=== PATIENT | male | born 1965 | race Caucasian/White ===

== ENCOUNTER → 2018-01-26 11:00 | Outpatient (CLI) | payer MEDICAID, SELFPAY ==
[2018-01-26 11:29] LABS: Hemoglobin A1C 5.6 % (0.0-7.0)
[2018-01-26 11:46] LABS: Basophils # 0.1 K/mm3 (0-0.2); Basophils % 0.6 % (0.1-2.0); Eosinophils # 0.4 K/mm3 (0.0-0.4); Eosinophils % 4.2 % (0.1-12.0); Hematocrit 43.5 % (42.0-52.0); Hemoglobin 13.8 g/dL (14.1-18.0); Lymphocytes # 2.3 K/mm3 (0.7-4.5); Lymphocytes % 21.8 K/mm3 (10-50); Mean Corpuscular HGB Conc 31.8 g/dL (31.8-35.4); Mean Corpuscular Hemoglobin 29.8 pg (27.0-31.2); Mean Corpuscular Volume 93.7 fl (80-94); Mean Platelet Volume 7.9 fl (7.4-10.4); Monocytes # 0.7 K/mm3 (0.1-1.0); Monocytes % 6.9 % (1.7-9.3); Neutrophils % 66.5 % (37.0-80.0); Platelet Count 269 K/mm3 (142-424); Red Blood Count 4.65 M/mm3 (4.60-6.20); Red Cell Distribution Width 14.5 % (11.5-17.5); White Blood Count 10.5 K/mm3 (4.8-10.8)
[2018-01-26 13:03] LABS: Alanine Aminotransferase 34 U/L (12-78); Albumin Level 3.1 gm/dL (3.4-5.0); Albumin/Globulin Ratio 0.7 (1.1-1.8); Alkaline Phosphatase 90 U/L (46-116); Anion Gap 10.2 mEq/L (5-15); Aspartate Amino Transferase 19 U/L (15-37); Bilirubin,Total 0.3 mg/dL (0.2-1.0); Blood Urea Nitrogen 17 mg/dL (7-18); Calcium 8.7 mg/dL (8.5-10.1); Carbon Dioxide 30 mmol/L (21.0-32.0); Chloride 103 mmol/L (98-107); Cholesterol 206 mg/dL (140-200); Creatinine,Serum 1.02 mg/dL (0.70-1.30); Estimated Glomerular Filt Rate 77 ml/min (>60); GFR (African American) 93 ML/MIN (>60); Globulin 4.2 gm/dl (1.3-3.2); Glucose 88 mg/dL (74-106); HDL Cholesterol 69 mg/dL (27-67); LDL Cholesterol 122 mg/dL (0-130); Potassium 4.2 mmoL/L (3.5-5.1); Sodium 139 mmol/L (136-145); Thyroid Stimulating Hormone 2.74 uIU/ml (0.358-3.740); Total Protein,Serum 7.3 gm/dL (6.4-8.2); Triglycerides 75 mg/dL (30-200); VLDL Cholesterol 15 mg/dL (0-40)
== END ==
PROVIDERS: PCP Nurse Practitioner Family; Visit Provider Nurse Practitioner Family
DX: R73.9 Hyperglycemia, unspecified (principal); L03.115 Cellulitis of right lower limb; L03.116 Cellulitis of left lower limb; Z00.00 Encounter for general adult medical examination without abnormal findings; Z68.43 Body mass index [BMI] 50.0-59.9, adult
CPT/HCPCS: 36415; 80053; 80061; 83036; 84443; 85025

== ENCOUNTER 2018-05-20 10:08 | Outpatient (RCR) | payer MEDICAID, SELFPAY ==
--- NOTE | 2018-05-20 12:05 | HMH.PTOPWND ---
Rehab Outpt Wound Evaluation Rehab OP Wound Evaluation Start: 05/20/18 10:20 Freq: Status: Active Protocol: Document 05/20/18 11:55 LIANE (Rec: 05/20/18 12:03 PHOFERNANDO [id number]) Electronically Signed By Alexsander Benitez, PT 05/20/18 11:55 Subjective/History History History Pt is 52 yo white male who presents with c/o left LE edema and weeping drainage x ~ 1 yr. 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 He reports no pain at rest, but does have tenderness to palpation and intermittent numbness/tingling. He also reports he has previpously had symptoms in the right LE, as well. He reports no significant PMH. Wound Eval Wound Left Lateral Calf Wound Type Stasis Ulcer Is This a Chronic Wound Yes Wound Length (cm) 10.0 Wound Width (cm) 5.3 Wound Bed Appearance Buhler Edematous Wound Margins Description Macerated Surrounding Tissue Appearance Buhler Edema Type Non-Pitting Edema Appearance Weeping Shiny Tight Hard Open Sores Red Drainage Description Serous Drainage Amount Copious Wound Topical Solution/Irrigant Saline Irrigant Packing Type Alginate Primary Dressing Unna Boot Wound Secondary Dressing Type Gauze Roll/Wrap Adhering Gauze Roll Wound Debridement Method Mechanical Wound Debridement Amount of Tissue Minimal Removed Dressing Change Patient Tolerance Tolerated Well Lymphedema Eval Classification of Lymphedema Secondary Lymphedema Yes: due to CVI Stage of Lymphedema Lymphedema stages Stage III (Non-pitting, fibrosis and sclerosis, skin changes) Skin Changes Dry Skin Yes Taut, Shiny Skin Yes Skin Folds Yes Papillomatosis Yes Redness Yes Blisters Yes Wounds
[2018-05-20 12:51] LABS: Basophils # 0.1 K/mm3 (0-0.2); Basophils % 0.6 % (0.1-2.0); Eosinophils # 0.5 K/mm3 (0.0-0.4); Eosinophils % 5.5 % (0.1-12.0); Hematocrit 44.1 % (42.0-52.0); Hemoglobin 13.7 g/dL (14.1-18.0); Lymphocytes # 1.9 K/mm3 (0.7-4.5); Lymphocytes % 18.8 K/mm3 (10-50); Mean Corpuscular Hemoglobin 29.1 pg (27.0-31.2); Mean Platelet Volume 7.7 fl (7.4-10.4); Monocytes # 0.6 K/mm3 (0.1-1.0); Monocytes % 5.7 % (1.7-9.3); Neutrophils # 6.9 K/mm3 (1.8-7.8); Neutrophils % 69.4 % (37.0-80.0); Platelet Count 279 K/mm3 (142-424); Red Blood Count 4.69 M/mm3 (4.60-6.20); Red Cell Distribution Width 14.9 % (11.5-17.5); White Blood Count 9.9 K/mm3 (4.8-10.8)
[2018-05-20 13:47] LABS: Alanine Aminotransferase 36 U/L (12-78); Albumin Level 3.2 gm/dL (3.4-5.0); Albumin/Globulin Ratio 0.7 (1.1-1.8); Alkaline Phosphatase 100 U/L (46-116); Anion Gap 11.2 mEq/L (5-15); Aspartate Amino Transferase 27 U/L (15-37); Bilirubin,Total 0.6 mg/dL (0.2-1.0); Blood Urea Nitrogen 12 mg/dL (7-18); Calcium 8.9 mg/dL (8.5-10.1); Carbon Dioxide 30 mmol/L (21.0-32.0); Chloride 101 mmol/L (98-107); Creatinine,Serum 0.92 mg/dL (0.70-1.30); Estimated Glomerular Filt Rate 86 ml/min (>60); GFR (African American) 105 ML/MIN (>60); Globulin 4.3 gm/dl (1.3-3.2); Glucose 93 mg/dL (74-106); Magnesium 1.9 mg/dL (1.4-2.2); Potassium 4.2 mmoL/L (3.5-5.1); Sodium 138 mmol/L (136-145); Total Protein,Serum 7.5 gm/dL (6.4-8.2)
== END 2018-05-20 10:09 | disposition home or self-care (01) ==
LOC: PT 10:08
PROVIDERS: PCP Nurse Practitioner Family; Visit Provider Nurse Practitioner Family
DX: I89.0 Lymphedema, not elsewhere classified (principal); R60.9 Edema, unspecified
CPT/HCPCS: 36415; 80053; 83735; 83880; 85025; 97162

== ENCOUNTER → 2018-05-20 12:45 | Outpatient (CLI) | payer MEDICAID, SELFPAY | PROVIDERS: Visit Provider Internal Medicine | DX: R06.02 Shortness of breath (principal); I50.31 Acute diastolic (congestive) heart failure | CPT/HCPCS: 36415; 80053; 83735; 83880; 85025 ==

== ENCOUNTER → 2018-08-10 09:30 | Outpatient (CLI) | payer MEDICAID, SELFPAY ==
[2018-08-10 13:04] LABS: Alanine Aminotransferase 53 U/L (12-78); Albumin Level 3.3 gm/dL (3.4-5.0); Albumin/Globulin Ratio 0.8 (1.1-1.8); Alkaline Phosphatase 95 U/L (46-116); Anion Gap 12.4 mEq/L (5-15); Aspartate Amino Transferase 29 U/L (15-37); Bilirubin,Total 0.5 mg/dL (0.2-1.0); Blood Urea Nitrogen 13 mg/dL (7-18); Calcium 8.9 mg/dL (8.5-10.1); Carbon Dioxide 29 mmol/L (21.0-32.0); Chloride 105 mmol/L (98-107); Creatinine,Serum 1.03 mg/dL (0.70-1.30); Estimated Glomerular Filt Rate 76 ml/min (>60); Free Thyroxine Index 2.2 ug/dL (5.93-13.13); GFR (African American) 91 ML/MIN (>60); Globulin 4.3 gm/dl (1.3-3.2); Glucose 99 mg/dL (74-106); Magnesium 1.9 mg/dL (1.4-2.2); Potassium 4.4 mmoL/L (3.5-5.1); Sodium 142 mmol/L (136-145); Thyroid Stimulating Hormone 1.96 uIU/ml (0.358-3.740); Total Protein,Serum 7.6 gm/dL (6.4-8.2); Triiodothryronine (T3) Uptake 36 % (31-39)
== END ==
PROVIDERS: PCP Nurse Practitioner Family; Visit Provider Nurse Practitioner Family
DX: I89.0 Lymphedema, not elsewhere classified (principal); Z68.43 Body mass index [BMI] 50.0-59.9, adult
CPT/HCPCS: 36415; 80053; 83735; 84436; 84443; 84479

== ENCOUNTER 2018-10-05 20:57 | Inpatient (IN) ==
--- NOTE | 2018-10-05 21:23 | Emergency Department Note ---
ED Disposition Clinical Impression: Cellulitis of left lower extremity Disposition: Still a Patient Condition on Discharge: Fair - Critical Care Critical Care Time: No Attestation: On 10/05/18, the high probability of a clinically significant, sudden or life threatening deterioration of the following system(s) required my full and direct attention, intervention and personal management. The time I documented below is in addition to time spent performing reported procedures but includes the following listed in this critical care notation. Medical Decision Making - Sajan Inquiry Pt receiving controlled substance: No Vital Signs: 10/05/18 21:02 Temperature 98.0 F Temperature Source Oral Respiratory Rate 18 Blood Pressure [Right Arm] 118/74 Blood Pressure Mean [Right Arm] 88 Blood Pressure Source [Right Arm] Automatic Cuff Blood Pressure Position [Right Arm] Sitting 02 Sat by Pulse Oximetry 95 - Lab Data Lab Results 10/05/18 21:15: WBC 13.9 H, RBC 4.01 L, Hgb 12.3 L, Hct 39.4 L, MCV 98.1 H, MCH 30.6, MCHC 31.2 L, RDW 14.9, Plt Count 322, MPV 7.5, Neut % (Auto) 78.7, Lymph % (Auto) 12.4, [place] % (Auto) 5.0, Eos % (Auto) 2.8, Baso % (Auto) 1.1, Neut # (Auto) 10.9 H, Lymph # (Auto) 1.7, [place] # (Auto) 0.7, Eos # (Auto) 0.4, Baso # (Auto) 0.2 10/05/18 21:15: Sodium 137, Potassium 4.4, Chloride 99, Carbon Dioxide 29, Anion Gap 13.4, BUN 26 H, Creatinine 1.19, Estimated Creat Clear 74, Estimated GFR 64, Est GFR ( Amer) 77, Glucose 171 H, Calcium 8.8, Total Bilirubin 0.4, AST 22, ALT 32, Alkaline Phosphatase 154 H, C-Reactive Protein 19.6 H, Total Protein 8.2, Albumin 2.0 L, Globulin 6.2 H, Albumin/Globulin Ratio 0.3 L 10/05/18 21:15: Lactate 1.3 10/05/18 21:15: ESR > 120 H 10/05/18 21:15: D-Dimer 1760 H* 10/05/18 21:15: Hemoglobin A1c 5.9 Result diagrams: 10/05/18 21:15 10/05/18 21:15 Orders (Tests/Meds): ED MEDICATIONS Generic Name Dose Route Start Last Admin Trade Name Freq PRN Reason Stop Dose Admin Enoxaparin Sodium 175 mg 10/05/18 22:45 Lovenox 150mg/Ml Syringe SQ 11/04/18 22:44 Q12H MARTINEZ Vancomycin HCl 2,500 mg/ 250 mls @ 125 mls/hr 10/05/18 22:30 Sodium Chloride IV 10/19/18 22:29 Q12H MARTINEZ Discontinued Medications Generic Name Dose Route Start Last Admin Trade Name Freq PRN Reason Stop Dose Admin Miscellaneous 1 each 10/05/18 21:41 Vancomycin Consult Request NOTAPPLIC 10/05/18 21:42 CONSULT PHARMACY ONE Potassium Chloride 60 meq 10/05/18 21:32 10/05/18 21:55 Klor-Con 20meq Tablet PO 10/05/18 21:33 Not Given ONCE ONE Potassium Chloride/Water 20 meq 10/05/18 21:32 Potassium Chloride 20meq/100ml Ivpb IV 10/05/18 21:33 ONCE ONE ORDERS Category Date Time Status Blood Culture Stat Micro 10/05/18 21:17 Ordered - Physician Consults Physician Consulted: Blake Yousif Time: 22:33 Reason -: Admission Comment/Response: Agrees to admit the patient to the hospital. We discussed the patient's clinical information, including history, exam, laboratory and radiology results and ED course. Per hospital procedure, I will write temporary bridge inpatient orders on the patient. Specific orders requested by the admitting physician: Vancomycin. Lovenox and inpatient Doppler ultrasound if d- dimer elevated. Hemoglobin A1c. Low-dose sliding scale insulin. General Adult HPI - General Chief complaint: Skin/Abscess/Foreign Body Stated complaint: Legs swelling, blisters, poss cellulitis Time Seen by Provider: 10/05/18 21:23 Mode of Arrival: Wheelchair Limitations: Physical Limitations Description of Symptoms (Recalled from ER Triage Doc. by RN): Pt reports cellulitis in hes left leg. Redness blisters edema and pain reported from the tip of is toes to his upper leg. Pt reports he is currently on antibiotics but the condition has gotten worse. - History of Present Illness HPI narrative: Complains of cellulitis in his left leg began on Sunday. Has a history of recurrent cellulitis of his legs. He has lymphedema and venous stasis. He normally has some red discoloration of his left lower extremity between his knee and his foot, but on Sunday it began getting red above his knee up to his proximal thigh and down into his foot. He has also developed a large mass swelling of his foot. Blister formation has begun as well and he has blisters on his toes, pandey, and medial left thigh left knee. His says that he had some subjective fevers and chills on Sunday and Sunday, temperature not taken. He says that the leg feels hot as well. He was started on doxycycline on by a phone prescription but has not improved, has worsened. He was to see his primary care provider this morning, but could not make it to his appointment because [place] was [place] of [place] and was advised to come to the emergency room tonight instead. 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 He was in [place] earlier today. Denies prior history of DVT. He is not having any chest pain or shortness of breath. - Related Data Home Medications Medication Instructions Recorded Confirmed Doxycycline Hyclate [Doxycycline 100 mg PO BID 10/05/18 10/05/18 100mg Capsule] Furosemide [Furosemide 40MG tAB] 40 mg PO BID 10/05/18 10/05/18 Spironolactone 50 mg PO BID 10/05/18 10/05/18 Allergies Allergy/AdvReac Type Severity Reaction Status Date / Time grass pollen Allergy Severe Sneezing Verified 10/05/18 21:08 [facility] History Medical History: Reports:: Hyperlipidemia Other Surgeries: Yes: No Previous Surgery Amputation: No Fractures: No Comment: Dental - Social History Smoking Status: Former smoker Alcohol Intake: current Alcohol Intake Frequency:: a few times a month Substance Use Type: denies use - Psychiatric History Expresses thoughts of harming self/others: None Suicide Plan Description: No Plan Family Hx:: Cancer, Heart Attack ROS Obtained: Yes All systems reviewed & no additional complaints - Constitutional Constitutional: Reports chills, Reports fever(s) (Subjective) - Cardiovascular Cardiovascular: Denies chest pain - Respiratory Respiratory: No dyspnea - Gastrointestinal Gastrointestingal: Denies: diarrhea, vomiting - Musculoskeletal Musculoskeletal: Reports as per HPI Physical Exam - General General appearance: alert, in no apparent distress Comment: Sitting in wheelchair - Head Head exam: atraumatic, normocephalic - Eye Eye exam: Present: normal appearance, PERRL, EOMI - ENT ENT exam: Present: mucous membranes moist - Neck Neck exam: Present: normal inspection, trachea midline - Chest Chest inspection: Present: normal inspection, symmetric chest wall rise - Respiratory Respiratory exam: Present: normal lung sounds bilaterally. Absent: respiratory distress - Cardiovascular Cardiovascular exam: Present: regular rate, normal rhythm, normal heart sounds - Abdominal Exam Abdominal exam: Present: soft. Absent: distention, tenderness - Expanded Lower Extremity Exam Left Comment: Lymphedema and venous stasis changes of both legs. The left lower extremity shows circumferential erythema, warmth, tenderness from the proximal thigh down to the tips of the toes. There is vesicle formation over the dorsum of the toes, pretibial area, and medial left knee and thigh. Large amount of edema of left lower extremity, 4+/4+. - Neurological Exam Neurological exam: Present: alert, oriented X3. Absent: motor sensory deficit - Psychiatric Psychiatric exam: Present: normal affect, normal mood - Skin Skin exam: Present: warm, dry
[2018-10-05 21:37] LABS: Basophils # 0.2 K/mm3 (0-0.2); Basophils % 1.1 % (0.1-2.0); Eosinophils # 0.4 K/mm3 (0.0-0.4); Eosinophils % 2.8 % (0.1-12.0); Hematocrit 39.4 % (42.0-52.0); Hemoglobin 12.3 g/dL (14.1-18.0); Lymphocytes # 1.7 K/mm3 (0.7-4.5); Lymphocytes % 12.4 % (10-50); Mean Corpuscular HGB Conc 31.2 g/dL (31.8-35.4); Mean Corpuscular Hemoglobin 30.6 pg (27.0-31.2); Mean Corpuscular Volume 98.1 fl (80-94); Mean Platelet Volume 7.5 fl (7.4-10.4); Monocytes # 0.7 K/mm3 (0.1-1.0); Neutrophils # 10.9 K/mm3 (1.8-7.8); Neutrophils % 78.7 % (37.0-80.0); Platelet Count 322 K/mm3 (142-424); Red Blood Count 4.01 M/mm3 (4.60-6.20); Red Cell Distribution Width 14.9 % (11.5-17.5); White Blood Count 13.9 K/mm3 (4.8-10.8)
[2018-10-05 21:52] LABS: Albumin/Globulin Ratio 0.3 (1.1-1.8); Anion Gap 13.4 mEq/L (5-15); Bilirubin,Total 0.4 mg/dL (0.2-1.0); Calcium 8.8 mg/dL (8.5-10.1); Globulin 6.2 gm/dl (1.3-3.2); Potassium 4.4 mmoL/L (3.5-5.1); Total Protein,Serum 8.2 gm/dL (6.4-8.2)
[2018-10-05 22:02] LABS: C-Reactive Protein 19.6 mg/L (0.0-0.9)
[2018-10-06 06:43] LABS: Basophils # 0.2 K/mm3 (0-0.2); Eosinophils # 0.3 K/mm3 (0.0-0.4); Eosinophils % 2.2 % (0.1-12.0); Hematocrit 36.4 % (42.0-52.0); Hemoglobin 11.3 g/dL (14.1-18.0); Lymphocytes # 1.8 K/mm3 (0.7-4.5); Lymphocytes % 11.8 % (10-50); Mean Corpuscular Hemoglobin 30.3 pg (27.0-31.2); Mean Corpuscular Volume 97.9 fl (80-94); Mean Platelet Volume 7.4 fl (7.4-10.4); Monocytes # 0.7 K/mm3 (0.1-1.0); Monocytes % 4.6 % (1.7-9.3); Neutrophils % 80.3 % (37.0-80.0); Platelet Count 322 K/mm3 (142-424); Red Blood Count 3.72 M/mm3 (4.60-6.20)
[2018-10-06 07:06] LABS: Anion Gap 21.6 mEq/L (5-15); Potassium 4.6 mmoL/L (3.5-5.1)
[2018-10-06 07:16] LABS: Hypochromasia 1+; Lymphocytes % 13 % (10-50); Monocytes % 4 % (2-9); Neutrophils % 78 % (42-76); Rouleaux 1+; Total Cells Counted 100
--- NOTE | 2018-10-06 07:28 | History & Physical Report ---
*Admission Date: 10/06/18 *Chief complaint: Left leg pain and swelling *History of present illness: 53-year-old male with history of chronic venous insufficiency and venous stasis with prior cellulitis of the right leg presented to the emergency department with pain, swelling, redness and heat radiating from the lower leg. 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 Yousif's office as he believes he was developing cellulitis in the left leg. He was placed on oral antibiotics and initial plan had been for the patient follow-up in office yesterday. Due to travel delays patient did not get home until yesterday evening and because of the continued pain, redness, swelling in the left leg he presented to the emergency department. In the emergency department he was diagnosed with a cellulitis of the left leg and foot and has been admitted for IV antibiotics. Patient believes he has had fevers as high as 102 degrees prior to presentation. He has had increasing difficulty ambulating because of the pain in his leg. [facility] History Medical History: Reports:: Congestive Heart Failure, Hyperlipidemia, Hypertension Comment: Chronic venous insufficiency of both legs, morbid obesity Other Surgeries: Yes: No Previous Surgery Amputation: No Fractures: No - *Social History Educational Level: Attended College Smoking Status: Former smoker Alcohol Intake: current Alcohol Intake Frequency:: a few times a month Substance Use Type: denies use Occupational Status: employed Housing: house Household Members: spouse - Psychiatric History Expresses thoughts of harming self/others: None Suicide Plan Description: No Plan *Family Hx:: Cancer, Heart Attack Review of Systems - Constitutional Reports chills, Denies body ache(s), Denies malaise - *Cardiovascular Denies chest pain, Denies chest pain at rest - *Respiratory Denies chest congestion, Denies cough, Denies shortness of breath - *Gastrointestinal Denies abdominal pain - *Musculoskeletal Reports abnormal walking - Integumentary/Breasts Reports change in skin color, Reports changing lesions, Reports redness Meds Home Medications Medication Instructions Recorded Confirmed Type Doxycycline Hyclate [Doxycycline 100 mg PO BID 10/05/18 10/05/18 History 100mg Capsule] Furosemide [Furosemide 40MG tAB] 40 mg PO BID 10/05/18 10/05/18 History Spironolactone 50 mg PO BID 10/05/18 10/05/18 History Allergies Allergy/AdvReac Type Severity Reaction Status Date / Time grass pollen Allergy Severe Sneezing Verified 10/05/18 21:08 Exam Vital signs and Labs for Last 24 Hours: Temp Pulse Resp BP Pulse Ox 98.8 F 91 H 20 113/60 90 L 10/06/18 04:00 10/06/18 04:00 10/06/18 04:00 10/06/18 04:00 10/06/18 04:00 Laboratory Results - last 24 hr 10/05/18 21:15: WBC 13.9 H, RBC 4.01 L, Hgb 12.3 L, Hct 39.4 L, MCV 98.1 H, MCH 30.6, MCHC 31.2 L, RDW 14.9, Plt Count 322, MPV 7.5, Neut % (Auto) 78.7, Lymph % (Auto) 12.4, [place] % (Auto) 5.0, Eos % (Auto) 2.8, Baso % (Auto) 1.1, Neut # (Auto) 10.9 H, Lymph # (Auto) 1.7, [place] # (Auto) 0.7, Eos # (Auto) 0.4, Baso # (Auto) 0.2 10/05/18 21:15: Sodium 137, Potassium 4.4, Chloride 99, Carbon Dioxide 29, Anion Gap 13.4, BUN 26 H, Creatinine 1.19, Estimated Creat Clear 74, Estimated GFR 64, Est GFR ( Amer) 77, Glucose 171 H, Calcium 8.8, Total Bilirubin 0.4, AST 22, ALT 32, Alkaline Phosphatase 154 H, C-Reactive Protein 19.6 H, Total Protein 8.2, Albumin 2.0 L, Globulin 6.2 H, Albumin/Globulin Ratio 0.3 L 10/05/18 21:15: Lactate 1.3 10/05/18 21:15: ESR > 120 H 10/05/18 21:15: D-Dimer 1760 H* 10/05/18 21:15: Hemoglobin A1c 5.9 10/06/18 06:05: POC Glucose 120 H 10/06/18 06:15: WBC 15.0 H, RBC 3.72 L, Hgb 11.3 L, Hct 36.4 L, MCV 97.9 H, MCH 30.3, MCHC 31.0 L, RDW 15.0, Plt Count 322, MPV 7.4, Neut % (Auto) 80.3 H, Lymph % (Auto) 11.8, [place] % (Auto) 4.6, Eos % (Auto) 2.2, Baso % (Auto) 1.0, Neut # (Auto) 12.0 H, Lymph # (Auto) 1.8, [place] # (Auto) 0.7, Eos # (Auto) 0.3, Baso # (Auto) 0.2, Total Counted 100, Neutrophils % (Manual) 78 H, Band Neutrophils % 5.0, Lymphocytes % (Manual) 13, Monocytes % (Manual) 4, Platelet Estimate Normal, Hypochromasia 1+, Rouleaux 1+ 10/06/18 06:15: Sodium 139, Potassium 4.6, Chloride 102, Carbon Dioxide 20 L D, Anion Gap 21.6 H, BUN 20 H, Creatinine 1.03, Estimated Creat Clear 86, Estimated GFR 76, Est GFR ( Amer) 91, Glucose 128 H D, Calcium 8.0 L I & O for Last 24 hours: Intake & Output 10/03/18 10/04/18 10/05/18 10/06/18 11:59 11:59 11:59 11:59 Intake Total 850 / 850 Output Total 700 / 700 Balance 150 / 150 Weight 354 lb 3 oz - Constitutional no acute distress - *Routine Respiratory Exam Present: CTA bilaterally - *Routine Cardiovascular Exam Present: RRR, Normal S1, Normal S2. Absent: murmur - *Routine Abdominal Exam Comments: Obese and soft - *Routine Extremities Exam Comments: The left leg is swollen and erythematous from the mid thigh to the foot. Patient has some sloughing of skin over the mid pandey. Significant nodularity of the skin below the knee consistent with his chronic venous insufficiency. Foot and lower leg are tender to palpation. Assessment and Plan (1) Cellulitis of left lower extremity Current visit: Yes Status: Acute Category: Medical Code(s): L03.116 - Cellulitis of left lower limb (2) Morbid obesity Current visit: Yes Status: Acute Category: Medical Code(s): E66.01 - Morbid (severe) obesity due to excess calories (3) Chronic venous insufficiency Current visit: Yes Status: Acute Category: Medical Code(s): I87.2 - Venous insufficiency (chronic) (peripheral) - Assessment and plan all Dx Assessment and Plan for all problems:: Patient has been admitted and placed on vancomycin. I am going to add clindamycin to his regimen. Home medications will be ordered. Patient had el evated d-dimer along with his complaint of left leg pain and a venous Doppler will be performed. Continue Lovenox at this time
--- NOTE | 2018-10-06 09:45 | Pharmacy Consult Notes ---
[facility] Pharmacy VTE Monitoring - Patient Demographics Admission date: 10/05/18 Report Date: 10/06/18 Time: 09:45 Allergies/Adverse Reactions: Patient Allergies grass pollen Allergy (Severe, Verified 10/05/18 21:08) Sneezing Height: 1.78 m Weight: 160.657 kg Patient Problems: Current Active Problems Cellulitis of left lower extremity (Acute) Morbid obesity (Acute) Chronic venous insufficiency (Acute) - VTE Risk Labs: VTE Related Lab Results Hgb 11.3 g/dL (14.1-18.0) L 10/06/18 06:15 Hct 36.4 % (42.0-52.0) L 10/06/18 06:15 Plt Count 322 K/mm3 (142-424) 10/06/18 06:15 BUN 20 mg/dL (7-18) H 10/06/18 06:15 Creatinine 1.03 mg/dL (0.70-1.30) 10/06/18 06:15 Estimated Creat Clear 86 mL/min (50-200) 10/06/18 06:15 Was VTE Risk Assessment Performed: Yes VTE Score: 3 VTE Risk Level: Low Risk - Prophylaxis VTE Prophylaxis Ordered?: Yes Types of VTE Prophylaxis: Pharmacological Pharmacologic Type: Enoxaparin - VTE Diagnosis Confirmed Treatment or plan recommended: Continue Current Treatment
--- NOTE | 2018-10-06 09:45 | Pharmacy Consult Notes ---
- Pharmacy Consult Date: 10/06/18 Time: 09:42 Referring provider: DR. ARREDONDO Reason for Consult:: VANCOMYCIN DOSING Allergies and ADEs:: Allergies Allergy/AdvReac Type Severity Reaction Status Date / Time grass pollen Allergy Severe Sneezing Verified 10/05/18 21:08 Home Medications:: Home Medications Medication Instructions Recorded Confirmed Type Doxycycline Hyclate [Doxycycline 100 mg PO BID 10/05/18 10/05/18 History 100mg Capsule] Furosemide [Furosemide 40MG tAB] 40 mg PO BID 10/05/18 10/05/18 History Spironolactone 50 mg PO BID 10/05/18 10/05/18 History Height: 1.78 m Weight: 160.657 kg Laboratory Results:: Laboratory Results - last 24 hr 10/05/18 21:15: WBC 13.9 H, RBC 4.01 L, Hgb 12.3 L, Hct 39.4 L, MCV 98.1 H, MCH 30.6, MCHC 31.2 L, RDW 14.9, Plt Count 322, MPV 7.5, Neut % (Auto) 78.7, Lymph % (Auto) 12.4, [place] % (Auto) 5.0, Eos % (Auto) 2.8, Baso % (Auto) 1.1, Neut # (Auto) 10.9 H, Lymph # (Auto) 1.7, [place] # (Auto) 0.7, Eos # (Auto) 0.4, Baso # (Auto) 0.2 10/05/18 21:15: Sodium 137, Potassium 4.4, Chloride 99, Carbon Dioxide 29, Anion Gap 13.4, BUN 26 H, Creatinine 1.19, Estimated Creat Clear 74, Estimated GFR 64, Est GFR ( Amer) 77, Glucose 171 H, Calcium 8.8, Total Bilirubin 0.4, AST 22, ALT 32, Alkaline Phosphatase 154 H, C-Reactive Protein 19.6 H, Total Protein 8.2, Albumin 2.0 L, Globulin 6.2 H, Albumin/Globulin Ratio 0.3 L 10/05/18 21:15: Lactate 1.3 10/05/18 21:15: ESR > 120 H 10/05/18 21:15: D-Dimer 1760 H* 10/05/18 21:15: Hemoglobin A1c 5.9 10/06/18 06:05: POC Glucose 120 H 10/06/18 06:15: WBC 15.0 H, RBC 3.72 L, Hgb 11.3 L, Hct 36.4 L, MCV 97.9 H, MCH 30.3, MCHC 31.0 L, RDW 15.0, Plt Count 322, MPV 7.4, Neut % (Auto) 80.3 H, Lymph % (Auto) 11.8, [place] % (Auto) 4.6, Eos % (Auto) 2.2, Baso % (Auto) 1.0, Neut # (Auto) 12.0 H, Lymph # (Auto) 1.8, [place] # (Auto) 0.7, Eos # (Auto) 0.3, Baso # (Auto) 0.2, Total Counted 100, Neutrophils % (Manual) 78 H, Band Neutrophils % 5.0, Lymphocytes % (Manual) 13, Monocytes % (Manual) 4, Platelet Estimate Normal, Hypochromasia 1+, [place] 1+ 10/06/18 06:15: Sodium 139, Potassium 4.6, Chloride 102, Carbon Dioxide 20 L D, Anion Gap 21.6 H, BUN 20 H, Creatinine 1.03, Estimated Creat Clear 86, Estimated GFR 76, Est GFR ( Amer) 91, Glucose 128 H D, Calcium 8.0 L Medical History: Reports:: Congestive Heart Failure, Hyperlipidemia, Hyper tension Assessment and Plan (1) Cellulitis of left lower extremity Current visit: Yes Status: Acute Category: Medical Code(s): L03.116 - Cellulitis of left lower limb (2) Morbid obesity Current visit: Yes Status: Acute Category: Medical Code(s): E66.01 - Morbid (severe) obesity due to excess calories (3) Chronic venous insufficiency Current visit: Yes Status: Acute Category: Medical Code(s): I87.2 - Venous insufficiency (chronic) (peripheral) - Assessment and plan all Dx Assessment and Plan for all problems:: BASED ON PATIENT FACTORS, RECOMMEND VANCOMYCIN 3,000MG IV Q12H. PATIENT WAS GIVEN ONE TIME DOSE OF 2,500MG LAST NIGHT, BUT PATIENT'S RENAL FUNCTION HAS IMPROVED AND WEIGHT IS DIFFERENT THAN WHEN FIRST DOSED. PHARMACY WILL OBTAIN TROUGH LEVEL PRIOR TO FOURTH DOSE AT 1000 ON 10/06/18 AND WILL ADJUST DOSE APPROPRIATE AT THAT POINT. -FARRAH WHITED
[2018-10-07 07:17] LABS: Basophils # 0.2 K/mm3 (0-0.2); Basophils % 1.1 % (0.1-2.0); Eosinophils # 0.3 K/mm3 (0.0-0.4); Eosinophils % 1.8 % (0.1-12.0); Hemoglobin 11.2 g/dL (14.1-18.0); Lymphocytes # 2.2 K/mm3 (0.7-4.5); Lymphocytes % 13.2 % (10-50); Mean Corpuscular Hemoglobin 30.6 pg (27.0-31.2); Mean Corpuscular Volume 98.7 fl (80-94); Mean Platelet Volume 7.1 fl (7.4-10.4); Monocytes # 0.9 K/mm3 (0.1-1.0); Monocytes % 5.3 % (1.7-9.3); Neutrophils # 13.2 K/mm3 (1.8-7.8); Neutrophils % 78.7 % (37.0-80.0); Platelet Count 356 K/mm3 (142-424); Red Blood Count 3.65 M/mm3 (4.60-6.20); White Blood Count 16.8 K/mm3 (4.8-10.8)
--- NOTE | 2018-10-07 07:46 | Non-Invasive Vascular Report ---
"Venous Exam Indications: 782.3 Edema. IMPRESSIONS 1. There is no evidence of significant Reflux. 2. No evidence of deep or superficial vein thrombosis involving the left lower extremity Left lower extremity venous duplex evaluation. Doppler flow study including spectral analysis, color and gresham scale imaging. Location: Vascular laboratory. Patient status: Inpatient. Incidental findings: A conspicuous lymph is noted incidentally on the left. Tables: Venous flow and imaging: + + + + |Location |Overall |Flow properties | + + + + |Left common femoral |Patent |Normal phasicity; | | | |spontaneous; normal | | | |augmentation; compressible | + + + + |Left saphenofemoral junction|Patent |Compressible | + + + + |Left profunda femoral |Patent |Compressible | + + + + |Left femoral |Patent |Normal phasicity; | | | |spontaneous; normal | | | |augmentation; compressible | + + + + |Left greater saphenous |Patent |Normal phasicity; | | | |spontaneous; normal | | | |augmentation; compressible | + + + + |Left popliteal |Patent |Normal phasicity; | | | |spontaneous; normal | | | |augmentation; compressible | + + + + |Left posterior tibial |Patent |Compressible | + + + + |Left peroneal |Not visualized| | + + + + |Left gastrocnemius |Patent |Compressible | + + + + |Left soleal |Patent |Compressible | + + + + (Report amended ) Electronically signed by: Sammy Grover [id number]"
--- NOTE | 2018-10-07 08:19 | Progress Note ---
Internal Medicine - PN: Subj *Date: 10/07/18 *Time: 08:18 Interval history: Patient is awake. Eating well. Alert. Has had no sensation of fevers through the night. Exam Vital signs and Labs for Last 24 Hours: Temp Pulse Resp BP Pulse Ox 98.4 F 85 22 141/73 H 96 10/07/18 07:57 10/07/18 07:57 10/07/18 07:57 10/07/18 07:57 10/07/18 07:57 Laboratory Results - last 24 hr 10/07/18 06:25: WBC 16.8 H, RBC 3.65 L, Hgb 11.2 L, Hct 36.0 L, MCV 98.7 H, MCH 30.6, MCHC 31.0 L, RDW 15.0, Plt Count 356, MPV 7.1 L, Neut % (Auto) 78.7, Lymph % (Auto) 13.2, [place] % (Auto) 5.3, Eos % (Auto) 1.8, Baso % (Auto) 1.1, Neut # (Auto) 13.2 H, Lymph # (Auto) 2.2, [place] # (Auto) 0.9, Eos # (Auto) 0.3, Baso # (Auto) 0.2 I & O for Last 24 hours: Intake & Output 10/04/18 10/05/18 10/06/18 10/07/18 11:59 11:59 11:59 11:59 Intake Total 1210 / 1210 2365 / 2365 Output Total 1550 / 1550 3440 / 3440 Balance -340 / -340 -1075 / -1075 Weight 354 lb 3 oz 354 lb 3 oz Narrative: Both legs edematous with lymphedema. Left leg more so, massively swollen with significant induration and redness throughout the leg with spots of significant skin sloughing. No pulses are palpable because of the edema. Patient has has a warm leg that is not exquisitely tender. Oropharynx clear, lungs clear, abdomen soft but obesity limits exam, heart rate regular. Assessment and Plan (1) Cellulitis of left lower extremity Current visit: Yes Status: Acute Category: Medical Code(s): L03.116 - Cellulitis of left lower limb (2) Morbid obesity Current visit: Yes Status: Acute Category: Medical Code(s): E66.01 - Morbid (severe) obesity due to excess calories (3) Chronic venous insufficiency Current visit: Yes Status: Acute Category: Medical Code(s): I87.2 - Venous insufficiency (chronic) (peripheral) - Assessment and plan all Dx Assessment and Plan for all problems:: Venous studies negative for DVT. Continue aggressive IV antibiotics. PT evaluation for lymphedema evaluation. I have strongly counseled patient that he cannot go back to work until the situation is essentially resolved. Also needs to work diligently on weight l oss.
[2018-10-07 08:23] LABS: Lymphocytes % 11 % (10-50); Monocytes % 7 % (2-9); Neutrophils % 80 % (42-76); Total Cells Counted 100
--- NOTE | 2018-10-07 11:00 | Pharmacy Consult Notes ---
- Pharmacy Consult Date: 10/07/18 Time: 10:59 Referring provider: DR. ARREDONDO Reason for Consult:: VANCOMYCIN TROUGH LEVEL Allergies and ADEs:: Allergies Allergy/AdvReac Type Severity Reaction Status Date / Time grass pollen Allergy Severe Sneezing Verified 10/05/18 21:08 Home Medications:: Home Medications Medication Instructions Recorded Confirmed Type Doxycycline Hyclate [Doxycycline 100 mg PO BID 10/05/18 10/05/18 History 100mg Capsule] Furosemide [Furosemide 40MG tAB] 40 mg PO BID 10/05/18 10/05/18 History Spironolactone 50 mg PO BID 10/05/18 10/05/18 History Height: 1.78 m Weight: 160.657 kg Laboratory Results:: Laboratory Results - last 24 hr 10/07/18 06:25: WBC 16.8 H, RBC 3.65 L, Hgb 11.2 L, Hct 36.0 L, MCV 98.7 H, MCH 30.6, MCHC 31.0 L, RDW 15.0, Plt Count 356, MPV 7.1 L, Neut % (Auto) 78.7, Lymph % (Auto) 13.2, [place] % (Auto) 5.3, Eos % (Auto) 1.8, Baso % (Auto) 1.1, Neut # (Auto) 13.2 H, Lymph # (Auto) 2.2, [place] # (Auto) 0.9, Eos # (Auto) 0.3, Baso # (Auto) 0.2, Total Counted 100, Neutrophils % (Manual) 80 H, Band Neutrophils % 2.0, Lymphocytes % (Manual) 11, Monocytes % (Manual) 7, Platelet Estimate Normal 10/07/18 10:00: Vancomycin Trough 17.1 Medical History: Reports:: Congestive Heart Failure, Hyperlipidemia, Hypertension Assessment and Plan (1) Cellulitis of left lower extremity Current visit: Yes Status: Acute Category: Medical Code(s): L03.116 - Cellulitis of left lower limb (2) Morbid obesity Current visit: Yes Status: Acute Category: Medical Code(s): E66.01 - Morbid (severe) obesity due to excess calories (3) Chronic venous insufficiency Current visit: Yes Status: Acute Category: Medical Code(s): I87.2 - Venous insufficiency (chronic) (peripheral) - Assessment and plan all Dx Assessment and Plan for all problems:: BASED ON PATIENT FACTORS AND VANCOMYCIN TROUGH LEVEL, RECOMMEND CONTINUING VANCOMYCIN 3 GM IV Q12H. PHARMACY WILL CONTINUE TO MONITOR DAILY AND ADJUST APPROPRIATE.
[2018-10-08 06:43] LABS: Basophils # 0.2 K/mm3 (0-0.2); Eosinophils # 0.3 K/mm3 (0.0-0.4); Eosinophils % 1.6 % (0.1-12.0); Hematocrit 37.9 % (42.0-52.0); Hemoglobin 11.8 g/dL (14.1-18.0); Lymphocytes # 1.9 K/mm3 (0.7-4.5); Lymphocytes % 11.4 % (10-50); Mean Corpuscular HGB Conc 31.2 g/dL (31.8-35.4); Mean Corpuscular Hemoglobin 30.4 pg (27.0-31.2); Mean Corpuscular Volume 97.4 fl (80-94); Mean Platelet Volume 7.3 fl (7.4-10.4); Monocytes # 0.9 K/mm3 (0.1-1.0); Monocytes % 5.6 % (1.7-9.3); Neutrophils # 13.4 K/mm3 (1.8-7.8); Neutrophils % 80.3 % (37.0-80.0); Platelet Count 377 K/mm3 (142-424); Red Blood Count 3.89 M/mm3 (4.60-6.20); White Blood Count 16.6 K/mm3 (4.8-10.8)
[2018-10-08 07:07] LABS: Albumin Level 1.9 gm/dL (3.4-5.0); Albumin/Globulin Ratio 0.3 (1.1-1.8); Anion Gap 10.8 mEq/L (5-15); Bilirubin,Total 0.5 mg/dL (0.2-1.0); Globulin 6.2 gm/dl (1.3-3.2); Potassium 4.8 mmoL/L (3.5-5.1); Total Protein,Serum 8.1 gm/dL (6.4-8.2)
--- NOTE | 2018-10-08 08:02 | Progress Note ---
Internal Medicine - PN: Subj *Date: 10/08/18 *Time: 08:45 Interval history: Cellulitis doing no better, though no worse. No pain, tolerating p.o. intake. Remains afebrile. Hemodynamically stable. Blood cultures negative. no change in leading edge of erythema. Exam Vital signs and Labs for Last 24 Hours: Temp Pulse Resp BP Pulse Ox 97.9 F 80 20 121/52 L 94 L 10/08/18 04:00 10/08/18 04:00 10/08/18 04:00 10/08/18 04:00 10/08/18 04:00 Laboratory Results - last 24 hr 10/07/18 06:25: Total Counted 100, Neutrophils % (Manual) 80 H, Band Neutrophils % 2.0, Lymphocytes % (Manual) 11, Monocytes % (Manual) 7, Platelet Estimate Normal 10/07/18 10:00: Vancomycin Trough 17.1 10/08/18 06:18: WBC 16.6 H, RBC 3.89 L, Hgb 11.8 L, Hct 37.9 L, MCV 97.4 H, MCH 30.4, MCHC 31.2 L, RDW 15.0, Plt Count 377, MPV 7.3 L, Neut % (Auto) 80.3 H, Lymph % (Auto) 11.4, [place] % (Auto) 5.6, Eos % (Auto) 1.6, Baso % (Auto) 1.0, Neut # (Auto) 13.4 H, Lymph # (Auto) 1.9, [place] # (Auto) 0.9, Eos # (Auto) 0.3, Baso # (Auto) 0.2 10/08/18 06:18: Sodium 135 L, Potassium 4.8, Chloride 97 L, Carbon Dioxide 32 D , Anion Gap 10.8, BUN 14 D, Creatinine 1.06, Estimated Creat Clear 83, Estimated GFR 73, Est GFR ( Amer) 88, Glucose 102, Calcium 9.0 D, Total Bilirubin 0.5, AST 24, ALT 37, Alkaline Phosphatase 134 H, Total Protein 8.1, Albumin 1.9 L, Globulin 6.2 H, Albumin/Globulin Ratio 0.3 L I & O for Last 24 hours: Intake & Output 10/05/18 10/06/18 10/07/18 10/08/18 23:59 23:59 23:59 23:59 Intake Total 2475 / 2475 2730 / 2730 230 / 230 Output Total 3550 / 3550 4840 / 4840 1900 / 1900 Balance -1075 / -1075 -2110 / -2110 -1670 / -1670 Weight 160.657 kg 160.657 kg 160.657 kg 160.657 kg Microbiology Reports for the Last 24 Hours: Microbiology 10/05/18 21:17 Blood Blood Culture - Preliminary NO GROWTH AFTER 48 HOURS 10/05/18 21:15 Blood Blood Culture - Preliminary NO GROWTH AFTER 48 HOURS Narrative: Both legs edematous with lymphedema. Left leg more so, massively swollen with significant induration and redness throughout the leg with spots of significant skin sloughing and blistering. Leading edge remains at previous dilia, no recession or progression No pulses are palpable because of the edema. Patient has has a warm leg that is not exquisitely tender. Oropharynx clear, lungs clear, abdomen soft but obesity limits exam, heart rate regular. LCTAB, no rhonchi, wheeze RRR, distant heart sounds Obese abdomen with edematous changes to skin on panus. Assessment and Plan (1) Cellulitis of left lower extremity Current visit: Yes Status: Acute Category: Medical Code(s): L03.116 - Cellulitis of left lower limb broaden coverage due to no improvement - continue Vanc IV - initiate Zosyn IV - DC Clinda - PICC ordered as patient will need continued treatment for total of 10-14 days pending improvement with broadened coverage (2) Morbid obesity Current visit: Yes Status: Acute Category: Medical Code(s): E66.01 - Morbid (severe) obesity due to excess calories (3) Chronic venous insufficiency Current visit: Yes Status: Acute Category: Medical Code(s): I87.2 - Venous insufficiency (chronic) (peripheral) - Assessment and plan all Dx Assessment and Plan for all problems:: will assess fro swing status vs continued inpatient coverage vs outpatient Abx management.. Not medically stable for DC at this time
[2018-10-08 08:17] LABS: Eosinophils % 2 % (0-3); Lymphocytes % 13 % (10-50); Monocytes % 7 % (2-9); Neutrophils % 77 % (42-76); Total Cells Counted 100
[2018-10-08 08:18] LABS: RBC Morphology Normal
[2018-10-09 06:53] LABS: Basophils # 0.1 K/mm3 (0-0.2); Basophils % 0.8 % (0.1-2.0); Eosinophils # 0.3 K/mm3 (0.0-0.4); Eosinophils % 1.9 % (0.1-12.0); Hematocrit 36.6 % (42.0-52.0); Hemoglobin 11.3 g/dL (14.1-18.0); Lymphocytes # 2.2 K/mm3 (0.7-4.5); Lymphocytes % 14.8 % (10-50); Mean Corpuscular HGB Conc 30.8 g/dL (31.8-35.4); Mean Corpuscular Volume 97.4 fl (80-94); Mean Platelet Volume 7.2 fl (7.4-10.4); Monocytes # 0.9 K/mm3 (0.1-1.0); Monocytes % 6.3 % (1.7-9.3); Neutrophils # 11.4 K/mm3 (1.8-7.8); Neutrophils % 76.2 % (37.0-80.0); Platelet Count 377 K/mm3 (142-424); Red Blood Count 3.76 M/mm3 (4.60-6.20); Red Cell Distribution Width 15.1 % (11.5-17.5); White Blood Count 14.9 K/mm3 (4.8-10.8)
--- NOTE | 2018-10-09 08:11 | Discharge Summary ---
General - General Admission date:: 10/05/18 Discharge date: 10/09/18 HPI HPI: 53-year-old male with history of chronic venous insufficiency and venous stasis with prior cellulitis of the right leg presented to the emergency department with pain, swelling, redness and heat radiating from the lower leg. 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 Yousif's office as he believes he was developing cellulitis in the left leg. He was placed on oral antibiotics and initial plan had been for the patient follow-up in office yesterday. Due to travel delays patient did not get home until yesterday evening and because of the continued pain, redness, swelling in the left leg he presented to the emergency department. In the emergency department he was diagnosed with a cellulitis of the left leg and foot and has been a dmitted for IV antibiotics. Patient believes he has had fevers as high as 102 degrees prior to presentation. He has had increasing difficulty ambulating because of the pain in his leg. Objective Vital signs: Temp Pulse Resp BP Pulse Ox 99.2 F 98 H 20 131/69 96 10/09/18 08:00 10/09/18 08:00 10/09/18 08:00 10/09/18 08:00 10/09/18 08:00 Results Labs on day of discharge: Labs from last 24 hours 10/09/18 10/08/18 06:24 06:18 WBC 14.9 H RBC 3.76 L Hgb 11.3 L Hct 36.6 L MCV 97.4 H MCH 30.0 MCHC 30.8 L RDW 15.1 Plt Count 377 MPV 7.2 L Neut % (Auto) 76.2 Lymph % (Auto) 14.8 [place] % (Auto) 6.3 Eos % (Auto) 1.9 Baso % (Auto) 0.8 Neut # (Auto) 11.4 H Lymph # (Auto) 2.2 [place] # (Auto) 0.9 Eos # (Auto) 0.3 Baso # (Auto) 0.1 Total Counted 100 Neutrophils % (Manual) 77 H Band Neutrophils % 1.0 Lymphocytes % (Manual) 13 Monocytes % (Manual) 7 Eosinophils % (Manual) 2 Platelet Estimate Normal RBC Morphology Normal Preliminary micro results at discharge 10/05/18 21:17 Blood Culture - Preliminary Blood NO GROWTH AFTER 48 HOURS 10/05/18 21:15 Blood Culture - Preliminary Blood NO GROWTH AFTER 48 HOURS DS: Diagnosis - Discharge Diagnosis (1) Cellulitis of left lower extremity Status: Acute (2) Morbid obesity Status: Acute (3) Chronic venous insufficiency Status: Acute Discharge Plan - Patient Discharge Instructions - Follow up Plan Home Medications: Home Medications Medication Instructions Recorded Confirmed Type Doxycycline Hyclate [Doxycycline 100 mg PO BID 10/05/18 10/05/18 History 100mg Capsule] Furosemide [Furosemide 40MG tAB] 40 mg PO BID 10/05/18 10/05/18 History Spironolactone 50 mg PO BID 10/05/18 10/05/18 History Prescriptions/Medication Reconciliation: No Action Furosemide [Furosemide 40MG tAB] 40 mg PO BID Doxycycline Hyclate [Doxycycline 100mg Capsule] 100 mg PO BID Spironolactone 50 mg PO BID
--- NOTE | 2018-10-09 08:12 | Progress Note ---
Internal Medicine - PN: Subj *Date: 10/09/18 *Time: 09:30 Interval history: Patient remained stable overnight. No fevers, hypotension, nausea vomiting, diarrhea, chest pain, shortness of breath. Tolerating vancomycin and Zosyn. PICC placed yesterday. Exam Vital signs and Labs for Last 24 Hours: Temp Pulse Resp BP Pulse Ox 99.2 F 98 H 20 131/69 96 10/09/18 08:00 10/09/18 08:00 10/09/18 08:00 10/09/18 08:00 10/09/18 08:00 Laboratory Results - last 24 hr 10/08/18 06:18: Total Counted 100, Neutrophils % (Manual) 77 H, Band Neutrophils % 1.0, Lymphocytes % (Manual) 13, Monocytes % (Manual) 7, Eosinophils % (Manual) 2, Platelet Estimate Normal, RBC Morphology Normal 10/09/18 06:24: WBC 14.9 H, RBC 3.76 L, Hgb 11.3 L, Hct 36.6 L, MCV 97.4 H, MCH 30.0, MCHC 30.8 L, RDW 15.1, Plt Count 377, MPV 7.2 L, Neut % (Auto) 76.2, Lymph % (Auto) 14.8, [place] % (Auto) 6.3, Eos % (Auto) 1.9, Baso % (Auto) 0.8, Neut # (Auto) 11.4 H, Lymph # (Auto) 2.2, [place] # (Auto) 0.9, Eos # (Auto) 0.3, Baso # (Auto) 0.1 I & O for Last 24 hours: Intake & Output 10/06/18 10/07/18 10/08/18 10/09/18 23:59 23:59 23:59 23:59 Intake Total 2475 / 2475 2730 / 2730 1440 / 1440 1140 / 1140 Output Total 3550 / 3550 4840 / 4840 4350 / 4350 2250 / 2250 Balance -1075 / -1075 -2110 / -2110 -2910 / -2910 -1110 / -1110 Weight 160.657 kg 160.657 kg 160.657 kg 115.298 kg - Constitutional no acute distress, morbidly obese - *Routine HEENT Exam Head: Present: normocephalic, atraumatic Eye: Present: EOMI, PERRL ENT: Present: mucous membranes moist - *Routine Neck Exam Present: supple. Absent: JVD - *Routine Respiratory Exam Present: CTA bilaterally. Absent: prolonged expiratory phase, rales, wheezes, crackles - *Routine Cardiovascular Exam Present: RRR, Normal S1, Normal S2. Absent: murmur - *Routine Abdominal Exam Present: soft, normoactive bowel sounds Comments: Protuberant - *Routine Rectal Exam Patient deferred: visual exam - *Routine Exam Patient deferred: penile exam - *Routine Extremities Exam Present: edema. Absent: cyanosis, clubbing Comments: Significant erythema to mid thigh, interval improvement with resection from leading edge line drawn several days ago. First sign of improvement since initiating antibiotics. Still warm, no new blistering, Unna boot in place. Toes warm with good cap refill - *Routine Skin Exam Present: intact - *Routine Neurological Exam Present: alert, oriented X3. Absent: altered mental status Assessment and Plan (1) Cellulitis of left lower extremity Current visit: Yes Status: Acute Category: Medical Code(s): L03.116 - Cellulitis of left lower limb (2) Morbid obesity Current visit: Yes Status: Acute Category: Medical Code(s): E66.01 - Morbid (severe) obesity due to excess calories (3) Chronic venous insufficiency Current visit: Yes Status: Acute Category: Medical Code(s): I87.2 - Venous insufficiency (chronic) (peripheral) - Assessment and plan all Dx Assessment and Plan for all problems:: Patient clinically showing some signs of response to antibiotics. -PICC in place -Continue IV vancomycin and Zosyn as currently ordered -Dressing change per wound care -Continues to require inpatient medical management, possible discharge this weekend pending home health and infusion partners or returning to clinic/wound care for binges and infusion partners. Family to discuss viable option for themselves.
--- NOTE | 2018-10-09 10:19 | Progress Note ---
Internal Medicine - PN: Subj *Date: 10/09/18 *Time: 10:19 Exam Vital signs and Labs for Last 24 Hours: Temp Pulse Resp BP Pulse Ox 99.2 F 98 H 20 131/69 96 10/09/18 08:00 10/09/18 08:00 10/09/18 08:00 10/09/18 08:00 10/09/18 08:00 Laboratory Results - last 24 hr 10/09/18 06:24: WBC 14.9 H, RBC 3.76 L, Hgb 11.3 L, Hct 36.6 L, MCV 97.4 H, MCH 30.0, MCHC 30.8 L, RDW 15.1, Plt Count 377, MPV 7.2 L, Neut % (Auto) 76.2, Lymph % (Auto) 14.8, [place] % (Auto) 6.3, Eos % (Auto) 1.9, Baso % (Auto) 0.8, Neut # (Auto) 11.4 H, Lymph # (Auto) 2.2, [place] # (Auto) 0.9, Eos # (Auto) 0.3, Baso # (Auto) 0.1 I & O for Last 24 hours: Intake & Output 10/06/18 10/07/18 10/08/18 10/09/18 23:59 23:59 23:59 23:59 Intake Total 2475 / 2475 2730 / 2730 1440 / 1440 1140 / 1140 Output Total 3550 / 3550 4840 / 4840 4350 / 4350 2250 / 2250 Balance -1075 / -1075 -2110 / -2110 -2910 / -2910 -1110 / -1110 Weight 160.657 kg 160.657 kg 160.657 kg 115.298 kg Assessment and Plan (1) Cellulitis of left lower extremity Current visit: Yes Status: Acute Category: Medical Code(s): L03.116 - Cellulitis of left lower limb (2) Morbid obesity Current visit: Yes Status: Acute Category: Medical Code(s): E66.01 - Morbid (severe) obesity due to excess calories (3) Chronic venous insufficiency Current visit: Yes Status: Acute Category: Medical Code(s): I87.2 - Venous insufficiency (chronic) (peripheral) The patient's infection will respond to the chosen ABx?: Yes Is the patient receiving the right drug, dose, and route?: Yes Could a more targeted ABx be ordered?: No
--- NOTE | 2018-10-09 11:12 | Pharmacy Consult Notes ---
- Pharmacy Consult Date: 10/09/18 Time: 11:11 Referring provider: DR. ARREDONDO Reason for Consult:: VANCOMYCIN TROUGH LEVEL Allergies and ADEs:: Allergies Allergy/AdvReac Type Severity Reaction Status Date / Time grass pollen Allergy Severe Sneezing Verified 10/05/18 21:08 Home Medications:: Home Medications Medication Instructions Recorded Confirmed Type Doxycycline Hyclate [Doxycycline 100 mg PO BID 10/05/18 10/05/18 History 100mg Capsule] Furosemide [Furosemide 40MG tAB] 40 mg PO BID 10/05/18 10/05/18 History Spironolactone 50 mg PO BID 10/05/18 10/05/18 History Height: 1.78 m Weight: 115.298 kg Laboratory Results:: Laboratory Results - last 24 hr 10/09/18 06:24: WBC 14.9 H, RBC 3.76 L, Hgb 11.3 L, Hct 36.6 L, MCV 97.4 H, MCH 30.0, MCHC 30.8 L, RDW 15.1, Plt Count 377, MPV 7.2 L, Neut % (Auto) 76.2, Lymph % (Auto) 14.8, [place] % (Auto) 6.3, Eos % (Auto) 1.9, Baso % (Auto) 0.8, Neut # (Auto) 11.4 H, Lymph # (Auto) 2.2, [place] # (Auto) 0.9, Eos # (Auto) 0.3, Baso # (Auto) 0.1 10/09/18 10:10: Vancomycin Trough 14.3 Medical History: Reports:: Congestive Heart Failure, Hyperlipidemia, Hypertension Assessment and Plan (1) Cellulitis of left lower extremity Current visit: Yes Status: Acute Category: Medical Code(s): L03.116 - Cellulitis of left lower limb (2) Morbid obesity Current visit: Yes Status: Acute Category: Medical Code(s): E66.01 - Morbid (severe) obesity due to excess calories (3) Chronic venous insufficiency Current visit: Yes Status: Acute Category: Medical Code(s): I87.2 - Venous insufficiency (chronic) (peripheral) - Assessment and plan all Dx Assessment and Plan for all problems:: BASED ON PATIENT FACTORS AND VANCOMYCIN TROUGH LEVEL, RECOMMEND CONTINUING VANCOMYCIN 3 GM IV Q12H. PHARMACY WILL CONTINUE TO MONITOR DAILY AND ADJUST APPROPRIATE.
[2018-10-10 06:16] LABS: Basophils # 0.1 K/mm3 (0-0.2); Basophils % 0.9 % (0.1-2.0); Eosinophils # 0.5 K/mm3 (0.0-0.4); Eosinophils % 3.4 % (0.1-12.0); Hematocrit 38.2 % (42.0-52.0); Hemoglobin 11.6 g/dL (14.1-18.0); Lymphocytes # 2.3 K/mm3 (0.7-4.5); Lymphocytes % 16.8 % (10-50); Mean Corpuscular HGB Conc 30.5 g/dL (31.8-35.4); Mean Corpuscular Volume 98.4 fl (80-94); Mean Platelet Volume 7.2 fl (7.4-10.4); Monocytes # 0.9 K/mm3 (0.1-1.0); Monocytes % 6.9 % (1.7-9.3); Neutrophils # 9.7 K/mm3 (1.8-7.8); Neutrophils % 72.1 % (37.0-80.0); Platelet Count 414 K/mm3 (142-424); Red Blood Count 3.88 M/mm3 (4.60-6.20); White Blood Count 13.4 K/mm3 (4.8-10.8)
[2018-10-10 06:21] LABS: Anion Gap 9.5 mEq/L (5-15); Potassium 4.5 mmoL/L (3.5-5.1)
--- NOTE | 2018-10-10 07:21 | Progress Note ---
Internal Medicine - PN: Subj *Date: 10/10/18 *Time: 07:19 Interval history: Patient has no complaints. He denies significant pain. He has been ambulating some. The superior part of his Unna boot has rolled down a little bit. Exam Vital signs and Labs for Last 24 Hours: Temp Pulse Resp BP Pulse Ox 98.8 F 76 18 118/80 89 L 10/10/18 04:58 10/10/18 04:58 10/10/18 04:58 10/10/18 04:58 10/10/18 04:58 Laboratory Results - last 24 hr 10/09/18 10:10: Vancomycin Trough 14.3 10/09/18 21:10: POC Glucose 137 H 10/10/18 05:55: WBC 13.4 H, RBC 3.88 L, Hgb 11.6 L, Hct 38.2 L, MCV 98.4 H, MCH 30.0, MCHC 30.5 L, RDW 15.0, Plt Count 414, MPV 7.2 L, Neut % (Auto) 72.1, Lymph % (Auto) 16.8, [place] % (Auto) 6.9, Eos % (Auto) 3.4, Baso % (Auto) 0.9, Neut # (Auto) 9.7 H, Lymph # (Auto) 2.3, [place] # (Auto) 0.9, Eos # (Auto) 0.5 H, Baso # (Auto) 0.1 10/10/18 05:55: Sodium 136, Potassium 4.5, Chloride 99, Carbon Dioxide 32, Anion Gap 9.5, BUN 14, Creatinine 1.09, Estimated Creat Clear 129, Estimated GFR 71, Est GFR ( Amer) 86, Glucose 101, Calcium 9.0 I & O for Last 24 hours: Intake & Output 10/07/18 10/08/18 10/09/18 10/10/18 11:59 11:59 11:59 11:59 Intake Total 2365 / 2365 2220 / 2220 1989 / 1989 1240 / 1240 Output Total 4440 / 4440 5300 / 5300 3700 / 3700 2450 / 2450 Balance -2075 / -2075 -3080 / -3080 -1710 / -1710 -1210 / -1210 Weight 354 lb 3 oz 354 lb 3 oz 254 lb 3 oz 256 lb 8.901 oz Narrative: When I entered the room patient was asleep and certainly appears to have sleep apnea. Lungs are clear to auscultation. Heart has a regular rate and rhythm. The left leg is wrapped in an Unna boot from the mid thigh to the distal foot. There is visible erythema although skin seems less edematous both in the thigh and in the distal foot just beyond the Unna boot. Skin is warm to the touch. There is no tenderness of the leg Assessment and Plan (1) Cellulitis of left lower extremity Current visit: Yes Status: Acute Category: Medical Code(s): L03.116 - Cellulitis of left lower limb (2) Morbid obesity Current visit: Yes Status: Acute Category: Medical Code(s): E66.01 - Morbid (severe) obesity due to excess calories (3) Chronic venous insufficiency Current visit: Yes Status: Acute Category: Medical Code(s): I87.2 - Venous insufficiency (chronic) (peripheral) - Assessment and plan all Dx Assessment and Plan for all problems:: Patient is making slow improvement. White count has decreased slightly. Continue IV antibiotics. Patient will increase his frequency of ambulation today
--- NOTE | 2018-10-11 07:17 | Progress Note ---
Internal Medicine - PN: Subj *Date: 10/11/18 *Time: 07:15 Interval history: Patient has no complaints this morning. He denies pain. He has been ambulating in the hallway with a walker. He is ambulating pain-free. He has not had any fevers or chills. He continues on vancomycin and Zosyn. Exam Vital signs and Labs for Last 24 Hours: Temp Pulse Resp BP Pulse Ox 98.5 F 67 20 100/59 L 94 L 10/11/18 04:00 10/11/18 04:00 10/11/18 04:00 10/11/18 04:00 10/11/18 04:00 I & O for Last 24 hours: Intake & Output 10/08/18 10/09/18 10/10/18 10/11/18 11:59 11:59 11:59 11:59 Intake Total 2220 / 2220 1989 / 1989 1600 / 1600 1380 / 1380 Output Total 5300 / 5300 3700 / 3700 2450 / 2450 3850 / 3850 Balance -3080 / -3080 -1710 / -1710 -850 / -850 -2470 / -2470 Weight 354 lb 3 oz 254 lb 3 oz 256 lb 8.901 oz 354 lb 3 oz Microbiology Reports for the Last 24 Hours: Microbiology 10/05/18 21:17 Blood Blood Culture - Final NO GROWTH AFTER 5 DAYS 10/05/18 21:15 Blood Blood Culture - Final NO GROWTH AFTER 5 DAYS Narrative: Patient is awake and alert. Lower leg still has erythema beginning in the mid anterior thigh although posteriorly it extends up towards the hip. The leg is wrapped in an Unna boot from the mid thigh to the mid foot. There is erythema of the foot and toes. This is also nontender. He has improvement in the amount of edema in the leg as skin is now beginning to appear wrinkled. There is no tenderness along the course of the thigh, calf, foot. Assessment and Plan (1) Cellulitis of left lower extremity Current visit: Yes Status: Acute Category: Medical Code(s): L03.116 - Cellulitis of left lower limb (2) Morbid obesity Current visit: Yes Status: Acute Category: Medical Code(s): E66.01 - Morbid (severe) obesity due to excess calories (3) Chronic venous insufficiency Current visit: Yes Status: Acute Category: Medical Code(s): I87.2 - Venous insufficiency (chronic) (peripheral) - Assessment and plan all Dx Assessment and Plan for all problems:: Clinically patient is improving although erythema is very slow to resolve. Continue vancomycin and Zosyn. Had a long discussion with the patient about his options for treatment. Patient was planning on spending time between [place] and [place], where his daughter lives, to receive infusions. His daughter is a CARDIOTHOR[employer]IC ICU RN. However we explained to him that he must stay somewhere so that his antibiotics can get to him. He will once again discussed with his where they will stay while he is getting his
--- NOTE | 2018-10-11 08:34 | Progress Note ---
Internal Medicine - PN: Subj *Date: 10/11/18 *Time: 08:31 Exam Vital signs and Labs for Last 24 Hours: Temp Pulse Resp BP Pulse Ox 98.7 F 92 H 22 112/64 93 L 10/11/18 08:00 10/11/18 08:00 10/11/18 08:00 10/11/18 08:00 10/11/18 08:00 I & O for Last 24 hours: Intake & Output 10/08/18 10/09/18 10/10/18 10/11/18 23:59 23:59 23:59 23:59 Intake Total 1440 / 1440 2380 / 2380 1500 / 1500 720 / 720 Output Total 4350 / 4350 3600 / 3600 3450 / 3450 1850 / 1850 Balance -2910 / -2910 -1220 / -1220 -1950 / -1950 -1130 / -1130 Weight 160.657 kg 115.298 kg 160.657 kg 160.657 kg Microbiology Reports for the Last 24 Hours: Microbiology 10/05/18 21:17 Blood Blood Culture - Final NO GROWTH AFTER 5 DAYS 10/05/18 21:15 Blood Blood Culture - Final NO GROWTH AFTER 5 DAYS Assessment and Plan (1) Cellulitis of left lower extremity Current visit: Yes Status: Acute Category: Medical Code(s): L03.116 - Cellulitis of left lower limb (2) Morbid obesity Current visit: Yes Status: Acute Category: Medical Code(s): E66.01 - Morb id (severe) obesity due to excess calories (3) Chronic venous insufficiency Current visit: Yes Status: Acute Category: Medical Code(s): I87.2 - Venous insufficiency (chronic) (peripheral) The patient's infection will respond to the chosen ABx?: Yes Is the patient receiving the right drug, dose, and route?: Yes Could a more targeted ABx be ordered?: No
--- NOTE | 2018-10-11 12:45 | Discharge Summary ---
General - General Admission date:: 10/05/18 Discharge date: 10/11/18 HPI HPI: 53-year-old male with history of chronic venous insufficiency and venous stasis with prior cellulitis of the right leg presented to the emergency department with pain, swelling, redness and heat radiating from the left lower leg. 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 Yousif's office as he believes he was developing cellulitis in the left leg. He was placed on oral antibiotics and initial plan had been for the patient follow- up in office yesterday. Due to travel delays patient did not get home until yesterday evening and because of the continued pain, redness, swelling in the left leg he presented to the emergency department. In the emergency department he was diagnosed with a cellulitis of the left leg and foot and has been admitted for IV antibiotics. Patient believes he has had fevers as high as 102 degrees prior to presentation. He has had increasing difficulty ambulating because of the pain in his leg. Hospital Course Hospital Course: Patient was admitted and placed on broad-spectrum antibiotics with vancomycin and Zosyn. It was approximately 72 hours before there was ever any evidence of improvement in patient's cellulitis of the left leg. PT was consulted for placement of an Unna boot. After 72 hours of treatment patient began to feel like there was less pain in the leg. Swelling had also started to improve however erythema remained significant even though it was decreasing. Patient was continued on broad-spectrum antibiotics and increase his activity a little each day. Because of the severity of the cellulitis that involved almost the entire left leg it was felt the patient would need a prolonged course of IV antibiotics. In discussion with the patient the decision was made that he would receive IV antibiotics while he would live with his daughter. Home health and infusion services were arranged and the patient was discharged home to continue vancomycin and Invanz for the next 2 weeks. Discharge instructions are for the patient to follow-up in [address] Galdamez's office. Objective Vital signs: Temp Pulse Resp BP Pulse Ox 98.7 F 92 H 22 112/64 93 L 10/11/18 08:00 10/11/18 08:00 10/11/18 08:00 10/11/18 08:00 10/11/18 08:00 Narrative: Patient is comfortable, alert and oriented to person place and time. Lungs are clear to auscultation. Heart has a regular rate and rhythm. Abdomen is obese. Lower extremity exam reveals erythema starting at the mid anterior thigh and extending all the way down to the foot. Posteriorly erythema does extend to the lateral hip. An Unna boot was in place on the leg from the mid thigh to the foot. At discharge the edema had decreased significantly and patient was developing some wrinkles in the skin. There was no tenderness along the course of the leg DS: Diagnosis - Discharge Diagnosis (1) Cellulitis of left lower extremity Status: Acute (2) Morbid obesity Status: Acute (3) Chronic venous insufficiency Status: Acute Discharge Plan - Patient Discharge Instructions ACTIVITY: Continue current activity DIET: continue same diet Patient Instructions: DI for Cellulitis -- Adult - Follow up Plan Follow up with: Caron Luke APRN [Primary Care Provider] - 1 week Disposition: Home, Self-Fpc Medications: Home Medications Medication Instructions Recorded Confirmed Type Furosemide [Furosemide 40MG tAB] 40 mg PO BID 10/05/18 10/05/18 History Spironolactone 50 mg PO BID 10/05/18 10/05/18 History Prescriptions/Medication Reconciliation: New Ertapenem Sodium [Invanz 1gm Vial] 1 gm IV DAILY 14 Days #14 vial Vancomycin HCl [Vancomycin 1000mg Vial] 3,000 mg IV Q12H 14 Days vial Continue Furosemide [Furosemide 40MG tAB] 40 mg PO BID Spironolactone 50 mg PO BID Discontinued Doxycycline Hyclate [Doxycycline 100mg Capsule] 100 mg PO BID
== END 2018-10-11 13:52 | disposition home health service (06) ==
LOC: 2ND 20:57 → ER 20:57 → 2ND 22:22 → OBSVTOIN 23:25 → 2ND 23:32
PROVIDERS: ADMIT Family Medicine; ATTEND Internal Medicine Adolescent Medicine

== ENCOUNTER 2018-10-28 08:49 | Outpatient (CLI) | payer MEDICAID, SELFPAY ==
[2018-10-28 08:51] VITALS: BMI 56.7
[2018-10-28 09:26] LABS: Basophils # 0.1 K/mm3 (0-0.2); Eosinophils % 11.5 % (0.1-12.0); Hemoglobin 13.1 g/dL (14.1-18.0); Lymphocytes # 2.1 K/mm3 (0.7-4.5); Lymphocytes % 23.3 % (10-50); Mean Corpuscular HGB Conc 31.9 g/dL (31.8-35.4); Mean Corpuscular Hemoglobin 29.9 pg (27.0-31.2); Mean Corpuscular Volume 93.9 fl (80-94); Mean Platelet Volume 7.4 fl (7.4-10.4); Monocytes # 0.5 K/mm3 (0.1-1.0); Monocytes % 5.6 % (1.7-9.3); Neutrophils # 5.3 K/mm3 (1.8-7.8); Neutrophils % 58.6 % (37.0-80.0); Platelet Count 322 K/mm3 (142-424); Red Blood Count 4.36 M/mm3 (4.60-6.20); Red Cell Distribution Width 16.2 % (11.5-17.5); White Blood Count 9.1 K/mm3 (4.8-10.8)
[2018-10-28 09:38] LABS: Alanine Aminotransferase 34 U/L (12-78); Albumin Level 2.8 gm/dL (3.4-5.0); Albumin/Globulin Ratio 0.5 (1.1-1.8); Alkaline Phosphatase 118 U/L (46-116); Anion Gap 13.7 mEq/L (5-15); Aspartate Amino Transferase 22 U/L (15-37); Bilirubin,Total 0.7 mg/dL (0.2-1.0); Blood Urea Nitrogen 16 mg/dL (7-18); C-Reactive Protein 3.7 mg/L (0.0-0.9); Calcium 8.8 mg/dL (8.5-10.1); Carbon Dioxide 29 mmol/L (21.0-32.0); Chloride 97 mmol/L (98-107); Creatinine Clearance Estimated 63 mL/min (50-200); Creatinine,Serum 1.39 mg/dL (0.70-1.30); Estimated Glomerular Filt Rate 53 ml/min (>60); GFR (African American) 65 ML/MIN (>60); Globulin 5.6 gm/dl (1.3-3.2); Glucose 97 mg/dL (74-106); Potassium 3.7 mmoL/L (3.5-5.1); Sodium 136 mmol/L (136-145); Total Protein,Serum 8.4 gm/dL (6.4-8.2)
[2018-10-28 10:11] LABS: Erythrocyte Sedimentation Rate > 120 mm/hr (0-20)
== END 2018-10-28 09:30 | disposition home or self-care (01) ==
LOC: INF 08:49
PROVIDERS: Visit Provider Podiatrist
DX: L03.116 Cellulitis of left lower limb (principal)
CPT/HCPCS: 80053; 85025; 85651; 86140; G0463

== ENCOUNTER → 2019-06-28 11:54 | Outpatient (CLI) | payer MEDICAID, SELFPAY ==
[2019-06-28 14:02] LABS: Alanine Aminotransferase 39 U/L (12-78); Albumin Level 3.3 gm/dL (3.4-5.0); Albumin/Globulin Ratio 0.8 (1.1-1.8); Alkaline Phosphatase 94 U/L (46-116); Anion Gap 13.2 mEq/L (5-15); Aspartate Amino Transferase 29 U/L (15-37); Bilirubin,Total 0.4 mg/dL (0.2-1.0); Blood Urea Nitrogen 20 mg/dL (7-18); Calcium 9.5 mg/dL (8.5-10.1); Carbon Dioxide 31 mmol/L (21.0-32.0); Chloride 102 mmol/L (98-107); Chol/HDL Ratio 3.6 (1-3.5); Cholesterol 206 mg/dL (140-200); Creatinine,Serum 1.19 mg/dL (0.70-1.30); Estimated Glomerular Filt Rate 64 ml/min (>60); GFR (African American) 77 ML/MIN (>60); Globulin 4.2 gm/dl (1.3-3.2); Glucose 77 mg/dL (74-106); HDL Cholesterol 57 mg/dL (27-67); LDL Cholesterol 130 mg/dL (0-130); Potassium 5.2 mmoL/L (3.5-5.1); Sodium 141 mmol/L (136-145); Total Protein,Serum 7.5 gm/dL (6.4-8.2); Triglycerides 95 mg/dL (30-200); VLDL Cholesterol 19 mg/dL (0-40)
[2019-06-28 16:55] LABS: Hemoglobin A1C 5.8 % (0.0-7.0)
== END ==
PROVIDERS: Visit Provider Internal Medicine Adolescent Medicine
DX: E66.01 Morbid (severe) obesity due to excess calories (principal)
CPT/HCPCS: 36415; 80053; 80061; 83036; 83735

== ENCOUNTER 2020-12-19 17:00 | Inpatient (IN) | payer OTHER, SELFPAY ==
[2020-12-19] VITALS (7 sets, daily range): BP systolic 122–157; BP diastolic 63–98; PULSE 68–117; RESP 16–32; TEMP 36.8; O2SAT 65–98; BMI 65.9
--- NOTE | 2020-12-19 17:21 | ECG_ITS ---
APPROVED REPORT Exam: Resting ECG HR:63 bpm ECG Measurements Heart Rate 63 AXES MA 150 P 44 QRSd 82 QRS 57 QT 362 T 53 QTc 370 Conclusion Normal sinus rhythm Left atrial abnormality Borderline ECG Electronically signed by : Beny Yousif, 12/20/2020 05:53:39
--- NOTE | 2020-12-19 17:21 | XR_ITS ---
PROCEDURE: XR CHEST PORTABLE Referring Doctor: Rozina Aki Patient Age:55Y CLINICAL HISTORY: SOB dyspnea. Nonsmoker. . Best images possible. Large patient-and less than optimally cooperative COMPARISON: CR [id number] XR chest portable PICC plac from 10/08/2018 FINDINGS: AP portable upright chest with grid and without grid performed in this large patient. Patient's large size does diminish resolution but appearance is similar to September 2000 although there may be slight additional vascular congestion and cephalization today which may reflect some mild CHF but correlation required. Cardiomegaly noted but no pleural effusions evident on this plain film although the left CP angle is not fully imaged but Slight hazy appearance at the medial right base is nonspecific-it in part reflects anterior fat pad seen previously but given the slight additional hazy ill-defined appearance a could not exclude a minimal early infiltrate but mild CHF could also contribute to this hazy appearance. Miracle and superior mediastinal structures unchanged. No pleural effusion or pneumothorax IMPRESSION: Cardiomegaly. Vascular congestion/suspect mild CHF with accentuation of vascular markings throughout and particularly upper lobes Slight subtle hazy appearance at medial right lung base. Anterior fat pad in part accounts for this density but is difficult to exclude a subtle patchy hazy/wispy infiltrate developing this region currently.. The mild CHF may also contribute to this appearance . Dictated by: Sammy Grover MD 12/19/2020 18:45 Sammy Grover MD in [place] 12/19/2020 18:45
[2020-12-19 17:31] LABS: Adenovirus,PCR Not Detected (NotDetected); Bordetella Pertussis Not Detected (NotDetected); Chlamydophila Pneumoniae, PCR Not Detected (NotDetected); Coronavirus 19, PCR Not Detected (NotDetected); Coronavirus 229E Not Detected (NotDetected); Coronavirus NL63 Not Detected (NotDetected); Coronavirus OC43 Not Detected (NotDetected); Coronovirus HKU1,PCR Not Detected (NotDetected); Human Metapneumovirus Not Detected (NotDetected); Influenza A, PCR Not Detected (NotDetected); Influenza AH1, 2009 Not Detected (NotDetected); Influenza AH1, PCR Not Detected (NotDetected); Influenza AH3,PCR Not Detected (NotDetected); Influenza B, PCR Not Detected (NotDetected); Mycoplasma Pneumoniae, PCR Not Detected (NotDetected); Parainfluenza 1, PCR Not Detected (NotDetected); Parainfluenza 2, PCR Not Detected (NotDetected); Parainfluenza 3, PCR Not Detected (NotDetected); Parainfluenza 4, PCR Not Detected (NotDetected); Respiratory Syncytial Virus Not Detected (NotDetected); Rhinovirus/Enterovirus Not Detected (NotDetected)
--- NOTE | 2020-12-19 17:31 | PC.NURSE ---
PT REFUSED BLOOD GAS
[2020-12-19 17:41] LABS: Basophils # 0.1 K/mm3 (0-0.2); Basophils % 0.7 % (0.1-2.0); Eosinophils # 0.2 K/mm3 (0.0-0.4); Eosinophils % 1.2 % (0.1-12.0); Hematocrit 46.3 % (42.0-52.0); Hemoglobin 14.2 g/dL (14.1-18.0); Lymphocytes # 1.7 K/mm3 (0.7-4.5); Lymphocytes % 12.9 % (10-50); Mean Corpuscular HGB Conc 30.7 g/dL (31.8-35.4); Mean Corpuscular Hemoglobin 29.3 pg (27.0-31.2); Mean Corpuscular Volume 95.2 fl (80-94); Mean Platelet Volume 8.4 fl (7.4-10.4); Monocytes # 1.1 K/mm3 (0.1-1.0); Monocytes % 8.4 % (1.7-9.3); Neutrophils # 10.3 K/mm3 (1.8-7.8); Neutrophils % 76.7 % (37.0-80.0); Platelet Count 286 K/mm3 (142-424); Red Blood Count 4.86 M/mm3 (4.60-6.20); White Blood Count 13.5 K/mm3 (4.8-10.8)
[2020-12-19 17:46] LABS: Chloride 96 mmol/L (98-107); Potassium 4.7 mmoL/L (3.5-5.1); Sodium 138 mmol/L (136-145)
[2020-12-19 17:49] LABS: Alanine Aminotransferase 27 U/L (12-78); Albumin Level 3.9 g/dl (3.5-5.0); Alkaline Phosphatase 107 U/L (38-126); Anion Gap 8.7 mEq/L (5-15); Aspartate Amino Transferase 32 U/L (17-59); Bilirubin,Total 0.8 mg/dl (0.2-1.3); Blood Urea Nitrogen 23 mg/dl (9-20); Calcium 9.1 mg/dl (8.4-10.2); Carbon Dioxide 38 mmol/L (22.0-30.0); Creatinine Clearance Estimated 86 mL/min (50-200); Estimated Glomerular Filt Rate 78 ml/min (>60); GFR (African American) 94 ML/MIN (>60); Glucose 116 mg/dl (74-100); Total Protein,Serum 7.9 g/dl (6.3-8.2)
--- NOTE | 2020-12-19 17:56 | HMH.EDGENADL ---
ED Disposition Clinical Impression: Sinus bradycardia Respiratory failure with hypoxia Qualifiers: Chronicity: acute Qualified Code(s): J96.01 - Acute respiratory failure with hypoxia Disposition: Admitted As Inpatient Condition on Discharge: Serious Referrals: Rafael Galdamez MD [Primary Care Provider] - - Critical Care Critical Care Time: Yes Attestation: On 12/19/20, the high probability of a clinically significant, sudden or life threatening deterioration of the following system(s) required my full and direct attention, intervention and personal management. The time I documented below is in addition to time spent performing reported procedures but includes the following listed in this critical care notation. Vital system(s) involved:: Respiratory Failure My critical care processes included: Assessment & monitoring of V/S, Initial and Re-exams, Data Review/Interpretation, Coordinating Care, Medication Orders and management, Documentation Medical Decision Making - Sajan Inquiry Pt receiving controlled substance: No Vital Signs: 12/19/20 17:02 12/19/20 17:31 12/19/20 18:00 Temperature 98.2 F Temperature Source Oral Pulse Rate [Radial] 117 H 71 79 Respiratory Rate 32 H Blood Pressure [Right Arm] 157/98 H 122/63 131/81 Blood Pressure Mean [Right Arm] 117 82 97 Blood Pressure Source [Right Arm] Blood Pressure Position [Right Arm] Sitting Sitting Sitting 02 Sat by Pulse Oximetry 65 L Oxygen Delivery Method Room Air Oxygen Flow Rate (LPM) 12/19/20 18:32 12/19/20 18:34 Temperature Temperature Source Pulse Rate [Radial] 74 68 Respiratory Rate 18 16 Blood Pressure [Right Arm] 148/80 H 148/80 H Blood Pressure Mean [Right Arm] 102 102 Blood Pressure Source [Right Arm] Automatic Cuff Automatic Cuff Blood Pressure Position [Right Arm] Sitting Sitting 02 Sat by Pulse Oximetry 93 L 98 Oxygen Delivery Method Nasal Cannula Room Air Oxygen Flow Rate (LPM) 2 - Lab Data Lab Results 12/19/20 17:15: WBC 13.5 H, RBC 4.86, Hgb 14.2, Hct 46.3, MCV 95.2 H, MCH 29.3, MCHC 30.7 L, RDW 16.0, Plt Count 286, MPV 8.4, Neut % (Auto) 76.7, Lymph % (Auto) 12.9, [place] % (Auto) 8.4, Eos % (Auto) 1.2, Baso % (Auto) 0.7, Neut # (Auto) 10.3 H, Lymph # (Auto) 1.7, [place] # (Auto) 1.1 H, Eos # (Auto) 0.2, Baso # (Auto) 0.1 12/19/20 17:15: Sodium 138, Potassium 4.7, Chloride 96 L, Carbon Dioxide 38 H, Anion Gap 8.7, BUN 23 H, Creatinine 1.00, Estimated Creat Clear 86, Estimated GFR 78, Est GFR ( Amer) 94, Glucose 116 H, Calcium 9.1, Total Bilirubin 0.8, AST 32, ALT 27, Alkaline Phosphatase 107, Troponin I < 0.01, Total Protein 7.9, Albumin 3.9, Globulin 4.0 H, Albumin/Globulin Ratio 1.0 L 12/19/20 17:15: NT-Pro-B Natriuret Pep 443 H 12/19/20 17:15: D-Dimer 1.16 H 12/19/20 17:15: Lactate 1.1 12/19/20 17:20: Chlamy pneumoniae PCR Not detected, Adenovirus (PCR) Not detected, B. pertussis DNA (PCR) Not detected, Coronavirus OC43 (PCR) Not detected, Coronavirus HKU1 (PCR) Not detected, Coronavirus 229E (PCR) Not detected, SARS-CoV-2 (PCR) Not detected, Coronavirus NL63 (PCR) Not detected, Human Metapneumovir PCR Not detected, Influenza A (H1) PCR Not detected, Influ A (H1N1/09) PCR Not detected, Influenza A (H3) PCR Not detected, Influenza Type A (PCR) Not detected, Influenza Type B (PCR) Not detected, M. pneumoniae (PCR) Not detected, Parainfluenza 1 (PCR) Not detected, Parainfluenza 2 (PCR) Not detected, Parainfluenza 3 (PCR) Not detected, Parainfluenza 4 (PCR) Not detected, RSV (PCR) Not detected, Entero/Rhino (PCR) Not detected Result diagrams: 12/19/20 17:15 12/19/20 17:15 Orders (Tests/Meds): ED MEDICATIONS Generic Name Dose Route Start Last Admin Trade Name Freq PRN Reason Stop Dose Admin Ceftriaxone Sodium 1 gm/ 50 mls @ 100 mls/hr 12/19/20 19:45 12/19/20 19:36 Sodium Chloride IV 01/02/21 19:44 100 mls/hr Q24H MARTINEZ Administration Protocol Azithromycin 500 mg/ Sodium 250 mls @ 250 mls/hr 01
[2020-12-19 17:58] LABS: NT Pro Brain Natriuretic Pep. 443 pg/mL (0-125)
[2020-12-19 18:09] LABS: Troponin I < 0.01 ng/ml (0.00-0.034)
[2020-12-19 19:10] LABS: D-Dimer 1.16 ug/mL (0.0-0.5)
--- NOTE | 2020-12-19 19:34 | PC.NURSE ---
Dr Cruz paged
[2020-12-19 19:49] LABS: Lactic Acid 1.1 mmol/L (0.7-2.1)
--- NOTE | 2020-12-19 20:01 | PC.NURSE ---
called for bed assignment
[2020-12-19 20:05] LABS: Procalcitonin 0.148 ng/mL (0.0-2.0)
[2020-12-19 20:33] LABS: Coronavirus 19 IgG Antibody Negative (Negative); Coronavirus 19 IgM Antibody Negative (Negative)
[2020-12-19 21:11] LABS: Troponin I < 0.01 ng/ml (0.00-0.034)
--- NOTE | 2020-12-19 23:35 | PC.NURSE ---
patient up to floor via wheelchair.
[2020-12-19 23:56] LABS: Troponin I < 0.01 ng/ml (0.00-0.034)
[2020-12-20 00:10] VITALS: O2SAT 95
[2020-12-20 04:00] VITALS: BP 104/64; PULSE 90; RESP 18; TEMP 37.1; O2SAT 75
--- NOTE | 2020-12-20 05:15 | PC.NURSE ---
Notified ZACK Nuñez of oxygen saturation of 75% on 3L. Patient was first found without wearing oxygen when entered room for vital sign check. Asked patient to put on oxygen back on and he complied.
--- NOTE | 2020-12-20 07:00 | CA_ITS ---
APPROVED REPORT Bilateral Lower Extremity Venous Study for DVT. [facility]: DEMETRA Indications Lower Extremity Edema: Bilateral Shortness of breath soa, elev d dimer Risk Factors Immobility Obesity Morbid obesity 460lbs. Limited scanning due to body habitus Vein Imaging CFV (R): Not Visualized FEM (R): compressive, spontaneous, phasic, augmentation POP (R): compressive, spontaneous, phasic, augmentation PTV (R): Compressible GSV (R): compressive, spontaneous, phasic, augmentation SSV (R): Not Visualized Peroneals (R):Not Visualized GAS (R): Compressible CFV (L): Not Visualized FEM (L): compressive, spontaneous, phasic, augmentation POP (L): compressive, spontaneous, phasic, augmentation PTV (L): Compressible GSV (L): compressive, spontaneous, phasic, augmentation SSV (L): Not Visualized Peroneals (L):Not Visualized GAS (L): Compressible Findings No evidence of DVT or superficial thrombophlebitis in the veins scanned of the right lower extremity. No evidence of DVT or superficial thrombophlebitis in the veins scanned of the left lower extremity. Limited venous dopplers secondary to body habitus. Conclusion No evidence of DVT or superficial thrombophlebitis in the veins scanned of the right lower extremity. No evidence of DVT or superficial thrombophlebitis in the veins scanned of the left lower extremity. Limited venous dopplers secondary to body habitus. Electronically signed by : Evaristo Schwartz MD 12/20/2020 16:03:55
[2020-12-20 07:10] LABS: Anion Gap 10.6 mEq/L (5-15); Blood Urea Nitrogen 21 mg/dl (9-20); Calcium 8.7 mg/dl (8.4-10.2); Carbon Dioxide 39 mmol/L (22.0-30.0); Chloride 94 mmol/L (98-107); Creatinine Clearance Estimated 86 mL/min (50-200); Estimated Glomerular Filt Rate 78 ml/min (>60); GFR (African American) 94 ML/MIN (>60); Glucose 114 mg/dl (74-100); Potassium 4.6 mmoL/L (3.5-5.1); Sodium 139 mmol/L (136-145)
--- NOTE | 2020-12-20 07:28 | HMH.PHAVTE ---
[facility] Pharmacy VTE Monitoring - Patient Demographics Admission date: 12/19/20 Report Date: 12/20/20 Time: 07:28 Allergies/Adverse Reactions: Patient Allergies grass pollen Allergy (Severe, Verified 10/28/18 08:13) Sneezing Height: 1.78 m Weight: 208.652 kg Patient Problems: Current Active Problems Respiratory failure with hypoxia (Acute) Sinus bradycardia (Acute) - VTE Risk Labs: VTE Related Lab Results Hgb 14.2 g/dL (14.1-18.0) 12/19/20 17:15 Hct 46.3 % (42.0-52.0) 12/19/20 17:15 Plt Count 286 K/mm3 (142-424) 12/19/20 17:15 BUN 21 mg/dl (9-20) H 12/20/20 06:34 Creatinine 1.00 mg/dl (0.66-1.25) 12/20/20 06:34 Estimated Creat Clear 86 mL/min (50-200) 12/20/20 06:34 VTE Score: 4 VTE Risk Level: Low Risk - Prophylaxis VTE Prophylaxis Ordered?: Yes Types of VTE Prophylaxis: TEDS Knee High, Pharmacological Location of Applied Device: Bilateral Lower Extremeties Pharmacologic Type: Enoxaparin
--- NOTE | 2020-12-20 07:29 | HMH.PHAINT ---
MEDICATION RECONCILIATION COMPLETED ON PATIENT USING EXTERNAL FILL HISTORY FROM PHARMACY. -HATTIE GALARZA, FARRAHD
--- NOTE | 2020-12-20 07:45 | PC.NURSE ---
unable to obtain weight . nurse aware
[2020-12-20 08:00] VITALS: BP 98/66; PULSE 103; RESP 24; TEMP 36.9; O2SAT 92
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
--- NOTE | 2020-12-20 08:50 | PC.NURSE ---
Pt is A&Ox4 and has ambulated to the BR and in room a few times this shift and tolerated well. Pt has denied any pain. Diminished, rhonchi, and wheezes noted on lung assessment. Pt sats were 93-95% on 3LPM NC and he tolerated well. Pt was found to have taken off his O2 while asleep and desat to 75%. NC replaced but sat did not increase. Pt was having episodes of apnea, although he denies any h/o [place], and increased O2 without positive effect. Pt was then placed on venti mask and was able to sat 90% on 35%. Pt placed back onto 3LPM NC for breakfast. open ucer area noted to anterior LLE, pictures obtained, ABD pad palced over wound and pt's own TEDS sock pulled over wound at pt's request. Call light within reach.
[2020-12-20 09:00] VITALS: O2SAT 85
--- NOTE | 2020-12-20 09:37 | PC.WOUNDNOTE ---
Wound Location: LLE, anterior Length: 12cm Width: 6cm Inflammation/swelling Y/N: YES Pain and/or tenderness Y/N: NO Exudate: Serous Color: Clear Yellow Amount: Scant Odor Y/N: YES
[2020-12-20 09:43] LABS: Activated Partial Thrombo Time 28.1 seconds (23.6-34.0)
[2020-12-20 15:33] VITALS: BMI 65.9
--- NOTE | 2020-12-20 15:46 | HMH.PHAHEP ---
[facility] Pharmacy Heparin Dosing - Demographic Data Admission date:: 12/20/20 Date: 12/20/20 Time: 09:30 Allergies/Adverse Reactions: Allergies Allergy/AdvReac Type Severity Reaction Status Date / Time grass pollen Allergy Severe Sneezing Verified 10/28/18 08:13 Height: 1.78 m Weight: 208 kg - Indication Medication therapy:: Heparin Patient Problems: Current Active Problems Morbid obesity (Chronic) Respiratory failure with hypoxia (Acute) Sinus bradycardia (Acute) SOB (shortness of breath) (Acute) CVA?: No Bleeding problem?: No Kidney disease?: No [place]?: No Desired PTT range:: 60-80 seconds - Labs Anticoagulation Lab Results:: 12/19/20 17:15 Hgb 14.2 Hct 46.3 Plt Count 286 - Monitoring Dose Monitor 1 Date: 12/20/20 Time: 09:20 PTT Result:: 28.1 Infusion Rate:: HEPARIN 5000 UNIT BOLUS, 1300 UNITS/HR Dose Monitor 2 Date: 12/20/20 Time: 12:00 PTT Result:: 37.0 Infusion Rate:: REBOLUS WITH HEPARIN 5000 UNITS, 2000 UNITS/HR Dose Monitor 3 Date: 12/20/20 Time: 15:30 PTT Result:: 50.6 Infusion Rate:: heparin 2200 units/hr Dose Monitor 4 Date: 12/20/20 Time: 18:28 PTT Result:: 40.9 Infusion Rate:: heparin 2600 units/hr, rebolus 3000 units Dose Monitor 5 Date: 12/21/20 Time: 02:00 PTT Result:: 52.9 Infusion Rate:: heparin 2700 units/hr Dose Monitor 6 Date: 12/21/20 Time: 09:52 PTT Result:: 46.7 Infusion Rate:: heparin 3000 units/hr, rebolus 3000 units Dose Monitor 7 Date: 12/21/20 Time: 16:00 PTT Result:: 64.1 Infusion Rate:: heparin 3000 units/hr Dose Monitor 8 Date: 12/22/20 Time: 22:10 PTT Result:: 58.2 Infusion Rate:: 3100 units/hr Dose Monitor 9 Date: 12/22/20 Time: 05:20 PTT Result:: 61.8 Infusion Rate:: 3200 units/hr Dose Monitor 10 Date: 12/22/20 Time: 12:00 PTT Result:: 72.3 Infusion Rate:: 3200 units/hr Dose Monitor 11 Date: 12/22/20 Time: 16:00 PTT Result:: 73.7 Infusion Rate:: HEPARIN DOSE WAS STOPPED BY SHORTLY AFTER THIS PTT. CT CHEST NO EVIDENCE OF PE. - Core Measures Is INR > or = 2 at discharge?: No Most Recent Labs:: Laboratory Results - last 24 hr 12/19/20 17:15: WBC 13.5 H, RBC 4.86, Hgb 14.2, Hct 46.3, MCV 95.2 H, MCH 29.3, MCHC 30.7 L, RDW 16.0, Plt Count 286, MPV 8.4, Neut % (Auto) 76.7, Lymph % (Auto) 12.9, [place] % (Auto) 8.4, Eos % (Auto) 1.2, Baso % (Auto) 0.7, Neut # (Auto) 10.3 H, Lymph # (Auto) 1.7, [place] # (Auto) 1.1 H, Eos # (Auto) 0.2, Baso # (Auto) 0.1 12/19/20 17:15: Sodium 138, Potassium 4.7, Chloride 96 L, Carbon Dioxide 38 H, Anion Gap 8.7, BUN 23 H, Creatinine 1.00, Estimated Creat Clear 86, Estimated GFR 78, Est GFR ( Amer) 94, Glucose 116 H, Calcium 9.1, Total Bilirubin 0.8, AST 32, ALT 27, Alkaline Phosphatase 107, Troponin I < 0.01, Total Protein 7.9, Albumin 3.9, Globulin 4.0 H, Albumin/Globulin Ratio 1.0 L 12/19/20 17:15: NT-Pro-B Natriuret Pep 443 H 12/19/20 17:15: D-Dimer 1.16 H 12/19/20 17:15: Lactate 1.1 12/19/20 17:15: Procalcitonin 0.148 12/19/20 17:15: SARS-CoV-2 IgG Ab (Rapid) Negative, SARS-CoV-2 IgM Ab (Rapid) Negative 12/19/20 17:20: Chlamy pneumoniae PCR Not detected, Adenovirus (PCR) Not detected, B. pertussis DNA (PCR) Not detected, Coronavirus OC43 (PCR) Not detected, Coronavirus HKU1 (PCR) Not detected, Coronavirus 229E (PCR) Not detected, SARS-CoV-2 (PCR) Not detected, Coronavirus NL63 (PCR) Not detected, Human Metapneumovir PCR Not detected, Influenza A (H1) PCR Not detected, Influ A (H1N1/09) PCR Not detected, Influenza A (H3) PCR Not detected, Influenza Type A (PCR) Not detected, Influenza Type B (PCR) Not detected, M. pneumoniae (PCR) Not detected, Parainfluenza 1 (PCR) Not detected, Parainfluenza 2 (PCR) Not detected, Parainfluenza 3 (PCR) Not detected, Parainfluenza 4 (PCR) Not detected, RSV (PCR) Not detected, Entero/Rhino (PCR) Not detected 12/19/20 20:
[2020-12-20 16:00] VITALS: BP 122/76; PULSE 63; RESP 24; TEMP 36.7; O2SAT 96
[2020-12-20 16:15] LABS: Activated Partial Thrombo Time 50.6 seconds (23.6-34.0)
--- NOTE | 2020-12-20 18:00 | PC.NURSE ---
Pt has been pleasant and somewhat cooperative this shift. A&O X4. No complaints of pain or SOA. Pt refuses ABG's. Pt also refuses to wear a NC. Pt is currently wearing a venti-mask with sats. >90%. Room air sat. noted to be 85%. Lung sounds reveal expiratory wheezes. 2+ pitting edema noted to extremities. Ulceration noted to anterior LT calf, covered with Telfa/Tegaderm. Pt ambulates independently throughout the room and uses the urinal to void clear, yellow urine without issue. No BM this shift. Heparin is currently infusing @ 44 ML/HR with rate managed per Pharmacy. Appetite is good and pt eats the majority of all meals. VSS. Call light within reach. Will continue to monitor.
[2020-12-20 19:21] LABS: Activated Partial Thrombo Time 40.9 seconds (23.6-34.0)
[2020-12-20 20:00] VITALS: BP 115/72; PULSE 82; RESP 22; TEMP 36.8; O2SAT 96
[2020-12-21 02:48] LABS: Activated Partial Thrombo Time 52.9 seconds (23.6-34.0)
[2020-12-21 04:00] VITALS: BP 125/69; PULSE 89; RESP 22; TEMP 36.4; O2SAT 93
--- NOTE | 2020-12-21 05:03 | PC.NURSE ---
Pt has rested in intervals this shift, Pt os A&O x4, BLT lungs with expiratory wheezing, Bowel sounds present in all 4 quadrants, Pt on 3L venti mask. Pt IV infusing well, Pt denies, SOA, headache, n/v. Pt has +2 pitting edema in BLE, Stage 2 ulcer on Lt pandey. Pt voids per urinal
[2020-12-21 05:20] VITALS: BMI 65.6
--- NOTE | 2020-12-21 06:41 | HMH.ACPN2 ---
Internal Medicine - PN: Subj *Date: 12/21/20 *Time: 15:10 Interval history: Mr. Malhotra remained stable on 35% Ventimask. Denies any chest pain, nausea or vomiting. Has been afebrile overnight. Shortness of breath still present however when he takes his oxygen off. Desats to high 70s low 80s off of supplemental oxygen. Responds quite well with the Ventimask being placed back on however. Reviewed patient's reports from yesterday, lower extremity duplex negative for DVTs. Discussion this morning with patient about his body habitus and its limiting nature to our further assessments of why he has an acute oxygen requirement. He is unable to fit in our CT scanner and we are unable to perform a V/Q scan due to his body habitus. Discussed the need to transfer for further assessment, patient is open to this. at bedside, updated on plan. Exam Vital signs and Labs for Last 24 Hours: Temp Pulse Resp BP Pulse Ox 97.6 F 89 22 125/69 93 L 12/21/20 04:00 12/21/20 04:00 12/21/20 04:00 12/21/20 04:00 12/21/20 04:00 Laboratory Results - last 24 hr 12/20/20 06:34: Sodium 139, Potassium 4.6, Chloride 94 L, Carbon Dioxide 39 H, Anion Gap 10.6, BUN 21 H, Creatinine 1.00, Estimated Creat Clear 86, Estimated GFR 78, Est GFR ( Amer) 94, Glucose 114 H, Calcium 8.7 12/20/20 09:20: APTT 28.1 12/20/20 12:32: APTT 37.0 H D 12/20/20 15:30: APTT 50.6 H* D 12/20/20 18:25: APTT 40.9 H D 12/21/20 02:00: APTT 52.9 H* D I & O for Last 24 hours: Intake & Output 12/18/20 12/19/20 12/20/20 12/21/20 23:59 23:59 23:59 23:59 Intake Total 1602 / 1962 360 / 360 Output Total 2875 / 2875 500 / 500 Balance -1273 / -913 -140 / -140 Weight 208.652 kg 208 kg 207.936 kg - Constitutional mild distress, morbidly obese Comments: Sitting naked in bed - *Routine HEENT Exam Head: Present: normocephalic Eye: Present: EOMI, PERRL ENT: Present: mucous membranes moist - *Routine Neck Exam Present: supple. Absent: lymphadenopathy - *Routine Respiratory Exam Present: distant breath sounds, diminished air movement. Absent: wheezes, crackles - *Routine Cardiovascular Exam Present: RRR - *Routine Abdominal Exam Present: soft, normoactive bowel sounds. Absent: tenderness Comments: morbidly obese, large pannus to knees, edematous - *Routine Extremities Exam Present: edema Comments: Chronic stasis changes bilateral lower extremities, dense edema - *Routine Skin Exam Present: warm. Absent: rash - *Routine Neurological Exam Present: alert, oriented X3 Assessment and Plan (1) Respiratory failure with hypoxia Status: Acute Qualifiers: Chronicity: acute Qualified Code(s): J96.01 - Acute respiratory failure with hypoxia Category: Medical Code(s): J96.91 - Respiratory failure, unspecified with hypoxia (2) Sinus bradycardia Status: Acute Category: Medical Code(s): R00.1 - Bradycardia, unspecified (3) Morbid obesity Status: Acute Category: Medical Code(s): E66.01 - Morbid (severe) obesity due to excess calories (4) SOB (shortness of breath) Status: Acute Category: Medical Code(s): R06.02 - Shortness of breath - Assessment and plan all Dx Assessment and Plan for all problems:: 55-year-old male morbidly obese, exam and therapy limited by body habitus. Presented with new oxygen requirement. Chest x-ray unconvincing for pneumonia. Currently on antibiotics and heparin drip however as clinical concern for pulmonary emboli currently exists. Duplex bilateral lower extremity negative. Unable to perform V/Q scan or CTA of chest given girth of patient's abdomen and has extreme weight. Consulted [facility] for transfer for further work-up and management due to patient's obesity. Patient was accepted to for further management, pending bed availability. Continue current diet, heparin drip, daily diuresis, antibiotics. Continue supplemental oxygen requirement at this time. [place]
[2020-12-21 07:18] LABS: Basophils # 0.1 K/mm3 (0-0.2); Basophils % 0.6 % (0.1-2.0); Eosinophils # 0.4 K/mm3 (0.0-0.4); Eosinophils % 3.5 % (0.1-12.0); Hematocrit 43.9 % (42.0-52.0); Hemoglobin 13.8 g/dL (14.1-18.0); Lymphocytes # 1.8 K/mm3 (0.7-4.5); Lymphocytes % 17.2 % (10-50); Mean Corpuscular HGB Conc 31.3 g/dL (31.8-35.4); Mean Corpuscular Volume 95.6 fl (80-94); Mean Platelet Volume 8.2 fl (7.4-10.4); Monocytes # 0.9 K/mm3 (0.1-1.0); Monocytes % 8.2 % (1.7-9.3); Neutrophils # 7.5 K/mm3 (1.8-7.8); Neutrophils % 70.4 % (37.0-80.0); Platelet Count 250 K/mm3 (142-424); Red Blood Count 4.59 M/mm3 (4.60-6.20); Red Cell Distribution Width 16.2 % (11.5-17.5); White Blood Count 10.7 K/mm3 (4.8-10.8)
[2020-12-21 07:24] LABS: Chloride 95 mmol/L (98-107)
[2020-12-21 07:25] LABS: Potassium 5.3 mmoL/L (3.5-5.1); Sodium 135 mmol/L (136-145)
[2020-12-21 07:28] LABS: Anion Gap 13.3 mEq/L (5-15); Blood Urea Nitrogen 19 mg/dl (9-20); Calcium 8.9 mg/dl (8.4-10.2); Carbon Dioxide 32 mmol/L (22.0-30.0); Creatinine Clearance Estimated 108 mL/min (50-200); Estimated Glomerular Filt Rate 100 ml/min (>60); GFR (African American) 121 ML/MIN (>60); Glucose 113 mg/dl (74-100)
[2020-12-21 08:00] VITALS: BP 129/65; PULSE 104; RESP 24; TEMP 37.1; O2SAT 88
[2020-12-21 10:56] LABS: Activated Partial Thrombo Time 46.7 seconds (23.6-34.0)
--- NOTE | 2020-12-21 14:06 | CA_ITS ---
APPROVED REPORT EXAM: Comprehensive 2D, Doppler, and color-flow Echocardiogram Computer Network Engineer: Arlet Quiñonez RT(R) Ht: 5 ft 10 in Wt: 458lbs BSA: 2.97 BP: 145/89 mmHg Indications: CHF, bradycardia, SOB, morbid obesity, resp. failure Echo Enhancing Agent Indication: Endocardial border delineation Agent(s) / Amount(s) Used: Definity 2 cc 2D Dimensions LVOT 2.15 cm (M/F) 1.5-2.5 M-Mode Dimensions RVDd 3.39 cm (0.9-2.6) LA Diam 5.29 cm (1.9-4.0) LVDd 4.77 cm (3.5-5.7) Ao Diam 2.56 cm (2.0-3.7) LVDs 3.39 cm (3.5-5.7) IVSd 1.11 cm (0.6-1.1) PWd 1.52 cm (0.6-1.1) EF (Teich) 55.60% FS 28.90% EDV (Teich) 106.00 mL ESV (Teich) 47.10 mL Tricuspid Valve TR P. Velocity 160.00 cm/s RAP Estimate 15.00 mmHg RVSP 25.20 mmHg Left Ventricle Technically very difficult study because of the patient fact in poor acoustic windows, despite the use of Definity contrast endocardial surfaces are poorly visualized. Left atrium is mildly enlarged, left ventricle is normal size, mild concentric left ventricular hypertrophy probably preserved left ventricular systolic function, visually estimated ejection fraction 55% with no obvious regional wall motion abnormality in the obtained views. Diastolic parameters are inconclusive. Right Ventricle Right atrium appears to be mildly enlarged with normal contractility. Aortic Valve Aortic valve is not well visualized. Mitral Valve Mitral valve appears to be grossly normal, there is mild mitral regurgitation. Tricuspid Valve Tricuspid valve is poorly visualized. Pulmonic Valve Pulmonic valve is poorly visualized. Great Vessels Aortic root is normal size. Pericardium No significant pericardial effusion noted Conclusion 1. Technically very difficult study because of the patient factors and poor acoustic windows, despite Definity contrast endocardial surfaces are poorly visualized. Normal left ventricular size, mild concentric left ventricular hypertrophy, probably preserved left ventricular systolic function visually estimated ejection fraction 55% with no obvious regional wall motion abnormality in the obtained views. 2. No significant pericardial effusion noted. 3. Right-sided chambers are mildly enlarged with normal contractility. 4. Valvular structures are poorly visualized. Electronically signed by : Todd Perrin, 12/22/2020 06:13:12
[2020-12-21 16:00] VITALS: BP 122/76; PULSE 79; RESP 18; TEMP 36.8; O2SAT 98
[2020-12-21 16:31] LABS: Activated Partial Thrombo Time 64.1 seconds (23.6-34.0)
--- NOTE | 2020-12-21 17:24 | PC.NURSE ---
1645 RN reassessment completed, no changes noted from previous assessment. Pt has been accepted as a pt at [facility] and is waiting on a bed. Pt is aware of this and agreeable with POC. Heparin drip continues at 60 ml/hr at this time per pharmacy dosing. IV infusing without any difficulty. Pt has wore venturi mask on 3 L this shift with no c/o SOA. VSS. Bed locked and in lowest position, side rails up x2, will continue to monitor.
--- NOTE | 2020-12-21 19:07 | PC.NURSE ---
1900 Pt is aware that additional IV is required for IV abx and heparin drip. RN attempted to place 22 in left hand. Immediately when needle piercedf skin pt began screaming stop, stop! When I say stop you stop! Needle was immediately removed, no dsg required, no bleeding noted. Will pass along to night warehouse manager nurse.
[2020-12-21 20:00] VITALS: BP 154/69; PULSE 93; RESP 18; RESP 20; TEMP 36.9; O2SAT 94
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
[2020-12-21 22:44] LABS: Activated Partial Thrombo Time 58.2 seconds (23.6-34.0)
--- NOTE | 2020-12-22 00:12 | PC.NURSE ---
2247 Golden Shelton the concrete form setter pharmacist informed us to increase heparin from 60 to 62 mL/hr
--- NOTE | 2020-12-22 03:42 | PC.NURSE ---
All care and documentation for this patient provided by Karthik hernandez RN, was under the direct supervision of Dannie Vanegas RN
[2020-12-22 04:00] VITALS: BP 143/74; PULSE 99; RESP 20; TEMP 36.4; O2SAT 91; BMI 65.9
--- NOTE | 2020-12-22 05:47 | PC.NURSE ---
shift summary pts lung sounds are clear with some coarse crackles. pts sat maintained above 90% with venturi mask on 8 lpm, but when the pt stands or tries to walk to his chair he gets very short of breath and his sats drop to 78-84% but recover in less then 5 minutes. pt uses bed side urinal,urine is clear and yellow in color. pt is A/O X4 and denies any pain, nausea, vomiting, or diarrhea.
[2020-12-22 06:51] LABS: Chloride 96 mmol/L (98-107); Sodium 138 mmol/L (136-145)
[2020-12-22 06:52] LABS: Potassium 4.4 mmoL/L (3.5-5.1)
[2020-12-22 06:54] LABS: Alanine Aminotransferase 23 U/L (12-78); Alkaline Phosphatase 101 U/L (38-126); Aspartate Amino Transferase 35 U/L (17-59); Bilirubin,Total 0.5 mg/dl (0.2-1.3); Blood Urea Nitrogen 15 mg/dl (9-20); Creatinine Clearance Estimated 96 mL/min (50-200); Estimated Glomerular Filt Rate 88 ml/min (>60); GFR (African American) 106 ML/MIN (>60)
[2020-12-22 06:55] LABS: Albumin Level 3.8 g/dl (3.5-5.0); Calcium 9.3 mg/dl (8.4-10.2); Globulin 3.9 g/dL (1.3-3.2); Glucose 121 mg/dl (74-100); Magnesium 2.1 mg/dl (1.6-2.3); Total Protein,Serum 7.7 g/dl (6.3-8.2)
[2020-12-22 06:58] LABS: Basophils # 0.1 K/mm3 (0-0.2); Basophils % 1.1 % (0.1-2.0); Eosinophils # 0.4 K/mm3 (0.0-0.4); Eosinophils % 4.2 % (0.1-12.0); Hemoglobin 13.6 g/dL (14.1-18.0); Lymphocytes # 1.9 K/mm3 (0.7-4.5); Lymphocytes % 18.1 % (10-50); Mean Corpuscular HGB Conc 30.9 g/dL (31.8-35.4); Mean Corpuscular Hemoglobin 29.7 pg (27.0-31.2); Mean Corpuscular Volume 96.2 fl (80-94); Mean Platelet Volume 8.7 fl (7.4-10.4); Monocytes # 0.9 K/mm3 (0.1-1.0); Monocytes % 8.5 % (1.7-9.3); Platelet Count 301 K/mm3 (142-424); Red Blood Count 4.58 M/mm3 (4.60-6.20); Red Cell Distribution Width 16.4 % (11.5-17.5); White Blood Count 10.3 K/mm3 (4.8-10.8)
[2020-12-22 07:02] LABS: Anion Gap 8.4 mEq/L (5-15); Carbon Dioxide 38 mmol/L (22.0-30.0)
[2020-12-22 07:28] LABS: INR 1.11 (0.9-1.1); Prothrombin Time 12.1 seconds (9.4-11.8)
[2020-12-22 07:30] LABS: Activated Partial Thrombo Time 61.8 seconds (23.6-34.0)
[2020-12-22 08:00] VITALS: BP 117/86; PULSE 94; RESP 24; TEMP 36.8; O2SAT 94
--- NOTE | 2020-12-22 08:40 | P.PN_ITS ---
Internal Medicine - PN: Subj *Date: 12/22/20 *Time: 08:40 Interval history: Notes from yesterday reviewed, patient has been accepted by [facility] for scanning on an appropriate bariatric device, but no beds are available at this point. Patient is comfortable, on oxygen with acceptable O2 saturations. Exam Vital signs and Labs for Last 24 Hours: Temp Pulse Resp BP Pulse Ox 97.5 F L 99 H 20 143/74 H 91 L 12/22/20 04:00 12/22/20 04:00 12/22/20 04:00 12/22/20 04:00 12/22/20 04:00 Laboratory Results - last 24 hr 12/21/20 09:53: APTT 46.7 H D 12/21/20 15:59: APTT 64.1 H* D 12/21/20 22:10: APTT 58.2 H* 12/22/20 05:20: PT 12.1 H, INR 1.11 H, APTT 61.8 H* 12/22/20 05:20: WBC 10.3, RBC 4.58 L, Hgb 13.6 L, Hct 44.0, MCV 96.2 H, MCH 29.7, MCHC 30.9 L, RDW 16.4, Plt Count 301, MPV 8.7, Neut % (Auto) 68.0, Lymph % (Auto) 18.1, [place] % (Auto) 8.5, Eos % (Auto) 4.2, Baso % (Auto) 1.1, Neut # (Auto) 7.0, Lymph # (Auto) 1.9, [place] # (Auto) 0.9, Eos # (Auto) 0.4, Baso # (Auto) 0.1 12/22/20 05:20: Sodium 138, Potassium 4.4, Chloride 96 L, Carbon Dioxide 38 H, Anion Gap 8.4, BUN 15, Creatinine 0.90, Estimated Creat Clear 96, Estimated GFR 88, Est GFR ( Amer) 106, Glucose 121 H, Calcium 9.3, Magnesium 2.1, Total Bilirubin 0.5, AST 35, ALT 23, Alkaline Phosphatase 101, Total Protein 7.7, Albumin 3.8, Globulin 3.9 H, Albumin/Globulin Ratio 1.0 L I & O for Last 24 hours: Intake & Output 12/19/20 12/20/20 12/21/20 12/22/20 11:59 11:59 11:59 11:59 Intake Total 610 / 610 1352 / 1352 840 / 840 Output Total 875 / 875 3750 / 3750 6550 / 6550 Balance -265 / -265 -2398 / -2398 -5710 / -5710 Weight 460 lb 458 lb 6.726 oz 460 lb 8.73 oz Microbiology Reports for the Last 24 Hours: Microbiology 12/19/20 17:15 Blood Blood Culture - Preliminary NO GROWTH AFTER 48 HOURS 12/19/20 17:15 Blood Blood Culture - Preliminary NO GROWTH AFTER 48 HOURS Narrative: No changes on examination. Lungs have poor air movement because of obesity. No rhonchi audible. Exam is extremely difficult because of his body type and obesity. No significant edema or perfusion deficits. Pulse rate regular. ENT and neurologic exam clear. Assessment and Plan (1) Respiratory failure with hypoxia Status: Acute Qualifiers: Chronicity: acute Qualified Code(s): J96.01 - Acute respiratory failure with hypoxia Category: Medical Code(s): J96.91 - Respiratory failure, unspecified with hypoxia (2) Sinus bradycardia Status: Acute Category: Medical Code(s): R00.1 - Bradycardia, unspecified (3) Morbid obesity Status: Chronic Category: Medical Code(s): E66.01 - Morbid (severe) obesity due to excess calories (4) SOB (shortness of breath) Status: Acute Category: Medical Code(s): R06.02 - Shortness of breath - Assessment and plan all Dx Assessment and Plan for all problems:: High risk of PE, plan unchanged from yesterday. We are investigating whether the [facility] has a bariatric sized CT scan that we can send patient over to be scanned and then make decisions about anticoagulations based on that data if available. If has a bed we will transfer today.
--- NOTE | 2020-12-22 09:49 | CT_ITS ---
PROCEDURE: CT ANGIO CHEST CLINCIAL INDICATION: SOA Shortness of air, elevated D-dimer COMPARISON: CR XR CHEST PORTABLE from 12/19/2020 TECHNIQUE: IV Contrast: 70ML Isovue 370 Axial images obtained with sagittal and coronal reformats. All CT scans at the facility use one or more dose reduction, viz: automated exposure control, ma/kV adjustment per patient size (including targeted exams where dose is matched to indication, i.e. head), or iterative reconstruction technique. FINDINGS: Images are somewhat limited secondary to patient's body habitus. There is fair opacification of the pulmonary arteries. There is no evidence of central pulmonary embolus. The peripheral pulmonary arteries are not well opacified but no obvious embolus is evident. No mediastinal or hilar mass or adenopathy. There are few small mediastinal lymph nodes measuring up 2 1.6 cm in the right paratracheal region. There are few small axillary lymph nodes as well. There is no evidence of aortic aneurysm. There are trace bilateral pleural effusions with atelectatic changes in the lower lobes. There is mild interlobular septal thickening. Mild bronchial thickening also noted. There is some faint haziness in the upper lobes. Patchy infiltrate is present in the left upper lobe posteriorly. Upper abdominal images show some pain haziness around the descending portion of the duodenum. This is nonspecific. IMPRESSION: 1. No evidence of pulmonary embolus. 2. Trace bilateral effusions. Mild interlobular septal thickening in the upper lobes with hazy appearance in the upper lobes. This could be related to resolving pulmonary edema/CHF. Cannot exclude underlying infective process. 3. Mild haziness around the descending portion of the duodenum which could be due to underlying inflammatory changes. Dictated by: Evaristo Schwartz MD 12/22/2020 10:48 Evaristo Schwartz MD in [place] 12/22/2020 10:48
[2020-12-22 12:43] LABS: Activated Partial Thrombo Time 72.3 seconds (23.6-34.0)
--- NOTE | 2020-12-22 13:44 | PC.NURSE ---
Patient encouraged to use nasal cannula for oxygen needs, O2 at 4lpm applied with humidification at 1200. Patient has tolerated well, 02 saturation at 95%, no c/o sob.
[2020-12-22 16:00] VITALS: BP 125/73; PULSE 75; RESP 16; TEMP 36.6; O2SAT 97
--- NOTE | 2020-12-22 16:53 | PC.NURSE ---
per md garsia heparin drip
[2020-12-22 17:03] LABS: Activated Partial Thrombo Time 73.7 seconds (23.6-34.0)
--- NOTE | 2020-12-22 18:21 | PC.NURSE ---
since gaining care of patient he has done well. no complaints noted. noted opening of sores on legs. has been independent in room. vitals stable.
[2020-12-22 20:00] VITALS: BP 166/90; PULSE 102; RESP 16; RESP 24; TEMP 36.6; O2SAT 95
[2020-12-22 20:41] VITALS: O2SAT 82
[2020-12-23 04:00] VITALS: BP 140/92; PULSE 106; RESP 25; TEMP 36.4; O2SAT 92
--- NOTE | 2020-12-23 04:39 | PC.NURSE ---
Slept most of shift. Remains on 4 L O2 per nasal cannula. Denies being SOA. Occasional dry cough noted. HR regular. Pulses present, equal. Abdomen large, soft, non-tender w/ active BS. Last BM stated was yesterday. Voiding per urinal w/o difficulty. Ambulate independently w/ no safety concerns. Pt does have limited mobility d/t size and requires assistance w/ some ADL's. Pt showered this shift, assistance w/ alex care. Bed linens changed. Pt currently sitting up in recliner @ side of bed. No complaints voiced. VSS.
[2020-12-23 04:58] VITALS: BMI 65.0
[2020-12-23 08:00] VITALS: BP 120/69; PULSE 97; RESP 20; TEMP 36.9; O2SAT 94; O2SAT 95
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
--- NOTE | 2020-12-23 10:38 | SW/DCPLANNER ---
SET UP HOME 02 FOR THIS PATIENT THAT IS DISCHARGING HOME TODAY WITH JACOB... 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 A PORTABLE WILL BE DELIVERED UP TO THE HOSPITAL BEFORE HE LEAVES THE HOSPITAL..
== END 2020-12-23 13:20 | disposition home or self-care (01) | DRG 189 ==
LOC: ER 20:09 → 2ND 20:36
PROVIDERS: Admitting Provider Internal Medicine Adolescent Medicine; Emergency Provider Emergency Medicine; PCP Internal Medicine Adolescent Medicine; Visit Provider Internal Medicine Adolescent Medicine
DX: J96.00 Acute respiratory failure, unspecified whether with hypoxia or hypercapnia (principal); J12.89 Other viral pneumonia; E66.2 Morbid (severe) obesity with alveolar hypoventilation; Z68.44 Body mass index [BMI] 60.0-69.9, adult; I11.0 Hypertensive heart disease with heart failure; I50.9 Heart failure, unspecified; Z87.891 Personal history of nicotine dependence; Z79.899 Other long term (current) drug therapy
CPT/HCPCS: 36415; 71045; 71275; 80048; 80053; 83605; 83735; 83880; 84145; 84484; 85025; 85378; 85610; 85730; 86328; 87040; 87205; 87278; 87581; 87633; 87798; 93005; 93306; 93970; 96372; 96375; 99284; J0456; Q9957; Q9967

== ENCOUNTER → 2021-01-29 15:16 | Outpatient (CLI) | payer OTHER, SELFPAY | PROVIDERS: PCP Internal Medicine Adolescent Medicine; Visit Provider Internal Medicine Adolescent Medicine | DX: G47.33 Obstructive sleep apnea (adult) (pediatric) (principal) | CPT/HCPCS: 95806 ==

== ENCOUNTER → 2021-05-03 17:31 | Outpatient (CLI) | payer OTHER, SELFPAY ==
[2021-05-03 18:34] LABS: Chloride 99 mmol/L (98-107); Potassium 4.9 mmoL/L (3.5-5.1); Sodium 140 mmol/L (136-145)
[2021-05-03 18:37] LABS: Alanine Aminotransferase 27 U/L (12-78); Albumin Level 3.9 g/dl (3.5-5.0); Albumin/Globulin Ratio 1.1 (1.1-1.8); Alkaline Phosphatase 112 U/L (38-126); Anion Gap 13.9 mEq/L (5-15); Aspartate Amino Transferase 36 U/L (17-59); Bilirubin,Total 0.5 mg/dl (0.2-1.3); Blood Urea Nitrogen 16 mg/dl (9-20); Carbon Dioxide 32 mmol/L (22.0-30.0); Chol/HDL Ratio 3.7 (1-3.5); Cholesterol 220 mg/dl (140-200); Estimated Glomerular Filt Rate 100 ml/min (>60); GFR (African American) 121 ML/MIN (>60); Globulin 3.7 g/dL (1.3-3.2); Glucose 62 mg/dl (74-100); HDL Cholesterol 59 mg/dl (40-60); Total Protein,Serum 7.6 g/dl (6.3-8.2); Triglycerides 81 mg/dl (30-150); VLDL Cholesterol 16 mg/dL (0-40)
[2021-05-03 18:49] LABS: Direct LDL Cholesterol 136.74 mg/dL (100-129)
== END ==
PROVIDERS: Visit Provider Nurse Practitioner Family
DX: Z00.00 Encounter for general adult medical examination without abnormal findings (principal); I87.2 Venous insufficiency (chronic) (peripheral); G47.33 Obstructive sleep apnea (adult) (pediatric); Z79.899 Other long term (current) drug therapy
CPT/HCPCS: 80053; 80061

== ENCOUNTER 2021-07-27 13:00 | Outpatient (RCR) | payer OTHER, SELFPAY ==
--- NOTE | 2021-07-08 15:03 | HMH.PTOPWND ---
Rehab Outpt Wound Evaluation Rehab OP Wound Evaluation Start: 07/08/21 13:58 Freq: Status: Active Protocol: Document 07/08/21 14:50 LIANE (Rec: 07/08/21 15:03 PHORNE [id number]) Electronically Signed By Alexsander Benitez, PT 07/08/21 14:50 Subjective/History History History Pt is 56 yowm who presents with ~4-5 yrs of increased B LE edema, L > R this episode, with intermittent open sores. He presents with L lateral calf wound this date that has been present x ~ 3 mos and obvious lymphedema with increased papillomatosis and hyperkeratosis. He has significant morbid obesity with lymphedema of his pannus as well. 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 He has PMH of [place] and Morbid Obesity. Subjective Subjective Currently no c/o pain, but is tender to palpation around the erythematous area on his anterior L ankle. Wound Eval Wound Left Lateral Calf Wound Type Stasis Ulcer Is This a Chronic Wound Yes Wound Length (cm) 9.0 Wound Width (cm) 4.0 Wound Bed Appearance Yancey,Yellow Wound Margins Description Well Defined Surrounding Tissue Appearance Bright Red Edema Type Non-Pitting,Pitting Edema Degree 2+ Query Text:1+ Trace, Barely Detectable, Rebound 15-30 seconds 2+ Moderate, Slight Indentation, Rebound 10-20 seconds 3+ Deep, Deeper Indentation, Rebound > 30 seconds 4+ Very Deep, Rebound > 60 seconds Edema Appearance Weeping,Shiny,Tight,Hard, Stretched Looking,Open Sores, Red Surrounding Tissue Temperature Warm Drainage Description Serous Drainage Amount Moderate Wound Topical Solution/Irrigant Saline Irrigant Primary Dressing Unna Boot Wound Secondary Dressing Type Gauze Roll/Wrap,Adhering Gauze Roll Wound Debridement Method Gauze Wound Debridement Amount of Tissue Minimal Removed Dressing Change Patient Tolerance Tolerated Well Lymphedema Eval Classification of Lymphedema Secondary Lymphedema
== END 2021-07-27 13:05 | disposition home or self-care (01) ==
LOC: PT 13:00
PROVIDERS: PCP Internal Medicine Adolescent Medicine; Visit Provider Internal Medicine Adolescent Medicine
DX: I89.0 Lymphedema, not elsewhere classified (principal)
CPT/HCPCS: 29580; 97140; 97163; 97597

== ENCOUNTER 2021-08-20 10:47 | Inpatient (IN) | payer OTHER, SELFPAY ==
[2021-08-20] VITALS (16 sets, daily range): BP systolic 95–134; BP diastolic 43–81; PULSE 80–115; RESP 3–36; TEMP 36.8–37.5; O2SAT 70–97; BMI 67.1; BMI 64.7
--- NOTE | 2021-08-20 10:19 | ECG_ITS ---
APPROVED REPORT Exam: Resting ECG HR:113 bpm ECG Measurements Heart Rate 113 AXES AZ 136 P 53 QRSd 78 QRS 54 QT 316 T 50 QTc 433 Conclusion Sinus tachycardia Low voltage QRS Old anteroseptal changes Abnormal ECG Electronically signed by : Beny Yousif MD 08/21/2021 09:19:05
--- NOTE | 2021-08-20 10:28 | HMH.EDGENADL ---
ED Disposition Clinical Impression: Pneumonia due to COVID-19 virus Respiratory failure with hypoxia and hypercapnia Qualifiers: Chronicity: acute Qualified Code(s): J96.01 - Acute respiratory failure with hypoxia Disposition: Admitted As Inpatient Condition on Discharge: Critical - Critical Care Critical Care Time: Yes Attestation: On , the high probability of a clinically significant, sudden or life threatening deterioration of the following system(s) required my full and direct attention, intervention and personal management. The time I documented below is in addition to time spent performing reported procedures but includes the following listed in this critical care notation. Total Critical Care Time: 30 Vital system(s) involved:: Respiratory Failure My critical care processes included: Assessment & monitoring of V/S, Initial and Re-exams, Data Review/Interpretation, Coordinating Care, Medication Orders and management, Documentation Medical Decision Making - Sajan Inquiry Pt receiving controlled substance: No Vital Signs: 08/20/21 10:21 08/20/21 10:32 08/20/21 10:42 Temperature 98.9 F Temperature Source Oral Pulse Rate 110 H Pulse Rate [Right] 115 H Respiratory Rate 32 H 27 H Blood Pressure 98/63 L Blood Pressure [Right Arm] 100/43 L Blood Pressure Mean 69 Blood Pressure Mean [Right Arm] 62 Blood Pressure Source Blood Pressure Source [Right Arm] Automatic Cuff Blood Pressure Position Blood Pressure Position [Right Arm] Sitting 02 Sat by Pulse Oximetry 70 L 94 L 95 Oxygen Delivery Method BiPAP CPAP BiPAP Oxygen Flow Rate (LPM) 90 08/20/21 11:01 08/20/21 11:30 08/20/21 12:33 Temperature Temperature Source Pulse Rate 90 96 H 92 H Pulse Rate [Right] Respiratory Rate 24 27 H 36 H Blood Pressure 100/55 L 118/76 108/69 L Blood Pressure [Right Arm] Blood Pressure Mean 63 86 Blood Pressure Mean [Right Arm] Blood Pressure Source Automatic Cuff Blood Pressure Source [Right Arm] Blood Pressure Position Sitting Blood Pressure Position [Right Arm] 02 Sat by Pulse Oximetry 90 L 97 94 L Oxygen Delivery Method CPAP BiPAP Oxygen Flow Rate (LPM) - Lab Data Lab Results 08/20/21 10:20: WBC 12.9 H, RBC 4.33 L, Hgb 13.5 L, Hct 42.3, MCV 97.6 H, MCH 31.1, MCHC 31.8, RDW 16.3, Plt Count 317, MPV 9.1, Neut % (Auto) 82.5 H, Lymph % (Auto) 10.9, [place] % (Auto) 4.7, Eos % (Auto) 0.0 L, Baso % (Auto) 1.9, Neut # (Auto) 10.7 H, Lymph # (Auto) 1.4, [place] # (Auto) 0.6, Eos # (Auto) 0.0, Baso # (Auto) 0.3 H 08/20/21 10:20: Sodium 137, Potassium 4.5, Chloride 97 L, Carbon Dioxide 27, Anion Gap 17.5 H, BUN 28 H, Creatinine 1.50 H, Estimated Creat Clear 55, Estimated GFR 48 L, Est GFR ( Amer) 59, Glucose 134 H, Calcium 7.6 L, Total Bilirubin 0.9, AST 149 H, ALT 48, Alkaline Phosphatase 106, Troponin I 0.12 H, Total Protein 7.2, Albumin 3.4 L, Globulin 3.8 H, Albumin/Globulin Ratio 0.9 L 08/20/21 10:20: Lactate 4.2 H 08/20/21 10:20: SARS-CoV-2 (PCR) Detected A, Influenza A Untype (PCR) Not detected, Influenza Type B (PCR) Not detected 08/20/21 10:20: NT-Pro-B Natriuret Pep 872 H Result diagrams: 08/20/21 10:20 08/20/21 10:20 Orders (Tests/Meds): ED MEDICATIONS Generic Name Dose Route Start Last Admin Trade Name Freq PRN Reason Stop Dose Admin Levofloxacin/Dextrose 750 mg in 150 mls @ 100 mls/hr 08/20/21 11:45 08/20/21 12:02 Levofloxacin 750mg/150ml Premix IV 09/03/21 11:44 100 mls/hr Q24H MARTINEZ Administration Discontinued Medications Generic Name Dose Route Start Last Admin Trade Name Freq PRN Reason Stop Dose Admin Dexamethasone Sodium Phosphate 10 mg 08/20/21 10:34 08/20/21 12:01 Dexamethasone 4mg/Ml 1ml Vial IV 08/20/21 10:35 10 mg ONCE ONE Administration ORDERS Category Date Time Status Troponin I Q3H Lab 08/20/21 13:45 Ordered Troponin I Q3H Lab 08/20/21 16:45 Ordered Blood Culture Stat Micro 08/20/21 10:47
--- NOTE | 2021-08-20 10:34 | XR_ITS ---
PROCEDURE INFORMATION: Exam: XR Chest Exam date and time: 08/20/2021 10:34 AM Age: 56 years old Clinical indication: Shortness of breath; Patient HX: Sob- possible covid; Additional info: SOA TECHNIQUE: Imaging protocol: XR of the chest. Views: 1 view. COMPARISON: CR XR CHEST PORTABLE 12/19/2020 5:45 PM FINDINGS: Evaluation is limited by patient body habitus and portable positioning. Lungs: Interstitial prominence and bilateral airspace disease, in a pattern of bronchopneumonia, with COVID-19 pneumonitis included in the differential diagnosis. Pleural spaces: Skin fold overlying the lung base, limits visualization of the costophrenic angles. Heart/Mediastinum: Mild mediastinal widening. No cardiomegaly. Bones/joints: Degenerative change. IMPRESSION: Interstitial prominence and bilateral airspace disease, in a pattern of bronchopneumonia, with COVID-19 pneumonitis included in the differential diagnosis.
--- NOTE | 2021-08-20 10:34 | PC.NURSE ---
Resp at bedside and placed pt on bipap. 24/10, 24, and 90%. ABG obtained.
--- NOTE | 2021-08-20 10:35 | PC.NURSE ---
Pt arrives with sats in the 70's but does not appear to be in acute distress. Able to speak and provide hx as to what has been going on. Resp,, staff at bedside. IV obtained, ABG and pt placed on bipap. Sats increased to 90's at this time.
[2021-08-20 10:39] LABS: VBG Base Excess -1.3 mmol/L (-2.4-2.3); VBG HCO3 25.6 mmol/L (23-30); VBG Oxygen Saturation 72.7 % (50-70); VBG PCO2 56.3 mmol/L (35-51); VBG PH 7.28 mmol/L (7.31-7.41); VBG PO2 43.7 mmol/L (28-40); VBG Total CO2 27.3 mmol/L (23-27)
[2021-08-20 10:40] LABS: Influenza A, PCR Not Detected (NotDetected); Influenza B, PCR Not Detected (NotDetected)
[2021-08-20 10:44] LABS: Basophils # 0.3 K/mm3 (0-0.2); Basophils % 1.9 % (0.1-2.0); Hematocrit 42.3 % (42.0-52.0); Hemoglobin 13.5 g/dL (14.1-18.0); Lymphocytes # 1.4 K/mm3 (0.7-4.5); Lymphocytes % 10.9 % (10-50); Mean Corpuscular HGB Conc 31.8 g/dL (31.8-35.4); Mean Corpuscular Hemoglobin 31.1 pg (27.0-31.2); Mean Corpuscular Volume 97.6 fl (80-94); Mean Platelet Volume 9.1 fl (7.4-10.4); Monocytes # 0.6 K/mm3 (0.1-1.0); Monocytes % 4.7 % (1.7-9.3); Neutrophils # 10.7 K/mm3 (1.8-7.8); Neutrophils % 82.5 % (37.0-80.0); Platelet Count 317 K/mm3 (142-424); Red Blood Count 4.33 M/mm3 (4.60-6.20); Red Cell Distribution Width 16.3 % (11.5-17.5); White Blood Count 12.9 K/mm3 (4.8-10.8)
[2021-08-20 10:47] LABS: Chloride 97 mmol/L (98-107); Potassium 4.5 mmoL/L (3.5-5.1); Sodium 137 mmol/L (136-145)
[2021-08-20 10:50] LABS: Alanine Aminotransferase 48 U/L (12-78); Albumin Level 3.4 g/dl (3.5-5.0); Albumin/Globulin Ratio 0.9 (1.1-1.8); Alkaline Phosphatase 106 U/L (38-126); Anion Gap 17.5 mEq/L (5-15); Aspartate Amino Transferase 149 U/L (17-59); Bilirubin,Total 0.9 mg/dl (0.2-1.3); Blood Urea Nitrogen 28 mg/dl (9-20); Carbon Dioxide 27 mmol/L (22.0-30.0); Creatinine Clearance Estimated 55 mL/min (50-200); Estimated Glomerular Filt Rate 48 ml/min (>60); GFR (African American) 59 ML/MIN (>60); Globulin 3.8 g/dL (1.3-3.2); Total Protein,Serum 7.2 g/dl (6.3-8.2)
[2021-08-20 10:51] LABS: Calcium 7.6 mg/dl (8.4-10.2); Glucose 134 mg/dl (74-100)
[2021-08-20 10:52] LABS: Lactic Acid 4.2 mmol/L (0.7-2.1)
--- NOTE | 2021-08-20 10:54 | PC.NURSE ---
Notified of Critical lab value at this time 1052. Lactic acid of 4.2. name v number verified, lab repeated back. Dr Handy notified at 1053 face to face.
[2021-08-20 11:00] LABS: NT Pro Brain Natriuretic Pep. 872 pg/mL (0-125)
[2021-08-20 11:01] LABS: Coronavirus 19, PCR Detected (NotDetected)
[2021-08-20 11:02] LABS: Troponin I 0.12 ng/ml (0.00-0.034)
--- NOTE | 2021-08-20 12:12 | PC.NURSE ---
MD had spoke with pt and he advised that pt did not want intubation. I went in to speak with patient and fill out expression of wishes. When I asked about intubation, pt advised he was unsure and asked if he could speak with his . Allowed to come back and discuss plan with patient. MD went back into room and spoke with patient and about his wishes. At this time he has chosen not to be intubated, but would like to coded in the event his heart stopped. Pt also declined, NG feeding tube, and surgically inserted feeding tube. and both in agreement for patient wishes. requested initial and sign expression of wishes form. I witnessed initial and sign paper. Notified MD of pt's choices. Also advised pt he could change his mind about these wishes at anytime during his care. Pt advised he understood.
--- NOTE | 2021-08-20 13:24 | PC.NURSE ---
called report to
[2021-08-20 14:28] LABS: Troponin I 0.16 ng/ml (0.00-0.034)
[2021-08-20 14:40] LABS: Reflex Lactic Add Lactic Reflex
[2021-08-20 15:33] LABS: Lactic Acid Follow Up (RFLX 1) 1.3 mmol/L (0.7-2.1)
--- NOTE | 2021-08-20 15:46 | PC.NURSE ---
pt arrived to the floor at this time
--- NOTE | 2021-08-20 16:47 | HMH.PHAINT ---
MEDICATION RECONCILIATION COMPLETE USING EXTERNAL PHARMACY FILL HISTORY.
--- NOTE | 2021-08-20 16:55 | HMH.PHAVTE ---
[facility] Pharmacy VTE Monitoring - Patient Demographics Admission date: 08/20/21 Report Date: 08/20/21 Time: 16:55 Allergies/Adverse Reactions: Patient Allergies grass pollen Allergy (Severe, Verified 10/28/18 08:13) Sneezing Height: 1.75 m Weight: 199 kg Patient Problems: Current Active Problems Pneumonia due to COVID-19 virus (Acute) Respiratory failure with hypoxia and hypercapnia (Acute) - VTE Risk Labs: VTE Related Lab Results Hgb 13.5 g/dL (14.1-18.0) L 08/20/21 10:20 Hct 42.3 % (42.0-52.0) 08/20/21 10:20 Plt Count 317 K/mm3 (142-424) 08/20/21 10:20 BUN 28 mg/dl (9-20) H 08/20/21 10:20 Creatinine 1.50 mg/dl (0.66-1.25) H 08/20/21 10:20 Estimated Creat Clear 55 mL/min (50-200) 08/20/21 10:20 Was VTE Risk Assessment Performed: Yes VTE Score: 5 VTE Risk Level: Low Risk Clinical Trial Participant: No - Prophylaxis VTE Prophylaxis Ordered?: Yes Types of VTE Prophylaxis: TEDS Knee High, Pharmacological Location of Applied Device: Bilateral Lower Extremeties Pharmacologic Type: Enoxaparin
[2021-08-20 18:01] LABS: Troponin I 0.15 ng/ml (0.00-0.034)
--- NOTE | 2021-08-20 18:31 | PC.NURSE ---
PT IS RESTING IN BED WITH BIPAP ON. ALERT AND ORIENTED X4. O2 SATURATION 93-97% ON BIPAP. PT WAS ABLE TO TOLERATE TAKING PO MEDICATIONS. LUNG SOUNDS HAVE SCATTERED WHEEZES. ABDOMEN LARGE/FIRM WITH HYPOACTIVE BOWEL SOUNDS. PT HAD A DALTON BOOT NOTED TO HIS LLE THAT WAS REMOVED FOR SKIN ASSESSMENT. PT REQUESTED FOR A NEW DALTON BOOT NOT TO BE REAPPLIED AT THIS TIME. EDEMA NOTED TO BLE (NO OPEN AREAS NOTED TO BLE) REDNESS WITH A VERY SMALL STAGE 2 NOTED TO THE BUTTOCKS. REDNESS NOTED TO THE SCROTUM AND ABDOMINAL FOLD. PT STATES HE IS ABLE TO USE THE URINAL TO VOID. TURNS AND REPOSITIONS SELF IN BED. WILL CONTINUE TO MONITOR.
[2021-08-21] VITALS (10 sets, daily range): BP systolic 104–138; BP diastolic 62–86; PULSE 85–92; RESP 24–40; TEMP 36.4–36.9; O2SAT 91–95; BMI 65.2
--- NOTE | 2021-08-21 08:27 | HMH.HP ---
*Admission Date: 08/20/21 *Chief complaint: Shortness of air/congestion/fever *History of present illness: Brought in by ambulance for shortness of breath. States he is not felt well for 1 week since [place]. He has chills. Productive cough. Denies fever. States that he has been checking his pulse ox regularly. He says he does this because he has had issues in the past . He denies any lung problems but says that he has sleep apnea. He says his normal pulse oximetry runs in the 80s and 90s. Today he was short of breath and when he checked it his pulse ox was 35%. EMS reports a pulse ox in the 70s on their arrival. He is brought in on CPAP. He refused an IV in route, wanting to wait until he got to the hospital to have it started. EMS reports that he was speaking in 2 word sentences upon their arrival but after placed on CPAP was able to speak in full sentences and appeared much more comfortable. The patient says he feels much better on CPAP. He also had wheezing upon EMS arrival and was given 2 DuoNeb treatments during transport. No known exposure to COVID-19. He has not been vaccinated against COVID-19. Above note per ER. Work-up in ER revealed classic Covid pneumonitis, evidence of significant infiltrate, hypoxia and respiratory acidosis. Patient placed on BiPAP, helped him dramatically. He reiterated his desire not to be intubated. Patient transferred to hospital floor. Of note this morning patient states that he already feels 100% better than when I came in and he wishes to eat breakfast. [facility] History I have reviewed the patient's past medical history: Yes Medical History: Reports:: Congestive Heart Failure, Hyperlipidemia, Hypertension, Peripheral Vascular Disease Denies:: Cancer, Diabetes Mellitus Type 1, Diabetes Mellitus Type 2, MRSA *Have you ever received a pneumonia vaccine?: No *Have you received a flu vaccine this season?: No Other Surgeries: Yes: No Previous Surgery, Other Amputation: No Fractures: No - *Social History Last grade of school completed: High school graduate Smoking Status: Former smoker Tobacco Type: cigarettes, smokeless tobacco #Yrs smoked (if former smoker): 25 Alcohol Intake: never Alcohol Intake Frequency:: a few times a week Substance Use Type: denies use *Occupational Status:: disabled Housing: house Household Members: spouse *Travel in the last 8 weeks: None Family Hx:: Cancer, Heart Attack Review of Systems - Review of Systems Review of systems:: pertinent systems reviewed and negative unless documented below - *Neurologic Reports weakness Meds Home Medications Medication Instructions Recorded Confirmed Type Furosemide [Furosemide 40MG tAB*] 40 mg PO DAILY #30 tab 12/23/20 08/20/21 Rx Spironolactone 50 mg PO BID #60 tab 12/23/20 08/20/21 Rx Aspirin [Aspirin 81mg EC Tab] 81 mg PO DAILY 08/20/21 08/20/21 History Atorvastatin Calcium [Lipitor 20mg 20 mg PO HS 08/20/21 08/20/21 History Tab] Naproxen [Naproxen 500mg tab] 500 mg PO BIDP PRN 08/20/21 08/20/21 History Allergies Allergy/AdvReac Type Severity Reaction Status Date / Time grass pollen Allergy Severe Sneezing Verified 10/28/18 08:13 Exam Vital signs and Labs for Last 24 Hours: Temp Pulse Resp BP Pulse Ox 98.0 F 85 35 H 126/86 95 08/21/21 08:00 08/21/21 08:00 08/21/21 08:00 08/21/21 08:00 08/21/21 08:00 Laboratory Results - last 24 hr 08/20/21 10:20: WBC 12.9 H, RBC 4.33 L, Hgb 13.5 L, Hct 42.3, MCV 97.6 H, MCH 31.1, MCHC 31.8, RDW 16.3, Plt Count 317, MPV 9.1, Neut % (Auto) 82.5 H, Lymph % (Auto) 10.9, [place] % (Auto) 4.7, Eos % (Auto) 0.0 L, Baso % (Auto) 1.9, Neut # (Auto) 10.7 H, Lymph # (Auto) 1.4, [place] # (Auto) 0.6, Eos # (Auto) 0.0, Baso # (Auto) 0.3 H 08/20/21 10:20: Sodium 137, Potassium 4.5, Chloride 97 L, Carbon Dioxide 27, Anion Gap 17.5 H, BUN 28 H, Creatinine 1.50 H, Estimated Creat Clear 55, Estimated GFR 48 L, Est GFR ( Amer) 59, Glucose 13
[2021-08-21 08:35] LABS: Chloride 100 mmol/L (98-107); Sodium 141 mmol/L (136-145)
[2021-08-21 08:38] LABS: Alanine Aminotransferase 39 U/L (12-78); Albumin Level 3.2 g/dl (3.5-5.0); Albumin/Globulin Ratio 0.9 (1.1-1.8); Alkaline Phosphatase 101 U/L (38-126); Aspartate Amino Transferase 114 U/L (17-59); Bilirubin,Total 0.4 mg/dl (0.2-1.3); Blood Urea Nitrogen 33 mg/dl (9-20); Calcium 7.7 mg/dl (8.4-10.2); Carbon Dioxide 34 mmol/L (22.0-30.0); Creatinine Clearance Estimated 73 mL/min (50-200); Estimated Glomerular Filt Rate 69 ml/min (>60); GFR (African American) 84 ML/MIN (>60); Globulin 3.7 g/dL (1.3-3.2); Glucose 153 mg/dl (74-100); Total Protein,Serum 6.9 g/dl (6.3-8.2)
[2021-08-22] VITALS (12 sets, daily range): BP systolic 102–135; BP diastolic 56–97; PULSE 65–79; RESP 18–40; TEMP 36.6–37.1; O2SAT 89–96; BMI 65.2
--- NOTE | 2021-08-22 03:32 | PC.NURSE ---
No acute changes t/o shift. Pt has tolerated biPAP well with stats at 90%. Pt denies any pain this shift. Admin meds per JAN. Pt is able to make needs known to staff. VSS, will continue to monitor.
--- NOTE | 2021-08-22 03:52 | PC.NURSE ---
Gavin from lab called to report blood cultures was gram positive in cocci in sarcinids.
[2021-08-22 06:47] LABS: Chloride 104 mmol/L (98-107); Sodium 143 mmol/L (136-145)
[2021-08-22 06:48] LABS: Potassium 4.8 mmoL/L (3.5-5.1)
[2021-08-22 06:50] LABS: Alanine Aminotransferase 37 U/L (12-78); Albumin/Globulin Ratio 0.9 (1.1-1.8); Alkaline Phosphatase 98 U/L (38-126); Anion Gap 8.8 mEq/L (5-15); Aspartate Amino Transferase 86 U/L (17-59); Bilirubin,Total 0.4 mg/dl (0.2-1.3); Blood Urea Nitrogen 29 mg/dl (9-20); Carbon Dioxide 35 mmol/L (22.0-30.0); Creatinine Clearance Estimated 89 mL/min (50-200); Estimated Glomerular Filt Rate 87 ml/min (>60); GFR (African American) 106 ML/MIN (>60); Globulin 3.5 g/dL (1.3-3.2); Total Protein,Serum 6.5 g/dl (6.3-8.2)
[2021-08-22 06:51] LABS: Calcium 8.1 mg/dl (8.4-10.2); Glucose 133 mg/dl (74-100)
--- NOTE | 2021-08-22 08:12 | HMH.ACPN2 ---
Internal Medicine - PN: Subj *Date: 08/22/21 *Time: 08:12 Interval history: Patient is alert, talkative, extremely concerned about his need for documentation to be off work. Is also concerned about his inability to eat while he is on BiPAP. Exam Vital signs and Labs for Last 24 Hours: Temp Pulse Resp BP Pulse Ox 97.9 F 66 18 102/56 L 89 L 08/22/21 05:09 08/22/21 05:09 08/22/21 05:09 08/22/21 05:09 08/22/21 05:09 Laboratory Results - last 24 hr 08/21/21 07:32: Sodium 141, Potassium 5.0, Chloride 100, Carbon Dioxide 34 H, Anion Gap 12.0, BUN 33 H, Creatinine 1.10 D, Estimated Creat Clear 73, Estimated GFR 69, Est GFR ( Amer) 84 D, Glucose 153 H, Calcium 7.7 L, Total Bilirubin 0.4, AST 114 H, ALT 39, Alkaline Phosphatase 101, Total Protein 6.9, Albumin 3.2 L, Globulin 3.7 H, Albumin/Globulin Ratio 0.9 L 08/22/21 06:12: Sodium 143, Potassium 4.8, Chloride 104, Carbon Dioxide 35 H, Anion Gap 8.8, BUN 29 H, Creatinine 0.90, Estimated Creat Clear 89, Estimated GFR 87, Est GFR ( Amer) 106 D, Glucose 133 H, Calcium 8.1 L, Total Bilirubin 0.4, AST 86 H, ALT 37, Alkaline Phosphatase 98, Total Protein 6.5, Albumin 3.0 L, Globulin 3.5 H, Albumin/Globulin Ratio 0.9 L I & O for Last 24 hours: Intake & Output 08/19/21 08/20/21 08/21/21 08/22/21 11:59 11:59 11:59 11:59 Intake Total 600 / 600 Output Total 300 / 300 475 / 475 Balance 300 / 300 -475 / -475 Weight 455 lb 440 lb 7.737 oz Microbiology Reports for the Last 24 Hours: Microbiology 08/20/21 10:20 Blood Blood Culture - Preliminary Narrative: Exam is extremely difficult because of his morbid obesity but is not changed significantly from yesterday's exam. O2 saturations are acceptable on current BiPAP settings. He is alert. No focal neurologic deficits. Globally weak but is able to move his extremities symmetrically. Lungs have poor air movement, but symmetric. Heart rate regular. Abdominal exam and skin exam extremely complicated because of his obesity. Assessment and Plan (1) Pneumonia due to COVID-19 virus Status: Acute Category: Medical Code(s): U07.1 - COVID-19; J12.82 - Pneumonia due to coronavirus disease 2018 (2) Respiratory failure with hypoxia and hypercapnia Status: Acute Qualifiers: Chronicity: acute Qualified Code(s): J96.01 - Acute respiratory failure with hypoxia; J96.02 - Acute respiratory failure with hypercapnia Category: Medical Code(s): J96.91 - Respiratory failure, unspecified with hypoxia; J96.92 - Respiratory failure, unspecified with hypercapnia (3) CHF (congestive heart failure) Status: Acute Qualifiers: Category: Medical Code(s): I50.9 - Heart failure, unspecified (4) Chronic venous insufficiency Status: Acute Category: Medical Code(s): I87.2 - Venous insufficiency (chronic) (peripheral) (5) Morbid obesity Status: Chronic Category: Medical Code(s): E66.01 - Morbid (severe) obesity due to excess calories (6) Respiratory failure with hypoxia Status: Chronic Category: Medical Code(s): J96.91 - Respiratory failure, unspecified with hypoxia - Assessment and plan all Dx Assessment and Plan for all problems:: Patient is stable/slightly improved on current BiPAP settings. Continue current medications for COVID-19, continue oxygen and pressure support. Continue to respect patient's wishes not to be intubated. Patient is slightly improved and we will continue current plan.
--- NOTE | 2021-08-22 10:59 | DIET.NUTRFU ---
Addendum entered by Della William 08/29/21 10:05: PO intakes 100%, no nutritional concerns. BG wnl-130. Weights have not been documented 72h. Addendum entered by Della William 08/26/21 16:47: able to wean bipap last 72h PO intakes 75-100%, weight stable, BG moderate wnl-130 Addendum entered by Della William 08/24/21 10:47: Has continued to have trays withheld past 72h dt bipap use. Please offer supplements when able to come off bipap/tolerate. Weight stable, no edema reported, no BM t/o stay, BG moderate avg. 130. Original Note: pt on BiPAP, please assist with meal setup/bipap removal when able to eat.
--- NOTE | 2021-08-22 19:35 | PC.NURSE ---
Patient is non tele and on the bipap. Tried to wean patient off bipap per DrAnaya orders and patient tolerated it until he had a bowel movement. Patient's sats dropped to the 70's and 80's, patient was put back on the bipap. Plan of care is to wean oxygen. Bed in lowest position and call light in reach.
[2021-08-23] VITALS (14 sets, daily range): BP systolic 118–138; BP diastolic 53–74; PULSE 73–87; RESP 20–32; TEMP 36.4–37; O2SAT 88–99; BMI 64.0
--- NOTE | 2021-08-23 07:27 | HMH.ACPN2 ---
Internal Medicine - PN: Subj *Date: 08/23/21 *Time: 14:38 Interval history: Continues to remain tenuous. Tolerating BiPAP overnight. Anxious this morning on exam. Removed BiPAP during exam so patient could have some water. Oxygen saturations stable in the low 90s. Reviewed labs from this morning, remaining stable. Afebrile. Exam Vital signs and Labs for Last 24 Hours: Temp Pulse Resp BP Pulse Ox 98.4 F 73 30 H 138/73 92 L 08/23/21 03:31 08/23/21 03:31 08/23/21 03:31 08/23/21 03:31 08/22/21 23:53 I & O for Last 24 hours: Intake & Output 08/20/21 08/21/21 08/22/21 08/23/21 23:59 23:59 23:59 23:59 Intake Total 120 / 120 480 / 480 1200 / 1200 Output Total 675 / 775 1600 / 1600 Balance 120 / -180 -195 / -295 -1600 / -1600 1200 / 1200 Weight 199 kg 199.8 kg 200 kg 196 kg Microbiology Reports for the Last 24 Hours: Microbiology 08/20/21 10:47 Blood Blood Culture - Preliminary NO GROWTH AFTER 48 HOURS 08/20/21 10:20 Blood Blood Culture - Preliminary - Constitutional moderate distress, obese, chronically ill appearing - *Routine HEENT Exam Head: Present: normocephalic Eye: Present: EOMI, PERRL ENT: Present: mucous membranes moist - *Routine Neck Exam Present: supple. Absent: lymphadenopathy - *Routine Respiratory Exam Present: wheezes, diminished air movement. Absent: crackles - *Routine Cardiovascular Exam Present: RRR - *Routine Abdominal Exam Present: soft, normoactive bowel sounds, obese. Absent: tenderness - *Routine Extremities Exam Present: edema (chronic woody edema BLE). Absent: cyanosis, clubbing - *Routine Skin Exam Present: warm. Absent: rash - *Routine Neurological Exam Present: alert, oriented X3 Assessment and Plan (1) Pneumonia due to COVID-19 virus Status: Acute Category: Medical Code(s): U07.1 - COVID-19; J12.82 - Pneumonia due to coronavirus disease 2019 (2) Respiratory failure with hypoxia and hypercapnia Status: Acute Qualifiers: Chronicity: acute Qualified Code(s): J96.01 - Acute respiratory failure with hypoxia; J96.02 - Acute respiratory failure with hypercapnia Category: Medical Code(s): J96.91 - Respiratory failure, unspecified with hypoxia; J96.92 - Respiratory failure, unspecified with hypercapnia (3) CHF (congestive heart failure) Status: Acute Qualifiers: Category: Medical Code(s): I50.9 - Heart failure, unspecified (4) Chronic venous insufficiency Status: Acute Category: Medical Code(s): I87.2 - Venous insufficiency (chronic) (peripheral) (5) Morbid obesity Status: Chronic Category: Medical Code(s): E66.01 - Morbid (severe) obesity due to excess calories (6) Respiratory failure with hypoxia Status: Chronic Category: Medical Code(s): J96.91 - Respiratory failure, unspecified with hypoxia - Assessment and plan all Dx Assessment and Plan for all problems:: 56-year-old male with morbid obesity who presented with acute hypoxemic respiratory failure secondary to COVID-19 pneumonia. Patient is unvaccinated. Oxygen saturations remain appropriate on BiPAP. Decision made not to escalate care to invasive ventilation if patient decompensates. Plan as follows Acute hypoxemic respiratory failure COVID-19 pneumonia -Continue Covid protocol including medications as ordered. -Continue BiPAP, wean as tolerated. Currently stable at this time on FiO2 of 90%. Patient quite anxious this morning but reiterates desire not to be intubated. Agree with this given his morbid obesity, if he decompensates further, have high concern about survival potential. Cardiac diet when appropriate. Difficulty taking BiPAP off to eat. Continues to require inpatient management for hypoxemic respiratory failure. Patient's condition is tenuous. Prognosis is poor.
[2021-08-23 07:47] LABS: Basophils # 0.2 K/mm3 (0-0.2); Basophils % 1.4 % (0.1-2.0); Hematocrit 41.4 % (42.0-52.0); Hemoglobin 13.1 g/dL (14.1-18.0); Lymphocytes # 1.1 K/mm3 (0.7-4.5); Lymphocytes % 7.4 % (10-50); Mean Corpuscular HGB Conc 31.6 g/dL (31.8-35.4); Mean Corpuscular Hemoglobin 31.2 pg (27.0-31.2); Mean Corpuscular Volume 98.6 fl (80-94); Mean Platelet Volume 9.1 fl (7.4-10.4); Monocytes # 0.8 K/mm3 (0.1-1.0); Monocytes % 5.8 % (1.7-9.3); Neutrophils # 12.2 K/mm3 (1.8-7.8); Neutrophils % 85.3 % (37.0-80.0); Platelet Count 341 K/mm3 (142-424); Red Cell Distribution Width 16.1 % (11.5-17.5); White Blood Count 14.3 K/mm3 (4.8-10.8)
[2021-08-23 07:50] LABS: MANUAL DIFFERENTIAL MANUAL DIFFERENTIAL (MANUAL DIFF)
[2021-08-23 08:08] LABS: Alanine Aminotransferase 36 U/L (12-78); Albumin/Globulin Ratio 0.9 (1.1-1.8); Alkaline Phosphatase 105 U/L (38-126); Anion Gap 8.2 mEq/L (5-15); Aspartate Amino Transferase 82 U/L (17-59); Bilirubin,Total 0.5 mg/dl (0.2-1.3); Blood Urea Nitrogen 28 mg/dl (9-20); Calcium 8.3 mg/dl (8.4-10.2); Carbon Dioxide 36 mmol/L (22.0-30.0); Chloride 106 mmol/L (98-107); Creatinine Clearance Estimated 89 mL/min (50-200); Estimated Glomerular Filt Rate 87 ml/min (>60); GFR (African American) 106 ML/MIN (>60); Globulin 3.5 g/dL (1.3-3.2); Glucose 107 mg/dl (74-100); Potassium 5.2 mmoL/L (3.5-5.1); Sodium 145 mmol/L (136-145); Total Protein,Serum 6.5 g/dl (6.3-8.2)
[2021-08-23 09:25] LABS: Lymphocytes % 18 % (10-50); Monocytes % 5 % (2-9); Neutrophils % 77 % (42-76); Total Cells Counted 100
[2021-08-23 09:26] LABS: Anisocytosis 1+; Hypochromasia 2+; Macrocytosis 2+; Nucleated Red Blood Cells 2; Platelet Estimate Normal
--- NOTE | 2021-08-23 09:28 | PC.NURSE ---
RESPIRATORY CARE NOTE: PT OXYGEN DECREASED TO 80% AT THIS TIME SINCE SATS REMAIN 96% OR GREATER. RT CONFIRMED WITH RN THAT PT OXYGEN IS TO BE WEANED TOLERATED. WE WILL CONTINUE TO MONITOR.
[2021-08-23 14:02] LABS: Magnesium 2.3 mg/dl (1.6-2.3)
--- NOTE | 2021-08-23 16:16 | PC.NURSE ---
RESPIRATORY CARE NOTE: PT OXYGEN DECREASED TO 70%
--- NOTE | 2021-08-23 20:02 | PC.NURSE ---
HE IS AOX4, CONTINUES ON BIPAP FOR O2 SUPPORT. TOLERATED SITTING ON THE SIDE OF THE BED. 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 BIPAP WAS TITRATED PER RESPIRATORY NOTES.
[2021-08-24] VITALS (9 sets, daily range): BP systolic 131–158; BP diastolic 68–95; PULSE 70–98; RESP 22–32; TEMP 36.6–36.9; O2SAT 91–94; BMI 63.9
[2021-08-24 06:56] LABS: Basophils # 0.2 K/mm3 (0-0.2); Basophils % 1.6 % (0.1-2.0); Hematocrit 41.9 % (42.0-52.0); Hemoglobin 13.5 g/dL (14.1-18.0); Lymphocytes # 1.2 K/mm3 (0.7-4.5); Lymphocytes % 11.4 % (10-50); Mean Corpuscular HGB Conc 32.3 g/dL (31.8-35.4); Mean Corpuscular Hemoglobin 31.5 pg (27.0-31.2); Mean Corpuscular Volume 97.5 fl (80-94); Mean Platelet Volume 9.4 fl (7.4-10.4); Monocytes # 0.7 K/mm3 (0.1-1.0); Monocytes % 6.1 % (1.7-9.3); Neutrophils # 8.7 K/mm3 (1.8-7.8); Neutrophils % 80.9 % (37.0-80.0); Platelet Count 349 K/mm3 (142-424); White Blood Count 10.8 K/mm3 (4.8-10.8)
[2021-08-24 06:59] LABS: Chloride 102 mmol/L (98-107)
[2021-08-24 07:00] LABS: Potassium 4.8 mmoL/L (3.5-5.1); Sodium 141 mmol/L (136-145)
[2021-08-24 07:02] LABS: Alanine Aminotransferase 38 U/L (12-78); Aspartate Amino Transferase 72 U/L (17-59); Blood Urea Nitrogen 28 mg/dl (9-20); Creatinine Clearance Estimated 100 mL/min (50-200); Estimated Glomerular Filt Rate 100 ml/min (>60); GFR (African American) 121 ML/MIN (>60)
[2021-08-24 07:03] LABS: Albumin Level 3.1 g/dl (3.5-5.0); Albumin/Globulin Ratio 0.9 (1.1-1.8); Alkaline Phosphatase 98 U/L (38-126); Anion Gap 7.8 mEq/L (5-15); Bilirubin,Total 0.8 mg/dl (0.2-1.3); Calcium 8.6 mg/dl (8.4-10.2); Carbon Dioxide 36 mmol/L (22.0-30.0); Globulin 3.6 g/dL (1.3-3.2); Glucose 106 mg/dl (74-100); Total Protein,Serum 6.7 g/dl (6.3-8.2)
[2021-08-24 07:04] LABS: Magnesium 2.1 mg/dl (1.6-2.3)
--- NOTE | 2021-08-24 07:06 | PC.NURSE ---
Shift summary. No changes. This RN notified of pt desat to lower 80s. Upon entering room, pt bipap had been removed Bipap mask reapplied and pt education provided. No complaints voiced to staff. VSS. CB in reach
--- NOTE | 2021-08-24 08:01 | P.PN_ITS ---
Internal Medicine - PN: Subj *Date: 08/24/21 *Time: 08:01 Exam Vital signs and Labs for Last 24 Hours: Temp Pulse Resp BP Pulse Ox 97.9 F 93 H 22 140/68 94 L 08/24/21 04:00 08/24/21 05:49 08/24/21 04:00 08/24/21 04:00 08/24/21 04:00 Laboratory Results - last 24 hr 08/23/21 06:46: Total Counted 100, Neutrophils % (Manual) 77 H, Lymphocytes % (Manual) 18, Monocytes % (Manual) 5, Nucleated RBCs 2, Platelet Estimate Normal, Hypochromasia 2+, Anisocytosis 1+, Macrocytosis 2+ 08/23/21 06:46: Magnesium 2.3 08/23/21 06:46: Sodium 145, Potassium 5.2 H, Chloride 106, Carbon Dioxide 36 H, Anion Gap 8.2, BUN 28 H, Creatinine 0.90, Estimated Creat Clear 89, Estimated GFR 87, Est GFR ( Amer) 106, Glucose 107 H, Calcium 8.3 L, Total Bilirubin 0.5, AST 82 H, ALT 36, Alkaline Phosphatase 105, Total Protein 6.5, Albumin 3.0 L, Globulin 3.5 H, Albumin/Globulin Ratio 0.9 L 08/24/21 06:17: Sodium 141, Potassium 4.8, Chloride 102, Carbon Dioxide 36 H, Anion Gap 7.8, BUN 28 H, Creatinine 0.80, Estimated Creat Clear 100, Estimated GFR 100, Est GFR ( Amer) 121, Glucose 106 H, Calcium 8.6, Total Bilirubin 0.8, AST 72 H, ALT 38, Alkaline Phosphatase 98, Total Protein 6.7, Albumin 3.1 L , Globulin 3.6 H, Albumin/Globulin Ratio 0.9 L 08/24/21 06:17: WBC 10.8, RBC 4.30 L, Hgb 13.5 L, Hct 41.9 L, MCV 97.5 H, MCH 31.5 H, MCHC 32.3, RDW 16.0, Plt Count 349, MPV 9.4, Neut % (Auto) 80.9 H, Lymph % (Auto) 11.4, [place] % (Auto) 6.1, Eos % (Auto) 0.0 L, Baso % (Auto) 1.6, Neut # (Auto) 8.7 H, Lymph # (Auto) 1.2, [place] # (Auto) 0.7, Eos # (Auto) 0.0, Baso # (Auto) 0.2 08/24/21 06:17: Magnesium 2.1 I & O for Last 24 hours: Intake & Output 08/21/21 08/22/21 08/23/21 08/24/21 23:59 23:59 23:59 23:59 Intake Total 480 / 480 1200 / 1200 Output Total 675 / 775 1600 / 1600 1200 / 1200 Balance -195 / -295 -1600 / -1600 0 / 0 Weight 199.8 kg 200 kg 196 kg 195.77 kg Microbiology Reports for the Last 24 Hours: Microbiology 08/20/21 10:20 Blood Blood Culture - Preliminary Gram Positive Cocci Assessment and Plan (1) Pneumonia due to COVID-19 virus Status: Acute Category: Medical Code(s): U07.1 - COVID-19; J12.82 - Pneumonia due to coronavirus disease 2019 (2) Respiratory failure with hypoxia and hypercapnia Status: Acute Qualifiers: Chronicity: acute Qualified Code(s): J96.01 - Acute respiratory failure with hypoxia; J96.02 - Acute respiratory failure with hypercapnia Category: Medical Code(s): J96.91 - Respiratory failure, unspecified with hypoxia; J96.92 - Respiratory failure, unspecified with hypercapnia (3) CHF (congestive heart failure) Status: Acute Qualifiers: Category: Medical Code(s): I50.9 - Heart failure, unspecified (4) Chronic venous insufficiency Status: Acute Category: Medical Code(s): I87.2 - Venous insufficiency (chronic) (peripheral) (5) Morbid obesity Status: Chronic Category: Medical Code(s): E66.01 - Morbid (severe) obesity due to excess calories (6) Respiratory failure with hypoxia Status: Chronic Category: Medical Code(s): J96.91 - Respiratory failure, unspecified with hypoxia The patient's infection will respond to the chosen ABx?: Yes Is the patient receiving the right drug, dose, and route?: Yes Could a more targeted ABx be ordered?: No (GRAM + COCCI IN BLOOD)
--- NOTE | 2021-08-24 08:31 | HMH.ACPN2 ---
Internal Medicine - PN: Subj *Date: 08/24/21 *Time: 08:31 Interval history: Overnight patient has slept well on BiPAP. FiO2 has been able to be weaned down to 70%. He feels comfortable. His main complaint is lack of ability to eat as he wishes because of BiPAP. Exam Vital signs and Labs for Last 24 Hours: Temp Pulse Resp BP Pulse Ox 97.9 F 93 H 22 140/68 94 L 08/24/21 04:00 08/24/21 05:49 08/24/21 04:00 08/24/21 04:00 08/24/21 04:00 Laboratory Results - last 24 hr 08/23/21 06:46: Total Counted 100, Neutrophils % (Manual) 77 H, Lymphocytes % (Manual) 18, Monocytes % (Manual) 5, Nucleated RBCs 2, Platelet Estimate Normal, Hypochromasia 2+, Anisocytosis 1+, Macrocytosis 2+ 08/23/21 06:46: Magnesium 2.3 08/24/21 06:17: Sodium 141, Potassium 4.8, Chloride 102, Carbon Dioxide 36 H, Anion Gap 7.8, BUN 28 H, Creatinine 0.80, Estimated Creat Clear 100, Estimated GFR 100, Est GFR ( Amer) 121, Glucose 106 H, Calcium 8.6, Total Bilirubin 0.8, AST 72 H, ALT 38, Alkaline Phosphatase 98, Total Protein 6.7, Albumin 3.1 L, Globulin 3.6 H, Albumin/Globulin Ratio 0.9 L 08/24/21 06:17: WBC 10.8, RBC 4.30 L, Hgb 13.5 L, Hct 41.9 L, MCV 97.5 H, MCH 31.5 H, MCHC 32.3, RDW 16.0, Plt Count 349, MPV 9.4, Neut % (Auto) 80.9 H, Lymph % (Auto) 11.4, [place] % (Auto) 6.1, Eos % (Auto) 0.0 L, Baso % (Auto) 1.6, Neut # (Auto) 8.7 H, Lymph # (Auto) 1.2, [place] # (Auto) 0.7, Eos # (Auto) 0.0, Baso # (Auto) 0.2 08/24/21 06:17: Magnesium 2.1 I & O for Last 24 hours: Intake & Output 08/21/21 08/22/21 08/23/21 08/24/21 11:59 11:59 11:59 11:59 Intake Total 600 / 600 1200 / 1200 Output Total 300 / 300 475 / 475 1500 / 1500 1200 / 1200 Balance 300 / 300 -475 / -475 -300 / -300 -1200 / -1200 Weight 440 lb 7.737 oz 440 lb 14.792 oz 432 lb 1.696 oz 431 lb 9.6 oz Microbiology Reports for the Last 24 Hours: Microbiology 08/20/21 10:20 Blood Blood Culture - Preliminary Gram Positive Cocci Narrative: Patient remains alert, talkative. His morbid obesity really limits any kind of exam accuracy. His lungs seem to be expanding symmetrically. Heart rate is regular. His abdomen is morbidly obese. No evidence of skin lesions. Extremities are warm and well-perfused. ENT exam clear on BiPAP. Assessment and Plan (1) Pneumonia due to COVID-19 virus Status: Acute Category: Medical Code(s): U07.1 - COVID-19; J12.82 - Pneumonia due to coronavirus disease 2019 (2) Respiratory failure with hypoxia and hypercapnia Status: Acute Qualifiers: Chronicity: acute Qualified Code(s): J96.01 - Acute respiratory failure with hypoxia; J96.02 - Acute respiratory failure with hypercapnia Category: Medical Code(s): J96.91 - Respiratory failure, unspecified with hypoxia; J96.92 - Respiratory failure, unspecified with hypercapnia (3) CHF (congestive heart failure) Status: Acute Qualifiers: Category: Medical Code(s): I50.9 - Heart failure, unspecified (4) Chronic venous insufficiency Status: Acute Category: Medical Code(s): I87.2 - Venous insufficiency (chronic) (peripheral) (5) Morbid obesity Status: Chronic Category: Medical Code(s): E66.01 - Morbid (severe) obesity due to excess calories (6) Respiratory failure with hypoxia Status: Chronic Category: Medical Code(s): J96.91 - Respiratory failure, unspecified with hypoxia - Assessment and plan all Dx Assessment and Plan for all problems:: Patient is slowly improving. Certainly has a long way to go. We will trial him on Vapotherm as tolerated. We will get PT and OT to evaluate him. I spoke with his daughter Kimberly today who is an employee at the rehab unit at [facility] and she is interested him coming there for rehabilitation. He certainly will need rehab and we will investigate this facility.
--- NOTE | 2021-08-24 09:50 | SW/DCPLANNER ---
Addendum entered by Ana Laura Siu 08/25/21 11:50: Daughter has called back and stated that patient will need a rolling walker and bedside commode at home once he is ready for discharge. I will also review information to see if patient will qualify for home O2 once medically stable discharge. Addendum entered by Ana Laura Siu 08/25/21 11:29: I spoke with this patient via phone and he stated that he would prefer to discharge home at time of discharge but is willing to do whatever he needs to do to regain his strength. PT/OT has stated that patient could return home with home health at time of discharge. Patient asked that I contact his daughter to come up with the best decision. After a lengthy discussion with daughter she feels that patient will be better served to return home with home health services. I continue to follow up with this patient and daughter until medically stable for discharge. I will also set patient up with home health services at discharge. Discharge date is unknown at this time. Original Note: I received notification from Dr Yousif regarding daughter (Kimberly) asking about placement at time of discharge for this patient. I called and spoke with Kimberly( [phone]): she stated that she works at [facility] and was considering placement there. Bard has found out since speaking with Dr Yousif that [facility] can NOT accept this patient till 21 days post positive COVID swab due to not being vaccinated. Kimberly stated that her main goal is for her father to return home once medically stable unless placement is necessary. 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 PT/OT evaluation has been ordered for today: I will follow up with Kimberly and once this is completed regarding appropriate discharge plans. Discharge date is unknown at this time.
--- NOTE | 2021-08-24 09:52 | HMH.OTEV ---
OT Inpatient Evaluation Rehab OT IP Evaluation Start: 08/24/21 08:30 Freq: ONCE Status: Complete Protocol: Document 08/24/21 09:29 SUMANWILBERT (Rec: 08/24/21 09:52 SUMANWILBERT [id number]) Rehab OT IP Assessment Subjective History *Admission Date: 08/20/21 Brought in by ambulance for shortness of breath. States he is not felt well for 1 week since the [place] festival. He has chills. Productive cough. Denies fever. States that he has been checking his pulse ox regularly. He says he does this because he has had issues in the past . He denies any lung problems but says that he has sleep apnea. He says his normal pulse oximetry runs in the 80s and 90s. Today he was short of breath and when he checked it his pulse ox was 35%. EMS reports a pulse ox in the 70s on their arrival. He is brought in on CPAP. He refused an IV in route, wanting to wait until he got to the hospital to have it started. EMS reports that he was speaking in 2 word sentences upon their arrival but after placed on CPAP was able to speak in full sentences and appeared much more comfortable. The patient says he feels much better on CPAP. He also had wheezing upon EMS arrival and was given 2 DuoNeb treatments during transport. No known exposure to COVID-19. He has not been vaccinated against COVID-19. Above note per ER. Work-up in ER revealed classic Covid pneumonitis, evidence of significant infiltrate, hypoxia and respiratory acidosis. Patient placed on BiPAP, helped him dram
--- NOTE | 2021-08-24 11:56 | HMH.PTEV ---
Physical Therapy Evaluation Rehab PT IP Evaluation Start: 08/24/21 08:30 Freq: ONCE Status: Active Protocol: Document 08/24/21 11:00 SHANIKA (Rec: 08/24/21 11:56 SHANIKA [id number]) Subjective/History History History This is the initial evaluation for Rafael Malhotra. Pt is a 56 y/o male admitted to ED for SOA related to COVID. - note done by FLORENCIO Smith Subjective Subjective Pt states he lives at home with his . Pt states he uses a SP cane as his mobility aid. Rehab PT IP Eval Objective Appearance Patient Behavior Appropriate,Cooperative, Fatigued Patient Orientation Place,Time,Name,Birthday,Year Difficulty following instructions none Speech Pattern Clear,Appropriate,Coherent Ambulation Patient Able to Ambulate No Balance Ability to Arise Able, uses arms to help Sitting Balance Steady, safe Standing Balance Steady, wide stance Dynamic Sitting Balance Ability Normal Dynamic Standing Balance Ability Fair Transfers Bed Transfer Ability Contact Guard/Hand Hold Sit to Stand Bed Transfer Ability Contact Guard/Hand Hold Rehab PT IP prob,goals,plan Problems Date of Evaluation: 08/24/21 PT IP Problems Transfers,Gait,Balance,Self care,Safety Rehab Potential Rehab Potential Fair Equipment Needs Assistive Devices Rolling / Wheeled Walker Plan PT Intervention Plan Bed Mobility,Transfers,Gait, Balance,Self care,Safety, Therapeutic Exercise PT Plan Frequency BID Duration LOS Discharge Goals Bed Transfer Ability Supervision/Stand by Ambulation Assistive Device Straight Cane Ambulation Distance (feet) 2 Discharge Plan PT Discharge Plan Pt will benefit skilled physical therapy to help improve strength, endurance, safe gait, ambulation, and self care, and independence. Once pt medically stable he will be safe to return home. G -code Required No Eval Complexity Eval Charge Codes 19416 - Low Complexity PHYSICIAN CERTIFICATION: I certify the specified therapy services for Rafael Malhotra are required, authorized, and reviewed every 30 days.
--- NOTE | 2021-08-24 12:00 | PC.NURSE ---
Addendum entered by Renae Quintero, RT 08/24/21 12:15: CORRECTION- OXYGEN DECREASED TO 60% Original Note: RESPIRATORY CARE NOTE: PT OXYGEN DECREASED TO 50% ON BIPAP AT THIS TIME. WE WILL CONTINUE TO MONITOR PT MOVING FORWARD.
--- NOTE | 2021-08-24 16:00 | PC.NURSE ---
RESPIRATORY CARE NOTE: AT APPROXIMATELY 1515 PT WAS TAKEN OFF BIPAP AND PLACED ON VAPOTHERM 40 LPM; 60%. PT WILL CONTINUED TO BE WEANED TOLERATED. WILL CONTINUE TO MONITOR PT MOVING FORWARD.
--- NOTE | 2021-08-24 18:32 | PC.NURSE ---
PT IS SITTING UP IN THE CHAIR. O2 SATURATION HAS MAINTAINED 90-92% ON VAPOTHERM 40 L 60% FIO2 T/ O THE AFTERNOON. PT STATES HE IS STARTING TO FEEL BETTER. EATING AND DRINKING WELL. LUNG SOUNDS DIMINISHED. ABDOMEN LARGE/FIRM/NON TENDER WITH ACTIVE BOWEL SOUNDS. LYMPHEDEMA NOTED TO BLE. VSS. WILL CONTINUE TO MONITOR.
[2021-08-25] VITALS (10 sets, daily range): BP systolic 124–160; BP diastolic 54–88; PULSE 76–118; RESP 24–28; TEMP 36.7–37; O2SAT 90–97; BMI 64.0
--- NOTE | 2021-08-25 05:09 | PC.NURSE ---
This RN was notified of pt sat of 82%. Upon entering room pt appeared SOA leaning up in chair. RT called to floor and vapotherm titrated up to 40L/100%. Pt currently sat 90 and above. Pt c/o pain in armpit area. Skin appeared moist and red. Dressing applied bilaterally. Refused bath. CB in reach. Will continue to monitor.
[2021-08-25 07:36] LABS: Chloride 99 mmol/L (98-107); Potassium 4.6 mmoL/L (3.5-5.1); Sodium 141 mmol/L (136-145)
[2021-08-25 07:38] LABS: Blood Urea Nitrogen 28 mg/dl (9-20); Creatinine Clearance Estimated 89 mL/min (50-200); Estimated Glomerular Filt Rate 87 ml/min (>60); GFR (African American) 106 ML/MIN (>60)
[2021-08-25 07:39] LABS: Alanine Aminotransferase 59 U/L (12-78); Albumin Level 3.4 g/dl (3.5-5.0); Albumin/Globulin Ratio 0.9 (1.1-1.8); Alkaline Phosphatase 99 U/L (38-126); Anion Gap 11.6 mEq/L (5-15); Aspartate Amino Transferase 84 U/L (17-59); Bilirubin,Total 0.8 mg/dl (0.2-1.3); Carbon Dioxide 35 mmol/L (22.0-30.0); Glucose 99 mg/dl (74-100); Total Protein,Serum 7.4 g/dl (6.3-8.2)
--- NOTE | 2021-08-25 20:11 | PC.NURSE ---
PT HAS BEEN SITTING UP IN THE CHAIR ALL SHIFT. ALERT AND ORIENTED X4. O2 SATURATION MAINTAINING 90-93% ON VAPOTHERM 40 L 100% FIO2. RESPIRATORY RATE 26-32 HOWEVER PT STATES HE DOES NOT FEEL SOA AND ABSOLUTELY DOES NOT WANT THE BIPAP BACK ON. LUNG SOUNDS DIMINISHED. ABDOMEN LARGE/NON TENDER WITH HYPOACTIVE BOWEL SOUNDS. REDNESS NOTED TO THE BUTTOCKS. EXCORIATION NOTED TO PT'S SCROTUM. SWELLING/REDNESS NOTED TO BLE. EATING AND DRINKING WELL. WILL CONTINUE TO MONITOR.
[2021-08-26] VITALS (12 sets, daily range): BP systolic 105–144; BP diastolic 41–75; PULSE 68–103; RESP 14–32; TEMP 36.4–37.2; O2SAT 90–97
--- NOTE | 2021-08-26 06:55 | PC.NURSE ---
NO ACUTE CHANGES. PT HAS CONTINUED TO RECEIVE O2 VIA VAPOTHERM, 40L,100%. TOLERATING WELL WITH SATS IN LOW 90S. PT HAS HAD 2X EPISODES WHERE HE HAS REMOVED VAPOTHERM AND HAS DROPPED TO LOW 70S. PT CURRENTLY IN BED. VSS. CB IN REACH. WILL CONTINUE TO MONITOR.
[2021-08-26 08:11] LABS: Basophils # 0.1 K/mm3 (0-0.2); Basophils % 0.9 % (0.1-2.0); Eosinophils # 0.1 K/mm3 (0.0-0.4); Eosinophils % 0.8 % (0.1-12.0); Hematocrit 44.4 % (42.0-52.0); Hemoglobin 13.9 g/dL (14.1-18.0); Lymphocytes # 1.3 K/mm3 (0.7-4.5); Mean Corpuscular HGB Conc 31.3 g/dL (31.8-35.4); Mean Corpuscular Hemoglobin 31.2 pg (27.0-31.2); Mean Corpuscular Volume 99.7 fl (80-94); Mean Platelet Volume 9.3 fl (7.4-10.4); Monocytes # 0.8 K/mm3 (0.1-1.0); Monocytes % 6.6 % (1.7-9.3); Neutrophils # 9.4 K/mm3 (1.8-7.8); Neutrophils % 80.7 % (37.0-80.0); Platelet Count 390 K/mm3 (142-424); Red Blood Count 4.45 M/mm3 (4.60-6.20); Red Cell Distribution Width 16.6 % (11.5-17.5); White Blood Count 11.7 K/mm3 (4.8-10.8)
--- NOTE | 2021-08-26 08:14 | HMH.ACPN2 ---
Internal Medicine - PN: Subj *Date: 08/26/21 *Time: 08:14 Interval history: Patient has been successfully able to tolerate Vapotherm instead of BiPAP through the days for the past couple of days. He has been up and around in the room slightly, has been going from bed to chair. He gets somewhat breathless but certainly not as much as on admission. He has been coughing up clear sputum. Exam Vital signs and Labs for Last 24 Hours: Temp Pulse Resp BP Pulse Ox 98.0 F 103 H 18 128/52 L 90 L 08/26/21 07:28 08/26/21 07:28 08/26/21 07:28 08/26/21 07:28 08/26/21 07:28 I & O for Last 24 hours: Intake & Output 08/23/21 08/24/21 08/25/21 08/26/21 11:59 11:59 11:59 11:59 Intake Total 1200 / 1200 480 / 480 1200 / 1200 Output Total 1500 / 1500 1200 / 1200 450 / 450 1150 / 1150 Balance -300 / -300 -1200 / -1200 30 / 30 50 / 50 Weight 432 lb 1.696 oz 431 lb 9.6 oz 432 lb Microbiology Reports for the Last 24 Hours: Microbiology 08/20/21 10:47 Blood Blood Culture - Final NO GROWTH AFTER 5 DAYS Narrative: Exam remains significantly limited because of his body habitus. Lungs have symmetric air entry. Heart rate regular. Abdomen is soft. Distal perfusion is good. Neurologically he is intact but fatigued. Assessment and Plan (1) Pneumonia due to COVID-19 virus Status: Acute Category: Medical Code(s): U07.1 - COVID-19; J12.82 - Pneumonia due to coronavirus disease 2019 (2) Respiratory failure with hypoxia and hypercapnia Status: Acute Qualifiers: Chronicity: acute Qualified Code(s): J96.01 - Acute respiratory failure with hypoxia; J96.02 - Acute respiratory failure with hypercapnia Category: Medical Code(s): J96.91 - Respiratory failure, unspecified with hypoxia; J96.92 - Respiratory failure, unspecified with hypercapnia (3) CHF (congestive heart failure) Status: Acute Qualifiers: Category: Medical Code(s): I50.9 - Heart failure, unspecified (4) Chronic venous insufficiency Status: Acute Category: Medical Code(s): I87.2 - Venous insufficiency (chronic) (peripheral) (5) Morbid obesity Status: Chronic Category: Medical Code(s): E66.01 - Morbid (severe) obesity due to excess calories (6) Respiratory failure with hypoxia Status: Chronic Category: Medical Code(s): J96.91 - Respiratory failure, unspecified with hypoxia - Assessment and plan all Dx Assessment and Plan for all problems:: Overall patient is improving. Very slowly. Discussed with patient timing of going home with home health. Discussed that we would need him to wean to a more appropriate home nasal cannula device. Hopefully this can occur early next week. We will start incentive spirometry and follow labs tomorrow.
[2021-08-26 08:24] LABS: Chloride 99 mmol/L (98-107)
[2021-08-26 08:25] LABS: Sodium 138 mmol/L (136-145)
[2021-08-26 08:27] LABS: Alanine Aminotransferase 68 U/L (12-78); Aspartate Amino Transferase 81 U/L (17-59); Blood Urea Nitrogen 24 mg/dl (9-20); Creatinine Clearance Estimated 100 mL/min (50-200); Estimated Glomerular Filt Rate 100 ml/min (>60); GFR (African American) 121 ML/MIN (>60)
[2021-08-26 08:28] LABS: Albumin Level 3.3 g/dl (3.5-5.0); Albumin/Globulin Ratio 0.9 (1.1-1.8); Alkaline Phosphatase 84 U/L (38-126); Bilirubin,Total 0.7 mg/dl (0.2-1.3); Calcium 8.7 mg/dl (8.4-10.2); Carbon Dioxide 34 mmol/L (22.0-30.0); Globulin 3.6 g/dL (1.3-3.2); Glucose 88 mg/dl (74-100); Magnesium 2.1 mg/dl (1.6-2.3); Total Protein,Serum 6.9 g/dl (6.3-8.2)
--- NOTE | 2021-08-26 09:51 | PC.NURSE ---
Pt is covid positive and is unable to be inducted and has a dry cough. Pt has cup at bedside should he produce a sample.
--- NOTE | 2021-08-26 18:46 | PC.NURSE ---
Patient is non tele and on vapotherm. Patient decreased from 40L and 100% to 30L and 90%. Patient is up with assist times one. Patient had no IV access at start of shift, multiple attempts by three different nurses with no sucess, ultra sound guided IV obtained in afternoon. Plan of car is to wean oxygen. Bed in lowest position, phone and call light in reach.
[2021-08-27] VITALS (9 sets, daily range): BP systolic 110–140; BP diastolic 64–87; PULSE 74–85; RESP 16–22; TEMP 36.3–36.9; O2SAT 91–96; BMI 64.0
--- NOTE | 2021-08-27 03:03 | PC.NURSE ---
No acute changes t/o shift. Pt remains on Vapotherm 30L and 90% with stats >93%. Pt has been using urinal independently, urine has been clear and yellow. IV is patent infusing 100ml NS. VSS, call light within reach. Will continue to monitor.
--- NOTE | 2021-08-27 09:20 | HMH.ACPN2 ---
Internal Medicine - PN: Subj *Date: 08/27/21 *Time: 09:20 Interval history: Patient continues to make remarkable strides. Vapotherm settings are now down to 30 L and 90%. He feels much more comfortable, he is up sitting on the side of the bed, breathing easily. Exam Vital signs and Labs for Last 24 Hours: Temp Pulse Resp BP Pulse Ox 98.1 F 78 16 117/81 93 L 08/27/21 08:00 08/27/21 08:00 08/27/21 08:00 08/27/21 08:00 08/27/21 08:00 I & O for Last 24 hours: Intake & Output 08/24/21 08/25/21 08/26/21 08/27/21 11:59 11:59 11:59 11:59 Intake Total 480 / 480 1320 / 1320 480 / 480 Output Total 1200 / 1200 450 / 450 1150 / 1150 2500 / 2500 Balance -1200 / -1200 30 / 30 170 / 170 -2020 / -2020 Weight 431 lb 9.6 oz 432 lb 432 lb 0.003 oz Narrative: No changes on exam except he is shaved and apparently was getting very tired of his facial hair. He states that he will grow back his mustache and [place] for his sessions doing [employer] this October. Lungs have good air movement, some rhonchi. Heart rate regular, abdomen soft but morbidly obese. Extremities with brawny skin changes but no acute changes. Neurologically intact. Assessment and Plan (1) Pneumonia due to COVID-19 virus Status: Acute Category: Medical Code(s): U07.1 - COVID-19; J12.82 - Pneumonia due to coronavirus disease 2018 (2) Respiratory failure with hypoxia and hypercapnia Status: Acute Qualifiers: Chronicity: acute Qualified Code(s): J96.01 - Acute respiratory failure with hypoxia; J96.02 - Acute respiratory failure with hypercapnia Category: Medical Code(s): J96.91 - Respiratory failure, unspecified with hypoxia; J96.92 - Respiratory failure, unspecified with hypercapnia (3) CHF (congestive heart failure) Status: Acute Qualifiers: Category: Medical Code(s): I50.9 - Heart failure, unspecified (4) Chronic venous insufficiency Status: Acute Category: Medical Code(s): I87.2 - Venous insufficiency (chronic) (peripheral) (5) Morbid obesity Status: Chronic Category: Medical Code(s): E66.01 - Morbid (severe) obesity due to excess calories (6) Respiratory failure with hypoxia Status: Chronic Category: Medical Code(s): J96.91 - Respiratory failure, unspecified with hypoxia - Assessment and plan all Dx Assessment and Plan for all problems:: Stable and steady improvement. Continue oxygen weaning. Possibly able to discharge home early next week if on appropriate home nasal cannula oxygen flow.
--- NOTE | 2021-08-27 09:30 | HMH.ACPN ---
Internal Medicine - PN: Subj *Date: 08/27/21 *Time: 09:30 Exam Vital signs and Labs for Last 24 Hours: Temp Pulse Resp BP Pulse Ox 98.1 F 78 16 117/81 93 L 08/27/21 08:00 08/27/21 08:00 08/27/21 08:00 08/27/21 08:00 08/27/21 08:00 I & O for Last 24 hours: Intake & Output 08/24/21 08/25/21 08/26/21 08/27/21 23:59 23:59 23:59 23:59 Intake Total 240 / 240 1320 / 1320 720 / 720 Output Total 450 / 450 325 / 825 2225 / 3025 1100 / 1100 Balance -210 / -210 995 / 495 -1505 / -2305 -1100 / -1100 Weight 195.77 kg 195.952 kg 195.952 kg Assessment and Plan (1) Pneumonia due to COVID-19 virus Status: Acute Category: Medical Code(s): U07.1 - COVID-19; J12.82 - Pneumonia due to coronavirus disease 2019 (2) Respiratory failure with hypoxia and hypercapnia Status: Acute Qualifiers: Chronicity: acute Qualified Code(s): J96.01 - Acute respiratory failure with hypoxia; J96.02 - Acute respiratory failure with hypercapnia Category: Medical Code(s): J96.91 - Respiratory failure, unspecified with hypoxia; J96.92 - Respiratory failure, unspecified with hypercapnia (3) CHF (congestive heart failure) Status: Acute Qualifiers: Category: Medical Code(s): I50.9 - Heart failure, unspecified (4) Chronic venous insufficiency Status: Acute Category: Medical Code(s): I87.2 - Venous insufficiency (chronic) (peripheral) (5) Morbid obesity Status: Chronic Category: Medical Code(s): E66.01 - Morbid (severe) obesity due to excess calories (6) Respiratory failure with hypoxia Status: Chronic Category: Medical Code(s): J96.91 - Respiratory failure, unspecified with hypoxia The patient's infection will respond to the chosen ABx?: Yes Is the patient receiving the right drug, dose, and route?: Yes Could a more targeted ABx be ordered?: No
[2021-08-27 10:03] LABS: Chloride 99 mmol/L (98-107); Potassium 4.9 mmoL/L (3.5-5.1); Sodium 139 mmol/L (136-145)
[2021-08-27 10:05] LABS: Alanine Aminotransferase 77 U/L (12-78); Aspartate Amino Transferase 61 U/L (17-59); Blood Urea Nitrogen 21 mg/dl (9-20); Creatinine Clearance Estimated 89 mL/min (50-200); Estimated Glomerular Filt Rate 87 ml/min (>60); GFR (African American) 106 ML/MIN (>60)
[2021-08-27 10:06] LABS: Albumin Level 3.8 g/dl (3.5-5.0); Alkaline Phosphatase 88 U/L (38-126); Anion Gap 13.9 mEq/L (5-15); Bilirubin,Total 0.9 mg/dl (0.2-1.3); Calcium 9.4 mg/dl (8.4-10.2); Carbon Dioxide 31 mmol/L (22.0-30.0); Globulin 3.9 g/dL (1.3-3.2); Glucose 126 mg/dl (74-100); Total Protein,Serum 7.7 g/dl (6.3-8.2)
--- NOTE | 2021-08-27 19:27 | PC.NURSE ---
NO CHANGES THIS SHIFT, HAS BEEN UP TO CHAIR T/O SHIFT AND TOLERATED WELL, REMAINS ON VAPOTHERM. CALL LIGHT WITHIN REACH.
[2021-08-28] VITALS (12 sets, daily range): BP systolic 130–156; BP diastolic 61–83; PULSE 63–86; RESP 18–22; TEMP 36.8–37.1; O2SAT 89–98; BMI 64.0
--- NOTE | 2021-08-28 03:16 | PC.NURSE ---
A&OX4. TOLERATING VAPOTHERM AT 30L 80%. O2 SAT IN LOW-MID 90S. WILL DESAT TO LOW 80S WITH ACTIVITY BUT QUICKLY RECOVERS. PT HAS HAD NO C/O THUS FAR THIS SHIFT. PT HAS REMAINED IN CHAIR, STATING HE IS MORE COMFORTABLE. RESTING MAJORITY OF SHIFT. COVID PRECAUTIONS IN PLACE, VSS WILL CONTINUE TO MONITOR.
--- NOTE | 2021-08-28 10:06 | HMH.ACPN2 ---
Internal Medicine - PN: Subj *Date: 08/28/21 *Time: 14:41 Interval history: Patient continues to make good strides. Vapotherm settings are now down to 30 L and 50%. He feels comfortable, he is up sitting on the side of the bed, breathing easily. afebrile Exam Vital signs and Labs for Last 24 Hours: Temp Pulse Resp BP Pulse Ox 98.3 F 86 18 156/77 H 93 L 08/28/21 04:00 08/28/21 04:00 08/28/21 04:00 08/28/21 04:00 08/28/21 06:45 Laboratory Results - last 24 hr 08/27/21 09:49: Sodium 139, Potassium 4.9, Chloride 99, Carbon Dioxide 31 H, Anion Gap 13.9, BUN 21 H, Creatinine 0.90, Estimated Creat Clear 89, Estimated GFR 87, Est GFR ( Amer) 106, Glucose 126 H, Calcium 9.4, Total Bilirubin 0.9, AST 61 H, ALT 77, Alkaline Phosphatase 88, Total Protein 7.7, Albumin 3.8 D, Globulin 3.9 H, Albumin/Globulin Ratio 1.0 L I & O for Last 24 hours: Intake & Output 08/25/21 08/26/21 08/27/21 08/28/21 23:59 23:59 23:59 23:59 Intake Total 1320 / 1320 720 / 720 840 / 840 Output Total 325 / 825 2225 / 3025 2125 / 3125 1000 / 1000 Balance 995 / 495 -1505 / -2305 -1285 / -2285 -1000 / -1000 Weight 195.952 kg 195.952 kg 195.952 kg - Constitutional mild distress, morbidly obese, disheveled - *Routine HEENT Exam Head: Present: normocephalic Eye: Present: EOMI, PERRL ENT: Present: mucous membranes moist - *Routine Neck Exam Present: supple. Absent: lymphadenopathy - *Routine Respiratory Exam Present: CTA bilaterally, distant breath sounds. Absent: crackles - *Routine Cardiovascular Exam Present: RRR - *Routine Abdominal Exam Present: soft, normoactive bowel sounds, obese. Absent: tenderness Comments: [place] edema of pannus - *Routine Extremities Exam Present: edema (Dense chronic woody edema left lower extremity worse than right. Hyper keratosis, chronic stasis dermatitis). Absent: cyanosis, clubbing - *Routine Skin Exam Present: warm - *Routine Neurological Exam Present: alert, oriented X3 Assessment and Plan (1) Pneumonia due to COVID-19 virus Status: Acute Category: Medical Code(s): U07.1 - COVID-19; J12.82 - Pneumonia due to coronavirus disease 2019 (2) Respiratory failure with hypoxia and hypercapnia Status: Acute Qualifiers: Chronicity: acute Qualified Code(s): J96.01 - Acute respiratory failure with hypoxia; J96.02 - Acute respiratory failure with hypercapnia Category: Medical Code(s): J96.91 - Respiratory failure, unspecified with hypoxia; J96.92 - Respiratory failure, unspecified with hypercapnia (3) CHF (congestive heart failure) Status: Acute Qualifiers: Category: Medical Code(s): I50.9 - Heart failure, unspecified (4) Chronic venous insufficiency Status: Acute Category: Medical Code(s): I87.2 - Venous insufficiency (chronic) (peripheral) (5) Morbid obesity Status: Chronic Category: Medical Code(s): E66.01 - Morbid (severe) obesity due to excess calories (6) Respiratory failure with hypoxia Status: Chronic Category: Medical Code(s): J96.91 - Respiratory failure, unspecified with hypoxia - Assessment and plan all Dx Assessment and Plan for all problems:: 56-year-old male with morbid obesity who presented with acute hypoxemic respiratory failure secondary to COVID-19 pneumonia. Patient is unvaccinated. Oxygen saturations remain appropriate on Vapotherm. Decision made not to escalate care to invasive ventilation if patient decompensates. Plan as follows Acute hypoxemic respiratory failure COVID-19 pneumonia -Continue Covid protocol including medications as ordered. -Continue Vapotherm, tolerating wean. Currently stable at this time on FiO2 of 50%. Cardiac diet DNI Continues to require inpatient management for hypoxemic respiratory failure. Patient's condition is tenuous but improving. Prognosis is guarded. Stable and steady improvement. Possibly able to discharge home this coming week if on appropr
[2021-08-28 15:14] LABS: Chloride 100 mmol/L (98-107)
[2021-08-28 15:15] LABS: Potassium 5.5 mmoL/L (3.5-5.1); Sodium 134 mmol/L (136-145)
[2021-08-28 15:17] LABS: Alanine Aminotransferase 77 U/L (12-78); Alkaline Phosphatase 82 U/L (38-126); Aspartate Amino Transferase 60 U/L (17-59); Bilirubin,Total 0.6 mg/dl (0.2-1.3); Blood Urea Nitrogen 25 mg/dl (9-20); Creatinine Clearance Estimated 100 mL/min (50-200); Estimated Glomerular Filt Rate 100 ml/min (>60); GFR (African American) 121 ML/MIN (>60)
[2021-08-28 15:18] LABS: Albumin Level 3.9 g/dl (3.5-5.0); Anion Gap 14.5 mEq/L (5-15); Calcium 9.3 mg/dl (8.4-10.2); Carbon Dioxide 25 mmol/L (22.0-30.0); Globulin 3.9 g/dL (1.3-3.2); Glucose 139 mg/dl (74-100); Total Protein,Serum 7.8 g/dl (6.3-8.2)
--- NOTE | 2021-08-28 19:37 | PC.NURSE ---
AOX4, VAPOTHERM TITRATED TO 50% THIS SHIFT. DENIES PAIN. GOOD URINARY OUTPUT NOTED. UP TO CHAIR FOR ALL OF SHIFT.
[2021-08-29] VITALS (12 sets, daily range): BP systolic 101–149; BP diastolic 53–80; PULSE 66–105; RESP 17–22; TEMP 36.4–37.2; O2SAT 86–97; BMI 64.0
--- NOTE | 2021-08-29 03:25 | PC.NURSE ---
A&OX4. PT TOLERATING VAPOTHERM AT 30% 50L. O2 SATS LOW 90S. PT REMAINS IN CHAIR T/O SHIFT, STATES HE IS MORE COMFORTABLE HERE THAN IN THE BED. PT HAS HAD NO C/O THUS FAR. COVID PRECAUTIONS IN PLACE. VSS WILL CONTINUE TO MONITOR.
[2021-08-29 06:14] LABS: Basophils # 0.1 K/mm3 (0-0.2); Basophils % 0.7 % (0.1-2.0); Eosinophils # 0.1 K/mm3 (0.0-0.4); Eosinophils % 0.9 % (0.1-12.0); Hematocrit 48.3 % (42.0-52.0); Hemoglobin 15.2 g/dL (14.1-18.0); Lymphocytes # 1.6 K/mm3 (0.7-4.5); Mean Corpuscular HGB Conc 31.4 g/dL (31.8-35.4); Mean Corpuscular Hemoglobin 30.7 pg (27.0-31.2); Mean Corpuscular Volume 97.5 fl (80-94); Mean Platelet Volume 8.9 fl (7.4-10.4); Monocytes # 0.9 K/mm3 (0.1-1.0); Monocytes % 7.8 % (1.7-9.3); Neutrophils # 8.8 K/mm3 (1.8-7.8); Neutrophils % 76.6 % (37.0-80.0); Platelet Count 497 K/mm3 (142-424); Red Blood Count 4.95 M/mm3 (4.60-6.20); Red Cell Distribution Width 15.6 % (11.5-17.5); White Blood Count 11.5 K/mm3 (4.8-10.8)
[2021-08-29 06:59] LABS: Alanine Aminotransferase 75 U/L (12-78); Alkaline Phosphatase 77 U/L (38-126); Aspartate Amino Transferase 58 U/L (17-59); Bilirubin,Total 0.8 mg/dl (0.2-1.3); Creatinine Clearance Estimated 89 mL/min (50-200); Glucose 91 mg/dl (74-100); Magnesium 2.1 mg/dl (1.6-2.3); Sodium 136 mmol/L (136-145)
[2021-08-29 07:45] LABS: Albumin Level 3.8 g/dl (3.5-5.0); Calcium 9.3 mg/dl (8.4-10.2); Carbon Dioxide 31 mmol/L (22.0-30.0); Chloride 99 mmol/L (98-107); Total Protein,Serum 7.8 g/dl (6.3-8.2)
--- NOTE | 2021-08-29 07:55 | HMH.ACPN2 ---
Internal Medicine - PN: Subj *Date: 08/29/21 *Time: 07:56 Interval history: Overall patient did well overnight, Vapotherm is continued to be weaned down. Patient is without complaints and wishes to go home. Exam Vital signs and Labs for Last 24 Hours: Temp Pulse Resp BP Pulse Ox 98.1 F 90 19 144/80 H 94 L 08/29/21 04:00 08/29/21 06:10 08/29/21 04:00 08/29/21 04:00 08/29/21 06:10 Laboratory Results - last 24 hr 08/28/21 14:50: Sodium 134 L, Potassium 5.5 H, Chloride 100, Carbon Dioxide 25, Anion Gap 14.5, BUN 25 H, Creatinine 0.80, Estimated Creat Clear 100, Estimated GFR 100, Est GFR ( Amer) 121, Glucose 139 H, Calcium 9.3, Total Bilirubin 0.6, AST 60 H, ALT 77, Alkaline Phosphatase 82, Total Protein 7.8, Albumin 3.9, Globulin 3.9 H, Albumin/Globulin Ratio 1.0 L 08/29/21 05:42: WBC 11.5 H, RBC 4.95, Hgb 15.2, Hct 48.3, MCV 97.5 H, MCH 30.7, MCHC 31.4 L, RDW 15.6, Plt Count 497 H D, MPV 8.9, Neut % (Auto) 76.6, Lymph % (Auto) 14.0, [place] % (Auto) 7.8, Eos % (Auto) 0.9, Baso % (Auto) 0.7, Neut # (Auto) 8.8 H, Lymph # (Auto) 1.6, [place] # (Auto) 0.9, Eos # (Auto) 0.1, Baso # (Auto) 0.1 I & O for Last 24 hours: Intake & Output 08/26/21 08/27/21 08/28/21 08/29/21 11:59 11:59 11:59 11:59 Intake Total 1320 / 1320 600 / 720 960 / 960 2379 / 2379 Output Total 1150 / 1150 2500 / 2900 2825 / 2825 2400 / 2400 Balance 170 / 170 -1900 / -2180 -1865 / -1865 -21 / -21 Weight 432 lb 0.003 oz 432 lb 0.003 oz 432 lb 0.003 oz Narrative: Patient is now on 30 L flow on Vapotherm and 40% FiO2. Lungs have good air movement. Heart rate regular. Abdomen/extremities and neuro exam have unchanged. And exam clear Assessment and Plan (1) Pneumonia due to COVID-19 virus Status: Acute Category: Medical Code(s): U07.1 - COVID-19; J12.82 - Pneumonia due to coronavirus disease 2018 (2) Respiratory failure with hypoxia and hypercapnia Status: Acute Qualifiers: Chronicity: acute Qualified Code(s): J96.01 - Acute respiratory failure with hypoxia; J96.02 - Acute respiratory failure with hypercapnia Category: Medical Code(s): J96.91 - Respiratory failure, unspecified with hypoxia; J96.92 - Respiratory failure, unspecified with hypercapnia (3) CHF (congestive heart failure) Status: Acute Qualifiers: Category: Medical Code(s): I50.9 - Heart failure, unspecified (4) Chronic venous insufficiency Status: Acute Category: Medical Code(s): I87.2 - Venous insufficiency (chronic) (peripheral) (5) Morbid obesity Status: Chronic Category: Medical Code(s): E66.01 - Morbid (severe) obesity due to excess calories (6) Respiratory failure with hypoxia Status: Chronic Category: Medical Code(s): J96.91 - Respiratory failure, unspecified with hypoxia - Assessment and plan all Dx Assessment and Plan for all problems:: Overall improving. DC IV medications today. DC IV fluids. PT/OT evaluation to ambulate. Possible discharge home tomorrow if on nasal cannula. Patient has CPAP at night. Patient will need discharge on Xarelto given high risk of DVT/PE issues.
--- NOTE | 2021-08-29 08:57 | HMH.PTEV ---
Physical Therapy Evaluation Rehab PT IP Evaluation Start: 08/24/21 08:30 Freq: ONCE Status: Complete Protocol: Document 08/24/21 11:00 SHANIKA (Rec: 08/24/21 11:56 SHANIKA [id number]) Subjective/History History History This is the initial evaluation for Rafael Malhotra. Pt is a 56 y/o male admitted to ED for SOA related to COVID. - note done by Lito Roy, SPT Subjective Subjective Pt states he lives at home with his . Pt states he uses a SP cane as his mobility aid. Rehab PT IP Eval Objective Appearance Patient Behavior Appropriate,Cooperative, Fatigued Patient Orientation Place,Time,Name,Birthday,Year Difficulty following instructions none Speech Pattern Clear,Appropriate,Coherent Ambulation Patient Able to Ambulate No Balance Ability to Arise Able, uses arms to help Sitting Balance Steady, safe Standing Balance Steady, wide stance Dynamic Sitting Balance Ability Normal Dynamic Standing Balance Ability Fair Transfers Bed Transfer Ability Contact Guard/Hand Hold Sit to Stand Bed Transfer Ability Contact Guard/Hand Hold Rehab PT IP prob,goals,plan Problems Date of Evaluation: 08/24/21 PT IP Problems Transfers,Gait,Balance,Self care,Safety Rehab Potential Rehab Potential Fair Equipment Needs Assistive Devices Rolling / Wheeled Walker Plan PT Intervention Plan Bed Mobility,Transfers,Gait, Balance,Self care,Safety, Therapeutic Exercise PT Plan Frequency BID Duration LOS Discharge Goals Bed Transfer Ability Supervision/Stand by Ambulation Assistive Device Straight Cane Ambulation Distance (feet) 2 Discharge Plan PT Discharge Plan Pt will benefit skilled physical therapy to help improve strength, endurance, safe gait, ambulation, and self care, and independence. Once pt medically stable he will be safe to return home. G -code Required No Eval Complexity Eval Charge Codes 84920 - Low Complexity Rehab PT IP Evaluation Start: 08/29/21 07:57 Freq: ONCE Status: Active Protocol:
[2021-08-29 10:01] LABS: Blood Urea Nitrogen 27 mg/dl (9-20)
--- NOTE | 2021-08-29 11:09 | PC.NURSE ---
RESPIRATORY CARE NOTE: PT OXYGEN DECREASED TO 4 LPM AT THIS TIME. WILL CONTINUE TO WEAN OXYGEN VIA NASAL CANNULA TOLERATED.
--- NOTE | 2021-08-29 16:20 | PC.NURSE ---
pt has been successfully weaned to 3.5 L NC. pt will desat to the lower 80's when getting up to the BSC, but will recover quickly to the 90's. no other acute changes or complaints, will continue to monitor.
[2021-08-30] VITALS: O2SAT 92
[2021-08-30 04:00] VITALS: BP 101/54; PULSE 67; RESP 20; TEMP 36.6; O2SAT 94
[2021-08-30 06:20] VITALS: PULSE 78; PULSE 79; O2SAT 94
--- NOTE | 2021-08-30 06:42 | HMH.DCSUM ---
General - General Admission date:: 08/20/21 Discharge date: 08/30/21 HPI HPI: Brought in by ambulance for shortness of breath. States he is not felt well for 1 week since the [place] festival. He has chills. Productive cough. Denies fever. States that he has been checking his pulse ox regularly. He says he does this because he has had issues in the past . He denies any lung problems but says that he has sleep apnea. He says his normal pulse oximetry runs in the 80s and 90s. Today he was short of breath and when he checked it his pulse ox was 35%. EMS reports a pulse ox in the 70s on their arrival. He is brought in on CPAP. He refused an IV in route, wanting to wait until he got to the hospital to have it started. EMS reports that he was speaking in 2 word sentences upon their arrival but after placed on CPAP was able to speak in full sentences and appeared much more comfortable. The patient says he feels much better on CPAP. He also had wheezing upon EMS arrival and was given 2 DuoNeb treatments during transport. No known exposure to COVID-19. He has not been vaccinated against COVID-19. Above note per ER. Work-up in ER revealed classic Covid pneumonitis, evidence of significant infiltrate, hypoxia and respiratory acidosis. Patient placed on BiPAP, helped him dramatically. He reiterated his desire not to be intubated. Patient transferred to hospital floor. Of note this morning patient states that he already feels 100% better than when I came in and he wishes to eat breakfast. Hospital Course Hospital Course: 56-year-old male with morbid obesity who presented with acute hypoxemic respiratory failure secondary to COVID-19 pneumonia. Patient is unvaccinated. Patient was initially in respiratory failure and started on BiPAP. Over the course of his hospitalization, he was transitioned to Vapotherm and gradually weaned down to nasal cannula oxygen. Has been stable on nasal cannula oxygen between 3 and 5 L for over 48 hours. We will plan to go home with oxygen at 5 L. Acute hypoxemic respiratory failure COVID-19 pneumonia -Initiated on Covid protocol including vitamins, supplements, anticoagulation, steroids, remdesivir and baricitinib. Responded well to this regimen with gradual improvement and decreased oxygen support. -Assessed by physical therapy during hospitalization. Patient deemed at baseline level of mobility and function. Stable for discharge home. Of note, has chronic left lower extremity stasis dermatitis. Wears Unna boots for his lymphedema. Wound care consulted on day of discharge to place an Unna boot. Patient replaces them under his own power at home with the assistance of his . Throughout hospitalization patient's kidney and liver function remained stable. Glucose remained stable even with steroids. Decision made early in hospitalization to not escalate care to intubation/ventilator given poor prognosis. Patient adamant about not being intubated. Examined on day of discharge. Medically stable to discharge home. We will have close follow-up in the coming week to assess continued improvement. Plan to discharge home with Xarelto daily for DVT/PE prophylaxis given high risk with his morbid obesity, sedentary lifestyle, and Covid for thromboembolic events. Objective Vital signs: Temp Pulse Resp BP Pulse Ox 97.8 F 78 20 101/54 L 94 L 08/30/21 04:00 08/30/21 06:20 08/30/21 04:00 08/30/21 04:00 08/30/21 06:20 no acute distress, morbidly obese, disheveled - *Routine HEENT Exam Head: Present: normocephalic Eye: Present: EOMI, PERRL ENT: Present: mucous membranes moist - *Routine Neck Exam Present: supple - *Routine Respiratory Exam Present: CTA bilaterally - *Routine Cardiovascular Exam Present: RRR - *Routine Abdominal Exam Present: soft, normoactive bowel sounds. Absent: tenderness - *Routine Extremities Exam Present: edema (woody dense edema bilaterally
[2021-08-30 07:24] VITALS: BP 142/67; PULSE 87; RESP 23; TEMP 36.5; O2SAT 93
[2021-08-30 09:31] VITALS: O2SAT 74
--- NOTE | 2021-08-30 09:43 | SW/DCPLANNER ---
SET UP HOME 02 FOR THIS PATIENT WHO IS DISCHARGING HOME TODAY... HOME 02 SET UP WITH JACOB AND ONCE PATIENTS OXYGEN IS BROUGHT TO THE HOSPITAL....
[2021-08-30 11:32] VITALS: PULSE 90
== END 2021-08-30 12:00 | disposition home or self-care (01) | DRG 177 ==
LOC: ER 11:28 → 2ND 12:13
PROVIDERS: Internal Medicine Adolescent Medicine; Admitting Provider Internal Medicine Adolescent Medicine; Emergency Provider Emergency Medicine; PCP Nurse Practitioner Family; Visit Provider Internal Medicine Adolescent Medicine
DX: U07.1 COVID-19 (principal); J12.82 Pneumonia due to coronavirus disease 2019; J96.02 Acute respiratory failure with hypercapnia; J96.21 Acute and chronic respiratory failure with hypoxia; Z68.44 Body mass index [BMI] 60.0-69.9, adult; E66.01 Morbid (severe) obesity due to excess calories; I87.2 Venous insufficiency (chronic) (peripheral); I50.9 Heart failure, unspecified; E78.5 Hyperlipidemia, unspecified; I73.9 Peripheral vascular disease, unspecified; Z87.891 Personal history of nicotine dependence; I11.0 Hypertensive heart disease with heart failure
CPT/HCPCS: 36415; 71045; 80053; 82803; 83605; 83735; 83880; 84484; 85007; 85025; 87040; 87077; 93005; 94640; 94660; 94760; 94761; 96365; 96375; 97161; 97162; 97165; 97530; 99285; C9803; J1956; U0003; U0005